=== PATIENT | female | born 1985 | race Caucasian/White ===

== ENCOUNTER 2023-01-23 20:47 | Outpatient (REF) | payer BC, SELFPAY ==
[2023-01-29 14:09] LABS: Age Gdln ACOG Testing Note (.); HPV Aptima Negative (Negative); IGP, Aptima HPV, rfx 16/18,45 Note (.)
== END 2023-01-23 20:48 | disposition home or self-care (01) ==
LOC: LAB 20:47
PROVIDERS: Visit Provider Obstetrics & Gynecology
DX: Z01.419 Encounter for gynecological examination (general) (routine) without abnormal findings (principal)
CPT/HCPCS: 87624; G0145

== ENCOUNTER 2023-07-28 11:04 | Outpatient (OUT) | payer BC, SELFPAY ==
--- NOTE | 2023-07-28 11:12 | MM_ITS ---
Patient Name: SE WOLF MR#: [id number] : 1985 Exam Date: 07/28/2023 Ordering Doctor: DR Ariel Craig . RADIOLOGY REPORT PROCEDURE: MM TOMOSYNTHESIS SCREENING BI COMPARISON: None. INDICATIONS: Screening Calculator Name NCI Breast Cancer Risk Assessment Tool 5 Year Breast Cancer Risk 0.60% Lifetime Breast Cancer Risk 11.10% Personal Breast Cancer No Personal Ovarian Cancer No Treatments None Family Cancers None LOCATION: [facility] BREAST COMPOSITION: The breasts are heterogeneously dense,which may obscure small masses. FINDINGS: DIAGNOSTIC CATEGORY 2--BENIGN FINDING: Scattered benign-appearing calcifications are present. Scattered benign-appearing lymph nodes are present. RIGHT BREAST: No significant suspicious finding. LEFT BREAST: No significant suspicious finding. RECOMMENDATIONS: ROUTINE MAMMOGRAM AND CLINICAL EVALUATION IN 12 MONTHS. PLEASE NOTE: A NORMAL MAMMOGRAM DOES NOT EXCLUDE THE POSSIBILITY OF BREAST CANCER. A CLINICALLY SUSPICIOUS PALPABLE LUMP SHOULD BE BIOPSIED. Dictated by: Deandre Tse MD on 07/28/2023 at 14:05 Approved by: Deandre Tse MD on 07/28/2023 at 14:06
== END 2023-07-28 11:05 | disposition home or self-care (01) ==
LOC: MAMMO 11:06
PROVIDERS: PCP Family Medicine; Visit Provider Obstetrics & Gynecology
DX: Z12.31 Encounter for screening mammogram for malignant neoplasm of breast (principal)
CPT/HCPCS: 77063; 77067

== ENCOUNTER 2024-01-29 20:43 | Outpatient (REF) | payer BC, SELFPAY | END 2024-01-29 20:44 | disposition home or self-care (01) | LOC: LAB 20:43 | PROVIDERS: PCP Family Medicine; Visit Provider Obstetrics & Gynecology | DX: Z01.419 Encounter for gynecological examination (general) (routine) without abnormal findings (principal) | CPT/HCPCS: 88175 ==

== ENCOUNTER 2024-12-18 07:31 | Outpatient (OUT) | payer BC, SELFPAY ==
--- OUTSIDE RECORDS SUMMARY | 2024-12-18 07:33 | XMS_ITS | CCD ---
Author Organization [facility] Care Team Providers Care Cso Name Role Phone Cortez Nayak Unavailable DARNELL ROBERTSON Primary Care Physician KIARA ., DR SAENZ Admitting Unavailable KIARA ., DR SAENZ Attending Unavailable NADERER, DR MASTER Evans Primary Care Unavailable KIARA ., DR SAENZ Consulting Unavailable AICHHOLZ, CLINICAL RESEARCHER TAYLER Admitting Unavailable AICHHOLZ, CLINICAL RESEARCHER TAYLER Attending Unavailable AICHHOLZ, CLINICAL RESEARCHER TAYLER Primary Care Unavailable AICHHOLZ, CLINICAL RESEARCHER TAYLER Consulting Unavailable AICHHOLZ, CLINICAL RESEARCHER TAYLER Admitting Unavailable AICHHOLZ, CLINICAL RESEARCHER TAYLER Attending Unavailable AICHHOLZ, CLINICAL RESEARCHER TAYLER Referring Unavailable AICHHOLZ, CLINICAL RESEARCHER TAYLER Primary Care Unavailable AICHHOLZ, CLINICAL RESEARCHER TAYLER Consulting Unavailable NICOLETTE, DR DARNELL Martinez Admitting Unavailable NICOLETTE, DR DARNELL Martinez Attending Unavailable INESEREMichelle, DR MASTER Evans Primary Care Unavailable NICOLETTE, DR DARNELL Martinez Consulting Unavailable AICHHOLZ, CLINICAL RESEARCHER TAYLER Admitting Unavailable AICHHOLZ, CLINICAL RESEARCHER TAYLER Attending Unavailable AICHHOLZ, CLINICAL RESEARCHER TAYLER Referring Unavailable NADEREMichelle, DR MASTER Evans Primary Care Unavailable AICHHOLZ, CLINICAL RESEARCHER TAYLER Consulting Unavailable FAWWAD, PICKENS H Admitting Unavailable FAWWAD, PICKENS H Attending Unavailable RAMOS, DR MASTER Evans Primary Care Unavailable FAWWAD, PICKENS H Consulting Unavailable Ramesh Paniagua Primary Care Physician [phone] Ramesh Paniagua MD Primary Care Provider Ramesh Paniagua Attending Unavailable HAKEEM SOLIMAN Admitting Unavailable HAKEEM SOLIMAN Attending Unavailable Ramesh Paniagua Admitting Unavailable Ramesh Paniagua Attending Unavailable Ramesh Paniagua Attending Unavailable Ramesh Paniagua Attending Unavailable Ramesh Paniagua Attending Unavailable JOURDAN HAKEEM A Attending Unavailable Ramesh Paniagua Attending Unavailable Ramesh Paniagua Attending Unavailable LETTY ALMENDAREZ Attending Unavailable LETTY ALMENDAREZ Attending Unavailable NATHAN OH Attending Unavailable NATAHN OH Referring Unavailable JOURDAN, CLINICAL RESEARCHER HAKEEM A Attending Unavailabl reyna LISAJOURDAN, CLINICAL RESEARCHER HAKEEM A Admitting UnavailMD Ramesh Cat Attending Unavailable MD Ramesh Paniagua Attending Unavailable MD Ramesh Paniagua Admitting Unavailable MD Ramesh Paniagua Attending Unavailable JOURDAN, CLINICAL RESEARCHER HAKEEM A Attending Unavailabl e JOURDAN, CLINICAL RESEARCHER HAKEEM A Attending UnavailRamesh Cat Attending Unavailable Ramesh Paniagua Admitting Unavailable Ramesh Paniagua Attending Unavailable JOURDAN, CLINICAL RESEARCHER HAKEEM A Attending Unavailabl e JOURDAN CLINICAL RESEARCHER HAKEEM A Attending Unavailabl e Allergies Allergy Classification Reported Allergen(s) Allergy Type Date of Onset Reaction(s) Facility (4 sources) methylPREDNISolone Drug Allergy 3 Unknown [facility] Work Phone: Medications Current Medications Medication Drug Class(es) Dates Sig (Normalized) Sig (Original) atorvastatin 20 mg oral tablet (8 sources) HMG-CoA Reductase Inhibitor Start: 08-10-2024 take 1 tablet by mouth once daily atorvastatin 20 mg Tab 20 mg = 1 tab(s), Oral, Daily, # 90 tab(s), Refills(s) 1, Pharmacy: [facility]/pharmacy #[id number], 162.5, cm, 08/10/24 7:11:00 EDT, Height/Length Dosing, 93.2, kg, 08/10/24 7:11:00 EDT, Weight Dosing Start Date: 08/10/24 Status: Ordered Quantity: 90.0 Unit: tab(s) Repeat number: 2 Start: 01-21-2023 take 1 tablet by aba th in the morning atorvastatin (Lipitor) 20 MG tablet Take 20 mg by mouth in the morning. 01/21/2023 Active brompheniramine maleate 0.4 mg/ml / dextromethorphan hydrobromide 2 mg/ml / pseudoephedrine hydrochloride 6 mg/ml oral solution (2 sources) alpha-Adrenergic Agonist, Uncompetitive R-dnjiwr-E-aspartate Receptor Antagonist, Sigma-1 Agonist Start: 04-28-2022 take 5 mL by mouth four times daily for cough and congestion Bromfed DM oral syrup 5 mL, Oral, QID for cough and congestion, 200 mL, Refill(s) 0, [facility]/pharmacy #[id number], 160, cm, 04/28/22 1:52:00 EST, Height/Length Dosing, 98, kg, 04/28/22 1:52:00 EST, Weight Dosing Start Date: 04/28/22 Status: Ordered cetirizine hydrochloride 10 mg oral tablet (10 sources) Histamine-1 Receptor Antagonist Start: 08-10-2024 take 1 tablet by mouth once daily cetirizine 10 mg Tab See Instructions, TAKE 1 TABLET BY MOUTH EVERY DAY, # 90 tab(s), Refills(s) 4, Pharmacy: [facility]/pharmacy #[id number], 162.5, cm, 08/10/24 7:11:00 EDT, Height/Length Dosing, 93.2, kg, 08/10/24 7:11:00 EDT, Weight Dosing Start Date: 08/10/24 Status: Ordered Quantity: 90.0 Unit: tab(s) Repeat number: 5 Start: 01-16-2023 cetirizine (Zy rTEC) 10 MG tablet Take 10 mg by mouth. 01/16/2023 Active Start: 10-12-2019 take 1 tablet by aba th every twelve hours Cetirizine HCl 10 MG 1 tablet Orally bid for 5 days Sep, Active Dexcom G7 Flash Glucose Monitoring 15 Day System (1 source) Start: 08-10-2024 Dexcom G7 Flash Glucose Monitoring 15 Day System Dexcom G7 Flash Glucose Monitoring 15 Day System, See Instructions, 6 EA, 1, Dexcome G7 Flash Glucose Monitoring 15 Day System Please change every 15 days., [facility]/pharmacy #[id number], Supply, 162.5, cm, 08/10/24 7:11:00 EDT, Height/Length Dosing, 93.2, kg, 08/10/24 7:11:00 EDT, Weight Dosing Start Date: 08/10/24 Status: Ordered Quantity: 6.0 Unit: EA Repeat number: 2 Indications: Personal history of nicotine dependence; Body mass index [BMI] 35.0-35.9, adult; Obesity, class 2; Type 2 diabetes mellitus without complications; Gastro-esophageal reflux disease without esophagitis; Polyphagia; 0.5 ML dulaglutide 9 MG/ML Auto-Injector (4 sources) GLP-1 Receptor Agonist Start: 08-10-2024 inject 4.5 mg by subcutaneous injection every week dulaglutide 4.5 mg/0.5 mL subcutaneous solution 4.5 mg, SubCutaneous, qWeek, # 12 EA, Refills(s) 0, Pharmacy: [facility]/pharmacy #[id number], 162.5, cm, 08/10/24 7:11:00 EDT, Height/Length Dosing, 93.2, kg, 08/10/24 7:11:00 EDT, Weight Dosing Start Date: 08/10/24 Status: Ordered Quantity: 12.0 Unit: EA Repeat number: 1 Start: 10-22-2023 inject 3 mg by subcu taneous injection every week Trulicity Pen 3 mg/0.5 mL subcutaneous solution 3 mg, SubCutaneous, qWeek, # 2 mL, Refills(s) 1, Pharmacy: [facility]/pharmacy #[id number], 162.5, cm, 10/22/23 8:59:00 EDT, Height/Length Dosing, 94.8, kg, 10/22/23 8:59:00 EDT, Weight Dosing Start Date: 10/22/23 Status: Ordered Start: 04-24-2023 inject 4.5 mg by sub cutaneous injection every week Trulicity Pen 4.5 mg/0.5 mL subcutaneous solution 4.5 mg, SubCutaneous, qWeek, # 12 EA, Refills(s) 0, Pharmacy: [facility]/pharmacy #[id number], 162.5, cm, 04/24/23 6:59:00 EST, Height/Length Dosing, 92.9, kg, 04/24/23 6:59:00 EST, Weight Dosing Start Date: 04/24/23 Status: Ordered Trulicity Active dulaglutide (Trulicity) 4.5 MG/0.5ML solution pen-injector (6 sources) Start: 01-16-2023 dulaglutide (Trulicity) 4.5 MG/0.5ML solution pen-injector Inject 4.5 mg under the skin. 01/16/2023 Active Flonase 0.05 mg/inh nasal spray (2 sources) Start: 05-29-2021 take 1 spray(s) nasal route twice daily Flonase 0.05 mg/inh nasal spray 1 spray(s), Nasal, BID, 16 gram, Refill(s) 0, each nostril Start Date: 05/29/21 Status: Ordered metFORMIN hydrochloride 500 mg oral tablet (10 sources) Biguanide Start: 08-10-2024 take 2 tablets by mouth twice daily MetFORMIN (Eqv-Glucophage XR) 500 mg oral tablet, extended release See Instructions, TAKE 2 TABLETS BY MOUTH TWICE A DAY, # 360 tab(s), Refills(s) 0, Pharmacy: [facility]/pharmacy #[id number], 162.5, cm, 08/10/24 7:11:00 EDT, Height/Length Dosing, 93.2, kg, 08/10/24 7:11:00 EDT, Weight Dosing Start Date: 08/10/24 Status: Ordered Quantity: 360.0 Unit: tab(s) Repeat number: 1 Start: 09-15-2023 take 2 tablets by [facility] twice daily MetFORMIN (Eqv-Glucophage XR) 500 mg oral tablet, extended release See Instructions, TAKE 2 TABLETS BY MOUTH TWICE A DAY, # 360 tab(s), Refills(s) 1, Pharmacy: [facility] STORE [id number], 162.5, cm, 07/24/23 7:03:00 EDT, Height/Length Dosing, 93.4, kg, 07/24/23 7:03:00 EDT, Weight Dosing Start Date: 09/15/23 Status: Ordered Start: 03-24-2023 take 2 tablets by [facility] twice daily Glucophage XR 500 mg Tab-ER 1,000 mg = 2 tab(s), Oral, BID, # 360 tab(s), Refills(s) 1, Pharmacy: [facility]/pharmacy #[id number], 162.5, cm, 03/20/23 7:02:00 EST, Height/Length Dosing, 94.5, kg, 03/20/23 7:02:00 EST, Weight Dosing Start Date: 03/24/23 Status: Ordered Start: 12-12-2022 take 1 tablet by [facility] every twenty-four hours in the morning metFORMIN XR (Glucophage-XR) 500 MG 24 hr tablet Take 1,000 mg by mouth in the morning and 1,000 mg before bedtime. 12/12/2022 Active metFORMIN HCl Ac tive omeprazole 40 mg delayed release oral capsule (9 sources) Proton Pump Inhibitor Start: 08-10-2024 take 1 capsule by mouth once daily omeprazole 40 mg Cap-DR See Instructions, TAKE 1 CAPSULE BY MOUTH EVERY DAY, # 90 cap(s), Refills(s) 0, Pharmacy: [facility]/pharmacy #[id number], 162.5, cm, 08/10/24 7:11:00 EDT, Height/Length Dosing, 93.2, kg, 08/10/24 7:11:00 EDT, Weight Dosing Start Date: 08/10/24 Status: Ordered Quantity: 90.0 Unit: cap(s) Repeat number: 1 Start: 12-12-2022 take 1 capsule by mo uth in the morning omeprazole (PriLOSEC) [address] capsule Take 40 mg by mouth in the morning. 03/12/2023 Active Problems Active Problems Problem Classification Problem Date Documented Date Episodic/Chronic Adjustment disorders (5 sources) Grief finding; Translations: [Stress and adjustment reaction] 01-16-2023 Chronic Administrative/socia l admission (2 sources) Patient encounter status; Translations: [Dietary counseling and surveillance] 2024 Episodic Asthma (4 sources) Unspecified asthma, uncomplicated; Translations: [Mild intermittent asthma] Onset: 05-31-2021 10-14-2022 Chronic Diabetes mellitus with complications (2 sources) Hyperglycemia due to type 2 diabetes mellitus; Translations: [Type 2 diabetes mellitus with hyperglycemia] 2024 Chronic Diabetes mellitus without complication (8 sources) Type 2 diabetes mellitus without complications; Translations: [Type 2 diabetes mellitus without complication] Onset: 05-31-2021 Chronic Disorders of lipid metabolism (11 sources) Hyperlipidemia, unspecified; Translations: [Pure hypercholesterolemia, unspecified] Onset: 05-31-2021 Chronic Esophageal disorders (3 sources) Gastroesophageal reflux disease without esophagitis 12-12-2022 Chronic Nonmalignant breast conditions (8 sources) Fibrocystic disease of breast; Translations: [Diffuse cystic mastopathy of unspecified breast] Onset: 01-29-2024 01-29-2024 Chronic Nutritional deficiencies (2 sources) Vitamin D deficiency; Translations: [Vitamin D deficiency, unspecified] 2024 Chronic Osteoarthritis (3 sources) Arthritis of joint of right shoulder region; Translations: [Primary osteoarthritis, right shoulder] Onset: 12-26-2020 Resolved: 12-26-2020 Chronic Other nutritional; endocrine; and metabolic disorders (3 sources) Calorie overload 11-11-2022 Chronic Other screening for suspected conditions (not mental disorders or infectious disease) (14 sources) Encounter for screening for malignant neoplasm of cervix; Translations: [Patient encounter status] Onset: 09-25-2021 Episodic Other upper respiratory disease (1 source) Allergic rhinitis; Translations: [Allergic rhinitis, unspecified] Chronic Other upper respiratory disease (3 sources) Seasonal allergy 01-16-2023 Chronic Other upper respiratory infections (1 source) Chronic sinusitis, unspecified; Translations: [CHRONIC SINUSITIS UNSPECIFIED] Onset: 05-31-2021 Chronic Other upper respiratory infections (1 source) Acute upper respiratory infection; Translations: [Acute upper respiratory infection, unspecified] Onset: 04-28-2022 Episodic Unclassified (3 sources) CONTACT W/AND (SUSP) EXPOS COVID-19; Translations: [CONTACT W/AND (SUSP) EXPOS COVID-19] Onset: 09-06-2021 Unclassified (2 sources) COUGH, UNSPECIFIED; Translations: [COUGH, UNSPECIFIED] Onset: 05-31-2021 Past or Other Problems Problem Classification Problem Date Documented Date Episodic/Chronic Immunizations and screening for infectious disease (1 source) Encounter for screening for human papillomavirus (HPV); Translations: [ENC SCREENING HUMAN PAPILLOMAVIRUS] Onset: 09-26-2021 Episodic Other aftercare (1 source) Other termite renewal inspector (current) drug therapy; Translations: [OTH DESIGN MAINTENANCE ENGINEER CURRENT DRUG THERAPY] Onset: 05-31-2021 Episodic Other aftercare (1 source) jail (current) use of oral hypoglycemic drugs; Translations: [DESIGN MAINTENANCE ENGINEER USE ORAL HYPOGLYCEMIC DX] Onset: 05-31-2021 Episodic Other connective tissue disease (1 source) Other shoulder lesions, right shoulder; Translations: [Tendinitis of right rotator cuff M75.81] Onset: 12-26-2020 Resolved: 12-26-2020 Episodic Other non-traumatic joint disorders (1 source) Pain in right shoulder; Translations: [Acute pain of right shoulder M25.511] Onset: 12-26-2020 Resolved: 12-26-2020 Episodic Unclassified (1 source) CONTACT W/AND (SUSP) EXPOS COVID-19; Translations: [CONTACT W/AND (SUSP) EXPOS COVID-19] Onset: 09-04-2021 Unclassified (1 source) COUGH, UNSPECIFIED; Translations: [COUGH, UNSPECIFIED] Onset: 05-29-2021 Results Test Name Value Interpretation Reference Range [facility] Family Medicine Office/Clini c Noteon 12-07-2024 Family Medicine Office/Clinic Note Family Medicine Office/Clinic Note Chief Complaint Spot on Side HPI Staff Pt presents today due to spot on side. Denies pain. History of Present Illness 39-year-old female presenting with a cyst on her right side. The cyst has been present for several months and has been manipulated multiple times by the patient and her , resulting in temporary drainage but recurrent filling. The patient reports that the cyst occasionally emits a foul odor when drained, and it has been resistant to complete evacuation despite attempts with tweezers and squeezing. The patient has not experienced significant pain from the cyst, although there is occasional bleeding when manipulated. She has not sought previous medical intervention for this issue until now. Review of Systems PHQ Score Initial Depression Screen Score: 0 SCORE - Integumentary: Reports presence of a cyst on the back with occasional foul odor and bleeding upon manipulation. Denies significant pain. Physical Exam Vitals & Measurements T: 36.9 ???C(Oral) HR: 98(Peripheral) RR: 18 BP: 120/78 SpO2: 98% HT: 159.5 cm HT: 63 in WT: 87.8 kg WT: 193.566 lb BMI: 34.51 General: alert, no acute distress Integumentary: Examination of the cyst on the right side, noted to be firm with no significant discharge upon manipulation Head: no trauma, normocephalic Neck: Trachea midline, no adenopathy, no tenderness Eye: normal conjunctiva, sclera clear Cardiovascular: regular rate and rhythm, normal peripheral perfusion Respiratory: Lungs CTA, respirations non labored Assessment/Plan 1. Epidermal cyst (L72.0) - Plan to monitor the cyst for any signs of infection or significant changes. - Discussed the option of surgical removal if the cyst becomes problematic or symptomatic. - Advised to avoid further manipulation to prevent irritation or infection. - F/U as scheduled Follow-up No qualifying data available Patient Education Epidermoid Cyst Drainage Problem List/Past Medical History Ongoing Controlled type 2 diabetes mellitus without complication, without long-term current use of insulin Excessive dietary caloric intake GERD without esophagitis Grief reaction Mild intermittent asthma without complication Mixed hyperlipidemia Seasonal allergies Stress and adjustment reaction Historical No qualifying data Procedure/Surgical History Bilateral tubal ligation, Hysterectomy. Medications #####, 0 atorvastatin 20 mg Tab, 20 mg= 1 tab(s), Oral, Daily, 1 refills cetirizine 10 mg Tab, See Instructions, 4 refills Dexcom G7 Flash Glucose Monitoring 15 Day System, See Instructions dulaglutide 4.5 mg/0.5 mL subcutaneous solution, 4.5 mg, SubCutaneous, qWeek MetFORMIN (Eqv-Glucophage XR) 500 mg oral tablet, extended release, See Instructions omeprazole 40 mg Cap-DR, See Instructions Allergies No Known Allergies Social History Alcohol Current. Beer. 1-2 times per year., 02/09/2024 Substance Abuse Never., 02/09/2024 Tobacco Former smoker, quit more than 30 days ago, quit 20 years ago Tobacco Use:. Never Smokeless Tobacco Use:. Household tobacco concerns: No., 12/07/2024 Family History Diabetes mellitus type 2: Father. Hyperlipidemia: Mother and Father. Hypertension: Mother and Father. Immunizations Vaccine Date Status Comments influenza virus vaccine, inactivated 02/10/2024 Given influenza virus vaccine, inactivated 01/16/2023 Given influenza virus vaccine, inactivated 12/29/2021 Recorded SARS-CoV-2 (COVID-19) mRNA-1273 vaccine 01/25/2021 Recorded influenza virus vaccine, inactivated 01/01/2021 Recorded SARS-CoV-2 (COVID-19) Ad26 vaccine 05/22/2020 Recorded 2022-09-26: TPV21 influenza virus vaccine, inactivated 12/22/2019 Recorded diphtheria/pertussi s, acel/tetanus adult 09/09/2019 Recorded influenza virus vaccine, inactivated 02/03/2017 Recorded influenza virus vaccine, inactivated 01/21/2014 Recorded Normal [facility] Comment on above: Result Comment: Elec tronically Signed By: HAKEEM SOLIMAN CNP\.br\Date and Time Signed: 12/07/24 16:15 EDT Family Medicine Office/Clini c Noteon 11-25-2024 Family Medicine Office/Clinic Note Family Medicine Office/Clinic Note Chief Complaint The patient presents for management of type 2 diabetes mellitus and weight concerns. HPI Staff pt is here for f/u first month diabetes Do you have any of the following symptoms? Foot Exam: Eye Exam: April 2024 Hgb A1C %: 11.8 % High (08/10/24 07:55:00) Hgb A1c POC: 6.4 % (02/10/24 07:19:00) refills needed: no History of Present Illness 39-year-old female presenting with type 2 diabetes mellitus management and weight concerns. Her blood sugar levels have been below 200 mg/dL recently, with an average of 186 mg/dL over the last 30 days and an A1c of 7.7%. She is working on dietary modifications, particularly reducing portion sizes and increasing water intake, to better manage her blood sugar levels. The patient uses a Dexcom device for continuous glucose monitoring and has set alerts for blood sugar levels exceeding 250 mg/dL, which she plans to lower to 200 mg/dL. She engages in physical activity by walking around her workplace after meals to help manage her blood sugar levels. The patient has a BMI of 34.0-34.9, indicating obesity, and she is focused on weight management through dietary changes and physical activity. She has a history of nicotine dependence but is now a former smoker. The patient reports dry skin on her feet, occasionally leading to cracks, and experiences cold feet during winter, which she manages with thick socks and slippers. Review of Systems PHQ Score Initial Depression Screen Score: 0 SCORE - Endocrine: Reports blood sugar levels below 200 mg/dL, average of 186 mg/dL over 30 days, A1c of 7.7%. - Dermatological: Reports dry skin on feet with occasional cracks. - Neurological: Denies numbness or tingling in feet. - Musculoskeletal: Reports regular physical activity by walking at work. Physical Exam Vitals & Measurements T: 36.3 ???C(Temporal Artery) HR: 102(Peripheral) RR: 18 BP: 122/68 SpO2: 96% HT: 159.5 cm HT: 63 in WT: 88.0 kg WT: 194.007 lb BMI: 34.59 General: alert, no acute distress ENMT: TM's clear, oral mucosa moist, no pharyngeal erythema or exudate Cardiovascular: regular rate and rhythm, normal peripheral perfusion Respiratory: Lungs CTA, respirations non labored Extremities: no deformity, no trauma Foot: normal sensation, pedal pulses palpable Neurological: Sensory examination of the feet was conducted, with the patient identifying touch on various parts of the feet. Diabetic Foot Exam Decreased Monofilament Sensation Foot: Left - Normal, Right - Normal Bunions/Foot Deformity: Left - Normal, Right - Normal Abnormal Pulse Foot: Left - Normal, Right - Normal Skin Lesions Foot: Left - Normal, Right - Normal Vibratory Sensation Foot: Left - Normal, Right - Normal Foot Exam Result: Normal foot exam Assessment/Plan 1. Controlled type 2 diabetes mellitus without complication, without long-term current use of insulin (E11.9: Type 2 diabetes mellitus without complications) - Continue monitoring blood glucose levels using Dexcom device. - Adjust dietary habits to reduce portion sizes and increase water intake. - Engage in regular physical activity, such as walking after meals. - Plan to lower blood sugar alert threshold from 250 mg/dL to 200 mg/dL. - Awaiting HgbA1C results Ordered: HgbA1c 2. Former smoker (Z87.891: Personal history of nicotine dependence) - Maintain smoking cessation status. 3. BMI 34.0-34.9,adult (Z68.34: Body mass index [BMI] 34.0-34.9, adult) - Focus on weight management through dietary changes and physical activity. Total time spent preparing the chart, conducting of the encounter with the patient and family and time spent documenting, reviewing, and ordering tests was 25 minutes. Follow-up No qualifying data available Problem List/Past Medical History Ongoing Controlled type 2 diabetes mellitus without complication, without long-term current use of insulin Excessive dietary caloric intake GERD without esophagitis Grief reaction Mild intermittent asthma without complication Mixed hyperlipidemia Seasonal allergies Stress and adjustment reaction Historical No qualifying data Procedure/Surgical History Bilateral tubal ligation, Hysterectomy. Medications #####, 0 atorvastatin 20 mg Tab, 20 mg= 1 tab(s), Oral, Daily, 1 refills cetirizine 10 mg Tab, See Instructions, 4 refills Dexcom G7 Flash Glucose Monitoring 15 Day System, See Instructions dulaglutide 4.5 mg/0.5 mL subcutaneous solution, 4.5 mg, SubCutaneous, qWeek MetFORMIN (Eqv-Glucophage XR) 500 mg oral tablet, extended release, See Instructions omeprazole 40 mg Cap-DR, See Instructions Allergies No Known Allergies Social History Alcohol Current. Beer. 1-2 times per year., 02/09/2024 Substance Abuse Never., 02/09/2024 Tobacco Former smoker, quit more than 30 days ago, quit 20 years ago Tobacco Use:. Never Smokeless Tobacco Use:. Household tobacco concerns: No., 11/25/2024 Former s (more content not included)... Normal [facility] Comment on above: Result Comment: Elec tronically Signed By: HAKEEM SOLIMAN CNP\.br\Date and Time Signed: 11/25/24 16:12 EDT Ambulatory Visit Summaryon 0 09-14-2024 Ambulatory Visit Summary Ambulatory Visit Summary SE [facility]OLF :1985 Visit Date:09/14/2024 Ambulatory Visit Instructions Your Diagnosis Controlled type 2 diabetes mellitus without complication, without long-term current use of insulin Non-smoker BMI 35.0-35.9,adult Your Care Team Attending Physician - HAKEEM SOLIMAN CNP Primary Care Physician - Ramesh Paniagua MD This Is Your Medications List metformin (MetFORMIN (Eqv-Glucophage XR) 500 mg oral tablet, extended release) Contact prescribing physician if questions or concerns Misc Prescription (#####) Misc Prescription (DexPeerform G7 Flash Glucose Monitoring 15 Day System) atorvastatin (atorvastatin 20 mg Tab) cetirizine (cetirizine 10 mg Tab) dulaglutide (dulaglutide 4.5 mg/0.5 mL subcutaneous solution) omeprazole (omeprazole 40 mg Cap-DR) Procedures Performed Bilateral tubal ligation, Hysterectomy. Discharge Vitals Heart Rate (Peripheral) 95 Blood Pressure 122/76 Height 159.5 cm Height 63 in Weight 89.8 kg Weight 197.975 lb BMI 35.3 What to do next Scheduled Follow-Up Appointments 2024 3:40 PM EDT With: HAKEEM SOLIMAN CNP Where: [facility] [address] [address]- Medications What How Much When Why Instructions Unchanged metformin (MetFORMIN (Eqv-Glucophage XR) 500 mg oral tablet, extended release) See instructions TAKE 2 TABLETS BY MOUTH TWICE A DAY Pickup at [facility]/pharmacy #[id number] Unchanged atorvastatin (atorvastatin 20 mg Tab) 1 Tablets By Mouth Every day Contact prescribing physician if questions or concerns Unchanged cetirizine (cetirizine 10 mg Tab) See instructions TAKE 1 TABLET BY MOUTH EVERY DAY Contact prescribing physician if questions or concerns Unchanged dulaglutide (dulaglutide 4.5 mg/ 0.5 mL subcutaneous solution) 4.5 Milligram Subcutaneous Every week Contact prescribing physician if questions or concerns Unchanged Misc Prescription (#####) 0 6 EA, 0 Refill(s) Contact prescribing physician if questions or concerns Unchanged Misc Prescription (Dexcom G7 Flash Glucose Monitoring 15 Day System) See instructions Excessive dietary caloric intake Former smoker BMI 35.0-35.9,adult Class 2 severe obesity due to excess calories with serious comorbidity and body mass index (BMI) of 35.0 to 35.9 in adult Controlled type 2 diabetes mellitus without complication, without long-term current use of insulin GERD without esophagitis Dexcome G7 Flash Glucose Monitoring 15 Day System Please change every 15 days. Contact prescribing physician if questions or concerns Unchanged omeprazole (omeprazole 40 mg Cap-DR) See instructions TAKE 1 CAPSULE BY MOUTH EVERY DAY Contact prescribing physician if questions or concerns Pharmacy Information [facility]/pharmacy #[id number]: [address], [place] [id number] [phone] Allergies No Known Allergies Problems Ongoing - Any problem that you are currently receiving treatment for. Controlled type 2 diabetes mellitus without complication, without long-term current use of insulin Excessive dietary caloric intake GERD without esophagitis Grief reaction Mild intermittent asthma without complication Mixed hyperlipidemia Seasonal allergies Stress and adjustment reaction Patient Survey You may receive a survey via text or e-mail asking about your office visit. Please share your experience with us by completing your survey. We appreciate your feedback and thank you for choosing us for your care. Patient Portal You may access all of your results and other medical record information on our secure patient portal. If you are not signed up for this yet, please contact [employer] at [phone] to get signed up today. Language Information Language assistance services are available as needed. [facility] Family Medicine Office/Clini c Noteon 09-14-2024 Family Medicine Office/Clinic Note Family Medicine Office/Clinic Note Chief Complaint FMLA paperwork needs filled out The patient presents for diabetes management and BMI evaluation. HPI Staff Se is a 39 year old female presenting for FMLA paperwork filled out Concerns: Refills: metformin needs renewed History of Present Illness 39-year-old female presenting with diabetes management and BMI evaluation. The patient has a history of diabetes mellitus, with a recent A1c level that was not optimal at 11.8%, prompting a review of her management plan. She has made significant lifestyle changes, including reducing her blood glucose levels to 142 mg/dL, and has not experienced levels above 250 mg/dL recently per CGM The patient reports previous poor dietary habits, including consuming two cups of hot cocoa daily, which she has since addressed. The patient has been prescribed metformin, but there was an issue with the pharmacy requiring authorization for a refill. She has not been on insulin, despite a previous suggestion by another physician, due to her improved glucose control. The patient has a BMI of 35.0-35.9, indicating obesity, which is a factor in her diabetes management. She is a non-smoker, which is beneficial for her overall health management. Review of Systems PHQ Score Initial Depression Screen Score: 0 SCORE - Endocrine: Reports improved blood glucose control, denies recent hyperglycemic episodes. - General: Denies smoking. Physical Exam Vitals & Measurements HR: 95(Peripheral) BP: 122/76 SpO2: 98% HT: 159.5 cm HT: 63 in WT: 197.975 lb WT: 89.8 kg BMI: 35.3 General: alert, no acute distress Cardiovascular: regular rate and rhythm, normal peripheral perfusion Respiratory: Lungs CTA, respirations non labored Extremities: no deformity, no trauma Neurological: oriented x 4, LOC appropriate for age speech normal Assessment/Plan 1. Controlled type 2 diabetes mellitus without complication, without long-term current use of insulin (E11.9: Type 2 diabetes mellitus without complications) - Continue metformin therapy and monitor blood glucose levels regularly- refilled at this appointment - Continue CGM- patient will call if she needs refills of the Dex-Com - FMLA papers completed and faxed to [employer] - Schedule follow-up appointment in three months to reassess A1c levels and overall diabetes management. 2. Non-smoker (Z78.9: Other specified health status) - Continue to encourage non-smoking status as part of overall health maintenance. 3. BMI 35.0-35.9,adult (Z68.35: Body mass index [BMI] 35.0-35.9, adult) - Plan to monitor weight and encourage lifestyle modifications to reduce BMI. Orders: metformin, See Instructions, TAKE 2 TABLETS BY MOUTH TWICE A DAY, # 360 tab(s), Refills(s) 0, Pharmacy: [facility]/pharmacy #[id number], 159.5, cm, 09/14/24 15:21:00 EDT, Height/Length Dosing, 89.8, kg, 09/14/24 15:21:00 EDT, Weight Dosing Follow-up No qualifying data available Patient Education Continuous Glucose Monitoring, Adult Problem List/Past Medical History Ongoing Controlled type 2 diabetes mellitus without complication, without long-term current use of insulin Excessive dietary caloric intake GERD without esophagitis Grief reaction Mild intermittent asthma without complication Mixed hyperlipidemia Seasonal allergies Stress and adjustment reaction Historical No qualifying data Procedure/Surgical History Bilateral tubal ligation, Hysterectomy. Medications #####, 0 atorvastatin 20 mg Tab, 20 mg= 1 tab(s), Oral, Daily, 1 refills cetirizine 10 mg Tab, See Instructions, 4 refills Dexcom G7 Flash Glucose Monitoring 15 Day System, See Instructions, 1 refills dulaglutide 4.5 mg/0.5 mL subcutaneous solution, 4.5 mg, SubCutaneous, qWeek MetFORMIN (Eqv-Glucophage XR) 500 mg oral tablet, extended release, See Instructions omeprazole 40 mg Cap-DR, See Instructions Allergies No Known Allergies Social History Alcohol Current. Beer. 1-2 times per year., 02/09/2024 Substance Abuse Never., 02/09/2024 Tobacco Former smoker, quit more than 30 days ago, quit 20 years ago Tobacco Use:. Never Smokeless Tobacco Use:. Household tobacco concerns: No., 09/14/2024 Former smokeless tobacco user, quit more than 30 days ago Smokeless Tobacco Use:. Cigarettes, 04/28/2022 Family History Diabetes mellitus type 2: Father. Hyperlipidemia: Mother and Father. Hypertension: Mother and Father. Immunizations Vaccine Date Status Comments influenza virus vaccine, inactivated 02/10/2024 Given influenza virus vaccine, inactivated 01/16/2023 Given influenza virus vaccine, inactivated 12/29/2021 Recorded SARS-CoV-2 (COVID-19) mRNA-1273 vaccine 01/25/2021 Recorded influenza virus vaccine, inactivated 01/01/2021 Recorded SARS-CoV-2 (COVID-19) Ad26 vaccine 05/22/2020 Recorded 2022-09-26: TPV21 influenza virus vaccine, inactivated 12/22/2019 Recorded diphtheria/pertussi s, acel/tetanus adult 09/09/2019 Recorded influenza virus vaccine, (more content not included)... Normal [facility] Comment on above: Result Comment: Elec tronically Signed By: HAKEEM SOLIMAN CNP\Date and Time Signed: 09/14/24 16:01 EDT Ambulatory Visit Summaryon 0 08-24-2024 Ambulatory Visit Summary Ambulatory Visit Summary SE WOLF :1985 Visit Date:08/24/2024 Ambulatory Visit Instructions Your Care Team Attending Physician - Ramesh Paniagua MD Primary Care Physician - Ramesh Paniagua MD This Is Your Medications List [facility] [place], [place] Prescription (#####) Mis Prescription (DexPeerform G7 Flash Glucose Monitoring 15 Day System) atorvastatin (atorvastatin 20 mg Tab) cetirizine (cetirizine 10 mg Tab) dulaglutide (dulaglutide 4.5 mg/0.5 mL subcutaneous solution) metformin (MetFORMIN (Eqv-Glucophage XR) 500 mg oral tablet, extended release) omeprazole (omeprazole 40 mg Cap-DR) Procedures Performed Bilateral tubal ligation, Hysterectomy. Discharge Vitals Temperature (Temporal Artery) 36.5 ???C Heart Rate (Peripheral) 107 Blood Pressure 126/88 Height 159.5 cm Height 63 in Weight 93.3 kg Weight 205.691 lb BMI 36.67 What to do next Scheduled Follow-Up Appointments Friday 3:20 PM EST With: Ramesh Paniagua MD Where: [place] [phone]- Medications What How Much When Why Instructions Unchanged atorvastatin (atorvastatin 20 mg Tab) 1 Tablets By Mouth Every day Unchanged cetirizine (cetirizine 10 mg Tab) See instructions TAKE 1 TABLET BY MOUTH EVERY DAY Unchanged dulaglutide (dulaglutide 4.5 mg/ 0.5 mL subcutaneous solution) 4.5 Milligram Subcutaneous Every week Unchanged metformin (MetFORMIN (Eqv-Glucophage XR) 500 mg oral tablet, extended release) See instructions TAKE 2 TABLETS BY MOUTH TWICE A DAY Unchanged Misc Prescription (#####) 0 6 EA, 0 Refill(s) Unchanged Misc Prescription (Dexcom G7 Flash Glucose Monitoring 15 Day System) See instructions Excessive dietary caloric intake Former smoker BMI 35.0-35.9,adult Class 2 severe obesity due to excess calories with serious comorbidity and body mass index (BMI) of 35.0 to 35.9 in adult Controlled type 2 diabetes mellitus without complication, without long-term current use of insulin GERD without esophagitis Dexcome G7 Flash Glucose Monitoring 15 Day System Please change every 15 days. Unchanged omeprazole (omeprazole 40 mg Cap-DR) See instructions TAKE 1 CAPSULE BY MOUTH EVERY DAY Allergies No Known Allergies Problems Ongoing - Any problem that you are currently receiving treatment for. Controlled type 2 diabetes mellitus without complication, without long-term current use of insulin Excessive dietary caloric intake GERD without esophagitis Grief reaction Mild intermittent asthma without complication Mixed hyperlipidemia Seasonal allergies Stress and adjustment reaction Patient Survey You may receive a survey via text or e-mail asking about your office visit. Please share your experience with us by completing your survey. We appreciate your feedback and thank you for choosing us for your care. [facility] Family Medicine Office/Clini c Noteon 08-24-2024 Family Medicine Office/Clinic Note Family Medicine Office/Clinic Note Chief Complaint Fu to bloodwork and blood sugars Persistent elevation in blood glucose levels. HPI Staff To discuss labs and Blood sugars. CHRISTOPHER due today Patient is here for follow up on Diabetes. How often are you checking your blood sugars? 1 times per day What are your average readings? 200 Paresthesias, Ulcerations or sores? no Lisinopril, aspirin, statin therapy? Yes Foot Exam: NO Eye Exam: yes, beginning of year Last A1c: Hgb A1C %: 11.8 % High (08/10/24 07:55:00) Hgb A1c POC: 6.4 % (02/10/24 07:19:00) Questions/Concerns: Here for follow up on GERD. Melena? no Dysphagia? no Weight loss? no Persistent vomiting? no Have you ever had an EGD? no Refill needed?: _ Patient is here for follow up on hyperlipidemia: Do you have side effects from the medication? no Refill needed?: yes Yearly Lipid labs: Chol: 159 mg/dL (08/10/24 07:55:00) HDL: 43 mg/dL (08/10/24 07:55:00) LDL Direct: 103 mg/dL (08/10/24 07:55:00) Tri mg/dL High (08/10/24 07:55:00) VLDL: 39 mg/dL (08/10/24 07:55:00) History of Present Illness - The patient is a 39-year-old female presenting with uncontrolled blood glucose levels secondary to Type 2 Diabetes Mellitus. - Blood glucose levels have been persistent and rising, despite attempts to manage with available medication. - The patient has struggled to adhere to the prescribed 4.5 mg dose of Trulicity, having to resort to lesser doses due to supply issues at her pharmacy. - Past attempts to use Jardiance for glucose management were halted because of recurrent yeast infections. - Her management efforts have been impacted by periods of depression, but a recent reduction in job-related stress is expected to facilitate improved management. - The patient emphasizes success in management when medication is correctly administered in conjunction with diet and exercise. Review of Systems PHQ Score Initial Depression Screen Score: 0 SCORE Physical Exam Vitals & Measurements T: 36.5 ???C(Temporal Artery) HR: 107(Peripheral) BP: 126/88 SpO2: 98% HT: 159.5 cm HT: 63 in WT: 205.691 lb WT: 93.3 kg BMI: 36.67 General: alert, no acute distress ENMT: oral mucosa moist Cardiovascular: Regular rate and rhythm, normal peripheral perfusion Respiratory: Lungs clear to auscultation, respirations non labored Extremities: no deformity, no trauma Neurological: oriented x 4, level of consciousness appropriate for age, CN II-XII intact, motor strength equal & normal bilaterally, speech normal Abdomen: Soft, Non-tender, Non-distended, + Bowel sounds Assessment/Plan 1. Type 2 diabetes mellitus without complications (E11.9) - Ensure regular access and administration of 4.5 mg Trulicity dosage. - Advise on dietary modifications focusing on high-protein, low-carbohydrate intake. - Encourage consistent physical activity to support weight loss and glucose control. - Avoid Jardiance due to past adverse effects. - Regular monitoring needed, particularly with the use of a newly acquired glucose sensor. 2. Depression, unspecified (F32.A) - Maintain counseling and support interventions. - Monitor depressive symptoms, considering medication review if needed. - Lifestyle improvement expected with recent reduction in job-related stress. - 39-year-old female with history of Type 2 Diabetes Mellitus presenting with uncontrolled blood glucose levels. - Issues with receiving prescribed Trulicity dosage from the pharmacy, necessitating the use of lower doses. - Discontinued use of Jardiance due to yeast infections. - Depressive episodes and stress from work noted as influencing glycemic control but are improving with a recent job change. During our conversation, I discussed the challenges with managing the patient's Type 2 Diabetes Mellitus, especially due to inconsistent access to her prescribed dose of Trulicity. Switching Trulicity dosages has been necessary because of supply issues, which we discussed could impact her glucose levels. We went over the negative experiences with Jardiance due to yeast infections and agreed to avoid its use. We talked about the importance of maintaining a specific diet and incorporating exercise to manage her diabetes effectively. We also addressed how her mood has affected her health behaviors and noted a positive recent job change that may reduce her stress and improve self-care. The patient was informed about the importance of consistently monitoring glucose levels and the goal of losing 10 pounds over the next three months. - Ensure you get the correct 4.5 mg dose of Trulicity to manage diabetes more effectively. - Follow a high-protein, low-carbohydrate diet. - Engage in regular physical activity to support your health goals. - Use the glucose monitoring sensor you received to track blood sugar levels. - Continue attending counseling sessions to address depression. - Aim for a 10-pound weight loss over the next thre (more content not included)... Normal [facility] Comment on above: Result Comment: Elec tronically Signed By: Siva ALMAZAN, Ramesh Flores.amisha\Date and Time Signed: 08/24/24 15:46 EDT Ambulatory Visit Summaryon 0 08-10-2024 Ambulatory Visit Summary Ambulatory Visit Summary SE WOLF :1985 Visit Date:08/10/2024 Ambulatory Visit Instructions Your Diagnosis Excessive dietary caloric intake Former smoker BMI 35.0-35.9,adult Class 2 severe obesity due to excess calories with serious comorbidity and body mass index (BMI) of 35.0 to 35.9 in adult Controlled type 2 diabetes mellitus without complication, without long-term current use of insulin GERD without esophagitis Your Care Team Attending Physician - Ramesh Paniagua MD Primary Care Physician - Ramesh Paniagua MD This Is Your Medications List Misc Prescription (Dexcom G7 Flash Glucose Monitoring 15 Day System) atorvastatin (atorvastatin 20 mg Tab) cetirizine (cetirizine 10 mg Tab) dulaglutide (dulaglutide 4.5 mg/0.5 mL subcutaneous solution) metformin (MetFORMIN (Eqv-Glucophage XR) 500 mg oral tablet, extended release) omeprazole (omeprazole 40 mg Cap-DR) Procedures Performed Bilateral tubal ligation, Hysterectomy. Discharge Vitals Temperature (Oral) 36.3 ???C Heart Rate (Peripheral) 90 Respiratory Rate 20 Blood Pressure 118/82 Height 162.5 cm Height 64 in Weight 93.2 kg Weight 205.471 lb BMI 35.29 What to do next Scheduled Follow-Up Appointments Friday 3:20 PM EST With: Ramesh Paniagua MD Where: [place] [phone]- Medications What How Much When Why Instructions New Misc Prescription (Dexcom G7 Flash Glucose Monitoring 15 Day System) See instructions Excessive dietary caloric intake Former smoker BMI 35.0-35.9,adult Class 2 severe obesity due to excess calories with serious comorbidity and body mass index (BMI) of 35.0 to 35.9 in adult Controlled type 2 diabetes mellitus without complication, without long-term current use of insulin GERD without esophagitis Refills: 1 Dexcome G7 Flash Glucose Monitoring 15 Day System Please change every 15 days. Pickup at [facility]/pharmacy #[id number] Unchanged atorvastatin (atorvastatin 20 mg Tab) 1 Tablets By Mouth Every day Pickup at [facility]/pharmacy #[id number] Unchanged cetirizine (cetirizine 10 mg Tab) See instructions TAKE 1 TABLET BY MOUTH EVERY DAY Pickup at [facility]/pharmacy #[id number] Unchanged dulaglutide (dulaglutide 4.5 mg/ 0.5 mL subcutaneous solution) 4.5 Milligram Subcutaneous Every week Pickup at [facility]/pharmacy #[id number] Unchanged metformin (MetFORMIN (Eqv-Glucophage XR) 500 mg oral tablet, extended release) See instructions TAKE 2 TABLETS BY MOUTH TWICE A DAY Pickup at [facility]/pharmacy #6191 Unchanged omeprazole (omeprazole 40 mg Jimmy-DR) See instructions TAKE 1 CAPSULE BY MOUTH EVERY DAY Pickup at [facility]/pharmacy #[id number] [id number] [address], [place] [id number] [phone] Allergies No Known Allergies Problems Ongoing - Any problem that you are currently receiving treatment for. Controlled type 2 diabetes mellitus without complication, without long-term current use of insulin Excessive dietary caloric intake GERD without esophagitis Grief reaction Mild intermittent asthma without complication Mixed hyperlipidemia Seasonal allergies Stress and adjustment reaction Patient Survey You may receive a survey via text or e-mail asking about your office visit. Please share your experience with us by completing your survey. We appreciate your feedback and thank you for choosing us for your care. Normal [facility] CBC w/ Auto Diffon 5 Basophils/100 WBC (Bld) 0.8 % Normal 0.0-2.0 [facility] Comment on above: Performed By: #### 2 [id number] #### [facility] [address] [place] [address] Basophils/Leukocytes Auto (Bld) [Pure # fraction] 0.1 E9/L Normal 0.0-0.2 [facility] Comment on above: Performed By: #### 2 [id number] #### [facility] [address] [place] [address] Eosinophils (Bld) [#/Vol] 0.1 E9/L Normal 0.0-0.5 [facility] Comment on above: Performed By: #### 2 [id number] #### [facility] [address] [place] [address] Eosinophils/100 WBC (Bld) 2.2 % Normal 0.0-8.0 [facility] Comment on above: Performed By: #### 2 [id number] #### [facility] [address] [place] [address] Erythrocyte distribution width (RBC) [Ratio] 13.4 % Normal 10.9-14.2 [facility] Comment on above: Performed By: #### 2 [id number] #### [facility] [address] [place] [address] Hematocrit (Bld) [Volume fraction] 43.5 % Normal 34.0-46.0 [facility] Comment on above: Performed By: #### 2 [id number] #### [facility] [address] [place] [address] Hemoglobin (Bld) [Mass/Vol] 15.0 g/dL Normal 12.0-16.0 [facility] Comment on above: Performed By: #### 2 [id number] #### [facility] [address] [place] [address] Lymphocytes (Bld) [#/Vol] 1.9 E9/L Normal 1.0-4.0 [facility] Comment on above: Performed By: #### 2 [id number] #### [facility] [address] [place] [address] Lymphocytes/100 WBC (Bld) 32.4 % Normal 14.0-50.0 [facility] Comment on above: Performed By: #### 2 [id number] #### [facility] [address] [place] [address] MCH (RBC) [Entitic mass] 30.4 pg Normal 27.0-34.0 [facility] Comment on above: Performed By: #### 2 [id number] #### [facility] [address] [place] [address] MCHC (RBC) [Mass/Vol] 34.5 g/dL Normal 31.4-36.0 [facility] Comment on above: Performed By: #### 2 [id number] #### [facility] [address] [place] [address] MCV (RBC) [Entitic vol] 88.2 fL Normal 80.0-100.0 [facility] Comment on above: Performed By: #### 2 [id number] #### [facility] [address] [place] [address] Monocytes (Bld) [#/Vol] 0.5 E9/L Normal 0.2-1.0 [facility] Comment on above: Performed By: #### 2 [id number] #### [facility] [address] [place] [address] Neutrophils (Bld) [#/Vol] 3.4 E9/L Normal 2.0-7.5 [facility] Comment on above: Performed By: #### 2 [id number] #### [facility] [address] [place] [address] Neutrophils/100 WBC (Bld) 56.9 % Normal 36.0-75.0 [facility] Comment on above: Performed By: #### 2 [id number] #### [facility] [address] [place] [address] Platelet 415.0 E9/L Normal 150.0-500.0 [facility] Comment on above: Performed By: #### 2 [id number] #### [facility] [address] [place] [address] Platelet mean volume (Bld) [Entitic vol] 6.8 fL Normal 6.4-10.8 [facility] Comment on above: Performed By: #### 2 [id number] #### [facility] [address] [place] [address] RBC (Bld) [#/Vol] 4.9 E12/L Normal 4.3-5.9 [facility] Comment on above: Performed By: #### 2 [id number] #### [facility] [address] [place] [address] WBC corrected for nucl RBC Auto (Bld) [#/Vol] 6.0 E9/L Normal 4.0-11.0 [facility] Comment on above: Performed By: #### 2 [id number] #### [facility] [address] [place] [address] CHEMISTRYOrdered By: Elaine Reinoso on 08-10-2024 Albumin DL <= 20 mg/L (U) [Mass/Vol] mg/dL Normal 0.0 - 1.9 mg/dL [facility] Albumin/Creatinine DL <= 20 mg/L (U) [Mass ratio] NOT CALCULATED Invalid Interpretation Code 0.0 - 30.0 [facility] Comment on above: Interpretive Data: 3 0-300 mg/g Cr indicates an increased risk for diabetic nephropathy. >300 mg/g Cr is consistent with clinical nephropathy. U Creatinine 53.7 mg/dL Invalid Interpretation Code [facility] CHEMISTRYOrdered By: SYSTEM SYSTEM on 08-10-2024 Albumin [Mass/Vol] 4.1 g/dL Normal 3.3 - 5.0 gm/dL R emisol Chem Albumin/Globulin [Mass ratio] 2.0 {ratio} Normal 1.1 - 2.2 [facility] ALP [Catalytic activity/Vol] 66 [iU]/d Normal 21 - 98 Int._Unit/L [facility] ALT No additional P-5'-P [Catalytic activity/Vol] 51 [iU]/d High 6 - 46 Int._Unit/L [facility] Anion gap [Moles/Vol] 11 mmol/L Normal 6 - 16 mEq/L R emisol Chem AST [Catalytic activity/Vol] 32 [iU]/d Normal 5 - 43 Int._Unit/L [facility] Bilirubin [Mass/Vol] 0.5 mg/dL Normal 0.0 - 1.1 mg/dL [facility] Calcium [Mass/Vol] 9.2 mg/dL Normal 8.9 - 11. 1 mg/dL [facility] Chloride [Moles/Vol] 102 mmol/L Normal 101 - 1 11 mmol/L [facility] Cholesterol [Mass/Vol] 159 mg/dL Normal 120 - 200 mg/dL Remisol Chem Cholesterol in HDL [Mass/Vol] 43 mg/dL Invalid Interpretation Code Rem[facility] Chem Comment on above: Result Comment: '>= 60 LOW RISK' '<= 40 HIGH RISK' Cholesterol in LDL [Mass/Vol] 103 mg/dL Normal <=129mg/dL [facility] Chem Cholesterol in VLDL [Mass/Vol] 39 mg/dL Normal 7 - 40 mg/dL [facility] CO2 [Moles/Vol] 24 mmol/L Normal 21 - 31 mmol/L Remis ol Chem Creatinine [Mass/Vol] 0.6 mg/dL Normal 0.5 - 1.3 mg/d L Rem[facility] Chem GFR/1.73 sq M.predicted MDRD (S/P/Bld) [Vol rate/Area] 115 mL/min/1.73 m2 Normal >=59mL/min/1.73 m2 [facility] Chem Globulin (S) [Mass/Vol] 2.1 g/dL Normal 1.4 - 4.0 gm/dL [facility] Glucose [Mass/Vol] 349 mg/dL High 55 - 199 mg/dL Re misol Chem Potassium [Moles/Vol] 4.4 mmol/L Normal 3.5 - 5.3 mmol/L [facility] Chem Protein [Mass/Vol] 6.2 g/dL Normal 6.0 - 7.8 gm/dL R emisol Chem Sodium [Moles/Vol] 133 mmol/L Low 135 - 145 mmol/L [facility] Triglyceride [Mass/Vol] 195 mg/dL High <=149mg/dL [facility] Chem Urea nitrogen [Mass/Vol] 13 mg/dL Normal 5 - 21 mg/dL [facility] Chem Urea nitrogen/Creatinine [Mass ratio] 22 mg/mg High 10 - 20 [facility] Chem CHEMISTRYOrdered By: Rhea Carlisle on 08-10-2024 HbA1c (Bld) [Mass fraction] 11.8 % High <=5.9% [facility] ChemAutoSS CMPon 08-10-2024 Albumin [Mass/Vol] 4.1 g/dL Normal 3.3-5.0 [facility] Comment on above: Performed By: #### 2 [id number] #### [facility] [address] [place] [address] Albumin/Globulin (S) [Mass conc ratio] 2.0 Normal 1.1-2.2 [facility] Comment on above: Performed By: #### 2 [id number] #### [facility] [address] [place] [address] ALP [Catalytic activity/Vol] 66 Int._Unit/L Normal 21-98 [facility] Comment on above: Performed By: #### 2 [id number] #### [facility] [address] [place] [address] ALT No additional P-5'-P [Catalytic activity/Vol] 51 Int._Unit/L High 6-46 [facility] Comment on above: Performed By: #### 2 [id number] #### [facility] [address] [place] [address] Anion gap [Moles/Vol] 11 mmol/L Normal 6-16 [facility] Comment on above: Performed By: #### 2 [id number] #### [facility] [address] [place] [address] AST [Catalytic activity/Vol] 32 Int._Unit/L Normal 5-43 [facility] Comment on above: Performed By: #### 2 [id number] #### [facility] [address] [place] [address] Bilirubin [Mass/Vol] 0.5 mg/dL Normal 0.0-1.1 [facility] Comment on above: Performed By: #### 2 [id number] #### [facility] [address] [place] [address] Calcium [Mass/Vol] 9.2 mg/dL Normal 8.9-11.1 [facility] Comment on above: Performed By: #### 2 [id number] #### [facility] [address] [place] [address] Chloride [Moles/Vol] 102 mmol/L Normal 101-111 [facility] Comment on above: Performed By: #### 2 [id number] #### [facility] [address] [place] [address] CO2 [Moles/Vol] 24 mmol/L Normal 21-31 [facility] Comment on above: Performed By: #### 2 [id number] #### [facility] [address] [place] [address] Creatinine [Mass/Vol] 0.6 mg/dL Normal 0.5-1.3 [facility] Comment on above: Performed By: #### 2 [id number] #### [facility] [address] [place] [address] Globulin (S) [Mass/Vol] 2.1 g/dL Normal 1.4-4.0 [facility] Comment on above: Performed By: #### 2 [id number] #### [facility] [address] [place] [address] Glucose [Mass/Vol] 349 mg/dL High 55-199 [facility] Comment on above: Performed By: #### 2 [id number] #### [facility] [address] [place] [address] Potassium [Moles/Vol] 4.4 mmol/L Normal 3.5-5.3 [facility] Comment on above: Performed By: #### 2 [id number] #### [facility] [address] [place] [address] Protein [Mass/Vol] 6.2 g/dL Normal 6.0-7.8 [facility] Comment on above: Performed By: #### 2 [id number] #### [facility] [address] [place] [address] Sodium [Moles/Vol] 133 mmol/L Low 135-145 [facility] Comment on above: Performed By: #### 2 [id number] #### [facility] [address] [place] [address] Urea nitrogen [Mass/Vol] 13 mg/dL Normal 5-21 [facility] Comment on above: Performed By: #### 2 [id number] #### [facility] [address] [place] [address] Urea nitrogen/Creatinine [Mass ratio] 22 No Units High 10-20 [facility] Comment on above: Performed By: #### 2 [id number] #### [facility] [address] [place] [address] Family Medicine Office/Clini c Noteon 08-10-2024 Family Medicine Office/Clinic Note Family Medicine Office/Clinic Note Chief Complaint Seeking guidance on glucose monitoring and management HPI Staff 6m follow up Patient is here for follow up on Diabetes. How often are you checking your blood sugars? What are your average readings? _ Foot Exam: Eye Exam: 06/22/2024 Last A1c: February 10 2024 (6.4) GCM sample provided at [facility]. is doing this with no problems Questions/Concerns: refills for Trulicity History of Present Illness - The patient is a 39-year-old female presenting with type 2 diabetes management issues. - Reports glucose levels above 250 mg/dL and 20-point discrepancies in measurements between devices. - Previous difficulty maintaining the device use attributed to equipment limitations. - Expresses commitment to glucose monitoring without frequent finger-pricking. - GERD symptoms exacerbated by cinnamon use; managed primarily through dietary adjustments. - Dietary attempts at glycemic response management noted without consistent results. Review of Systems PHQ Score Initial Depression Screen Score: 0 SCORE Physical Exam Vitals & Measurements T: 36.3 ???C(Oral) HR: 90(Peripheral) RR: 20 BP: 118/82 SpO2: 100% HT: 64 in HT: 162.5 cm WT: 205.471 lb WT: 93.2 kg BMI: 35.29 General: alert, no acute distress ENMT: oral mucosa moist Cardiovascular: Regular rate and rhythm, normal peripheral perfusion Respiratory: Lungs clear to auscultation, respirations non labored Extremities: no deformity, no trauma Neurological: oriented x 4, level of consciousness appropriate for age, CN II-XII intact, motor strength equal & normal bilaterally, speech normal Abdomen: Soft, Non-tender, Non-distended, + Bowel sounds Assessment/Plan 1. Excessive dietary caloric intake (R63.2: Polyphagia) - Diet and exercise advised - Follow up PRN. Ordered: Misc Prescription, Dexcom G7 Flash Glucose Monitoring 15 Day System, See Instructions, 6 EA, 1, Dexcome G7 Flash Glucose Monitoring 15 Day System Please change every 15 days., [facility] #[id number], Supply, 162.5, cm, 08/10/24 7:11:00 EDT, Height/Length Dosing, 93.2, kg,... CBC w/ Auto Diff Comprehensive Metabolic Panel HgbA1c Lipid Panel Urine Microalbumin/Creati nine Ratio 2. Former smoker (Z87.891: Personal history of nicotine dependence) - Please continue to not smoke. Ordered: Misc Prescription, Dexcom G7 Flash Glucose Monitoring 15 Day System, See Instructions, 6 EA, 1, Dexcome G7 Flash Glucose Monitoring 15 Day System Please change every 15 days., [id number], Supply, 162.5, cm, 08/10/24 7:11:00 EDT, Height/Length Dosing, 93.2, kg,... CBC w/ Auto Diff Comprehensive Metabolic Panel HgbA1c Lipid Panel Urine Microalbumin/Creati nine Ratio 3. BMI 35.0-35.9,adult (Z68.35: Body mass index [BMI] 35.0-35.9, adult) - BMI education added to the chart. Ordered: Misc Prescription, Dexcom G7 Flash Glucose Monitoring 15 Day System, See Instructions, 6 EA, 1, Dexcome G7 Flash Glucose Monitoring 15 Day System Please change every 15 days., [id number], Supply, 162.5, cm, 08/10/24 7:11:00 EDT, Height/Length Dosing, 93.2, kg,... CBC w/ Auto Diff Comprehensive Metabolic Panel HgbA1c Lipid Panel Urine Microalbumin/Creati nine Ratio 4. Class 2 severe obesity due to excess calories with serious comorbidity and body mass index (BMI) of 35.0 to 35.9 in adult (E66.812: Obesity, class 2) - Dietary counseling conducted. Monitor food glycemic response. Ordered: Misc Prescription, Dexcom G7 Flash Glucose Monitoring 15 Day System, See Instructions, 6 EA, 1, Dexcome G7 Flash Glucose Monitoring 15 Day System Please change every 15 days., [id number], Supply, 162.5, cm, 08/10/24 7:11:00 EDT, Height/Length Dosing, 93.2, kg,... CBC w/ Auto Diff Comprehensive Metabolic Panel HgbA1c Lipid Panel Urine Microalbumin/Creati nine Ratio 5. Controlled type 2 diabetes mellitus without complication, without long-term current use of insulin (E11.9: Type 2 diabetes mellitus without complications) - Continuous glucose device ordered. Labs to be done. - Will check A1c today. - Follow up in 3 months Ordered: Misc Prescription, Dexcom G7 Flash Glucose Monitoring 15 Day System, See Instructions, 6 EA, 1, Dexcome G7 Flash Glucose Monitoring 15 Day System Please change every 15 days., [id number], Supply, 162.5, cm, 08/10/24 7:11:00 EDT, Height/Length Dosing, 93.2, kg,... CBC w/ Auto Diff Comprehensive Metabolic Panel HgbA1c Lipid Panel Urine Microalbumin/Creati nine Ratio 6. GERD without esophagitis (K21.9: Gastro-esophageal reflux disease without esophagitis) - Diet adjustments - Continue on PPI - Well controlled. Ordered: Misc Prescription, Dexcom G7 Flash Glucose Monitoring 15 Day System, See Instructions, 6 EA, 1, Dexcome G7 Flash Glucose Monitoring 15 Day System Please change every 15 days., [id number], Supply, 162.5, cm, 08/10/24 7:11:00 EDT, Height/Length Dosing, 93.2, kg,... CBC w/ Auto Diff C (more content not included)... Normal [facility] Comment on above: Result Comment: Elec tronically Signed By: Siva ALMAZAN, Ramesh Landrybr\Date and Time Signed: 08/10/24 07:43 EDT HEMATOLOGYOrdered By: SYSTEM SYSTEM on 08-10-2024 Basophils/100 WBC (Bld) 0.8 % Normal 0.0 - 2.0 % Remisol Heme Basophils/Leukocytes Auto (Bld) [Pure # fraction] 0.1 E9/L Normal 0.0 - 0.2 E9/L [facility] Eosinophils (Bld) [#/Vol] 0.1 E9/L Normal 0.0 - 0.5 E9/L [facility] Eosinophils/100 WBC (Bld) 2.2 % Normal 0.0 - 8.0 % [facility] Erythrocyte distribution width (RBC) [Ratio] 13.4 % Normal 10.9 - 14.2 % [facility] Hematocrit (Bld) [Volume fraction] 43.5 % Normal 34.0 - 46.0 % [facility]e Hemoglobin (Bld) [Mass/Vol] 15.0 g/dL Normal 12.0 - 16.0 gm/dL [facility] Lymphocytes (Bld) [#/Vol] 1.9 E9/L Normal 1.0 - 4.0 E9/L [facility] Lymphocytes/100 WBC (Bld) 32.4 % Normal 14.0 - 50.0 % [facility]e MCH (RBC) [Entitic mass] 30.4 pg Normal 27.0 - 34.0 pg Remisol Heme MCHC (RBC) [Mass/Vol] 34.5 g/dL Normal 31.4 - 36.0 gm/dL [facility]e MCV (RBC) [Entitic vol] 88.2 fL Normal 80.0 - 100.0 fL [facility]e Monocytes (Bld) [#/Vol] 0.5 E9/L Normal 0.2 - 1.0 E9/L [facility] Monocytes/100 WBC (Bld) 7.7 % Normal 4.0 - 14.0 % [facility] Neutrophils (Bld) [#/Vol] 3.4 E9/L Normal 2.0 - 7.5 E9/L [facility] Neutrophils/100 WBC (Bld) 56.9 % Normal 36.0 - 75.0 % [facility] Platelet 415.0 E9/L Normal 150.0 - 500.0 E9/L [facility] Platelet mean volume (Bld) [Entitic vol] 6.8 fL Normal 6.4 - 10.8 fL [facility] Heme RBC (Bld) [#/Vol] 4.9 E12/L Normal 4.3 - 5.9 E12/L Re misol Heme WBC corrected for nucl RBC Auto (Bld) [#/Vol] 6.0 E9/L Normal 4.0 - 11.0 E9/L Rem[facility] Heme [id number] 08-10-2024 HbA1c (Bld) [Mass fraction] 11.8 % High <=5.9 [facility] Comment on above: Performed By: #### 7 [id number] #### [facility] [address] [place] [address] Lipid Panelon 08-10-2024 Cholesterol [Mass/Vol] 159 mg/dL Normal 120-200 [facility] Comment on above: Performed By: #### 2 [id number] #### [facility] [address] [place] [address] Cholesterol in HDL [Mass/Vol] 43 mg/dL Invalid Interpretation Code [facility] Comment on above: Result Comment: '>= 60 LOW RISK' '<= 40 HIGH RISK' Performed By: #### 2 [id number] #### [facility] [address] [place] [address] Cholesterol in LDL [Mass/Vol] 103 mg/dL Normal <=129 [facility] Comment on above: Performed By: #### 2 [id number] #### [facility] [address] [place] [address] Cholesterol in VLDL [Mass/Vol] 39 mg/dL Normal 7-40 [facility] Comment on above: Performed By: #### 2 [id number] #### [facility] [address] [place] [address] Triglyceride [Mass/Vol] 195 mg/dL High <=149 [facility] Comment on above: Performed By: #### 2 [id number] #### [facility] [address] [place] [address] U MA/Cr Ratioon 08-10-2024 Albumin DL <= 20 mg/L (U) [Mass/Vol] mg/dL Normal 0.0-1.9 [facility] Comment on above: Performed By: #### 1 [id number] #### [facility] [address] [place] [address] Albumin/Creatinine DL <= 20 mg/L (U) [Mass ratio] NOT CALCULATED Invalid Interpretation Code .0-30.0 [facility] Comment on above: Result Comment: 30-3 00 mg/g Cr indicates an increased risk for diabetic nephropathy. >300 mg/g Cr is consistent with clinical nephropathy. Performed By: #### 1 [id number] #### [facility] [address] [place] [address] U Creatinine 53.7 mg/dL Invalid Interpretation Code [facility] Comment on above: Performed By: #### 1 [id number] #### [facility] [address] [place] [address] eGFRon 08-10-2024 GFR/1.73 sq M.predicted MDRD (S/P/Bld) [Vol rate/Area] 115 mL/min/1.73 m2 Normal >=59 [facility] Comment on above: Performed By: #### 1 [id number] #### [facility] [address] [place] [address] Glucose (Bld) [Mass/Vol]on 1 2-16-2024 Glucose Blood, POC 271 mg/dL [facility] Ambulatory Visit Summaryon 1 04-11-2023 Ambulatory Visit Summary Ambulatory Visit Summary SE WOLF :1985 Visit Date:02/10/2024 Ambulatory Visit Instructions Your Diagnosis Controlled type 2 diabetes mellitus without complication, without long-term current use of insulin BMI 35.0-35.9,adult Former smoker Gastro-esophageal reflux disease without esophagitis Unspecified asthma, uncomplicated Encounter for immunization Your Care Team Attending Physician - Ramesh Paniagua MD Primary Care Physician - Ramesh Paniagua MD This Is Your Medications List atorvastatin (atorvastatin 20 mg Tab) cetirizine (cetirizine 10 mg Tab) dulaglutide (dulaglutide 4.5 mg/0.5 mL subcutaneous solution) metformin (MetFORMIN (Eqv-Glucophage XR) 500 mg oral tablet, extended release) omeprazole (omeprazole 40 mg Cap-DR) Procedures Performed Bilateral tubal ligation, Hysterectomy. Discharge Vitals Temperature (Temporal Artery) 36.7 ???C Heart Rate (Peripheral) 72 Respiratory Rate 16 Blood Pressure 120/78 Height 162.5 cm Height 64 in Weight 92.5 kg Weight 203.927 lb BMI 35.03 What to do next Scheduled Follow-Up Appointments Friday. 2024 7:15 AM EDT With: Ramesh Paniagua MD Where: [place] [id number]- Medications What How Much When Instructions Unchanged atorvastatin (atorvastatin 20 mg Tab) TAKE 1 TABLET BY MOUTH EVERY DAY Unchanged cetirizine (cetirizine 10 mg Tab) See instructions TAKE 1 TABLET BY MOUTH EVERY DAY Unchanged dulaglutide (dulaglutide 4.5 mg/ 0.5 mL subcutaneous solution) 4.5 Milligram Subcutaneous Every week Unchanged metformin (MetFORMIN (Eqv-Glucophage XR) 500 mg oral tablet, extended release) See instructions TAKE 2 TABLETS BY MOUTH TWICE A DAY Unchanged omeprazole (omeprazole 40 mg Cap-DR) See instructions TAKE 1 CAPSULE BY MOUTH EVERY DAY Medications and Immunizations Administered Given Fluzone TIV PF , 0.5 mL, IntraMuscular. For: Controlled type 2 diabetes mellitus without complication, without long-term current use of insulin, BMI 35.0-35.9,adult, Former smoker influenza virus vaccine, inactivated, IntraMuscular Allergies No Known Allergies Problems Ongoing - Any problem that you are currently receiving treatment for. Controlled type 2 diabetes mellitus without complication, without long-term current use of insulin Excessive dietary caloric intake GERD without esophagitis Grief reaction Mild intermittent asthma without complication Mixed hyperlipidemia Seasonal allergies Stress and adjustment reaction Patient Survey You may receive a survey via text or e-mail asking about your office visit. Please share your experience with us by completing your survey. We appreciate your feedback and thank you for choosing us for your care. Normal [facility] Family Medicine Office/Clini c Noteon 02-10-2024 Family Medicine Office/Clinic Note Family Medicine Office/Clinic Note HPI Staff Se is a 38 year old female presenting for 3 month follow up DM Do you have any of the following symptoms? Foot Exam: none Eye Exam: Apr 2023 Last A1C: Hgb A1C %: 11 % High (10/22/23 09:40:00) Hgb A1c POC: 9.9 % (06/05/23 12:05:00) Statin: atorvastatin 20mg questions/concerns: would like a flu shot today Needs metformin and trulicity refilled wants the 4.5 hard to get hopes in stock Sees Dr Oh in Dec. History of Present Illness The patient is a 38-year-old female presenting with concerns regarding medication management for controlled type 2 diabetes mellitus without complication. She reports having issues obtaining her diabetes medication from the pharmacy, citing difficulties with insurance and medication distribution. The patient states that the [facility] pharmacy only provides one box of her medication at a time, and she is unsure about her mail-order pharmacy options through her insurance. She recalls previous advice to explore mail away options but has not resolved this. Additionally, she mentioned managing her blood sugar levels, which she reports as approximately 125 mg/dL postprandially and about 100 mg/dL upon waking. The patient is currently on Trulicity and metformin and indicates she has one dose left of the 4.5 mg Trulicity. The patient's history includes former smoker status, controlled type 2 diabetes without complications, asthma, and acid reflux, all of which are reportedly stable at this time. Review of Systems PHQ Score Initial Depression Screen Score: 0 SCORE Physical Exam Vitals & Measurements T: 36.7 ???C(Temporal Artery) HR: 72(Peripheral) RR: 16 BP: 120/78 SpO2: 99% HT: 64 in HT: 162.5 cm WT: 92.5 kg WT: 203.927 lb BMI: 35.03 General: alert, no acute distress ENMT: oral mucosa moist Cardiovascular: Regular rate and rhythm, normal peripheral perfusion Respiratory: Lungs clear to auscultation, respirations non labored Extremities: no deformity, no trauma Neurological: oriented x 4, level of consciousness appropriate for age, CN II-XII intact, motor strength equal & normal bilaterally, speech normal Abdomen: Soft, Non-tender, Non-distended, + Bowel sounds Assessment/Plan 1. Controlled type 2 diabetes mellitus without complication, without long-term current use of insulin (E11.9: Type 2 diabetes mellitus without complications) Continued management with current medications, Trulicity and metformin. Discussed non-invasive glucose monitoring option; provided sample for demonstration. Plan to monitor A1c levels regularly and suggest contacting the insurance provider regarding mail-order pharmacy options. A1c today is 6.4. Patient is down 5 pounds. GCM sample given today. Ordered: influenza virus vaccine, inactivated, 0.5 mL, Susp-Inj, IntraMuscular, Once, Stop date 02/10/24 7:00:00 EST, Routine, Start date 02/10/24 7:00:00 EST A1c POC 01828 2. BMI 35.0-35.9,adult (Z68.35: Body mass index [BMI] 35.0-35.9, adult) Entry Level Account Representative about lifestyle modifications and weight management. Monitor BMI at regular intervals. Discuss diet, exercise plans, and set attainable goals. Ordered: influenza virus vaccine, inactivated, 0.5 mL, Susp-Inj, IntraMuscular, Once, Stop date 02/10/24 7:00:00 EST, Routine, Start date 02/10/24 7:00:00 EST A1c POC 35019 3. Former smoker (Z87.891: Personal history of nicotine dependence) Continued support to maintain smoking cessation. Discussed benefits of sustained cessation on overall health and disease management. Ordered: influenza virus vaccine, inactivated, 0.5 mL, Susp-Inj, IntraMuscular, Once, Stop date 02/10/24 7:00:00 EST, Routine, Start date 02/10/24 7:00:00 EST A1c POC 49446 4. Gastro-esophageal reflux disease without esophagitis (K21.9) Continue current management; patient reports no current issues. Reinforce lifestyle modifications that include dietary adjustments and medications as needed. Ordered: A1c POC 42573 5. Unspecified asthma, uncomplicated (J45.909) Asthma currently stable with patient denying symptoms. Reinforce adherence to preventer medications and rescue inhalers as required. Continue regular monitoring and review of asthma action plan. Ordered: A1c POC 19214 Encounter for immunization (Z23: Encounter for immunization) Reviewed vaccination status; ensure all immunizations are up to date. Scheduled to update any pending vaccinations per eligibility and guidelines. Ordered: FIRST VACCINE w/o Entry Level Account Representative Admin Charge [id number] Orders: atorvastatin, 20 mg = 1 tab(s), Oral, Daily, # 90 tab(s), Refills(s) 1, Pharmacy: [facility]/pharmacy #[id number], 162.5, cm, 02/10/24 6:50:00 EST, Height/Length Dosing, 92.5, kg, 02/10/24 6:50:00 EST, Weight Dosing dulaglutide, 4.5 mg, SubCutaneous, qWeek, # 12 EA, Refills(s) 0, Pharmacy: [facility]/pharmacy #[id number], 162.5, cm, 02/10/24 6:50:00 EST, Height/Length Dosing, 92.5, kg, 02/10/24 6:50:00 EST, Weight Dosing metformin, See Instructions, TAKE 2 TABLETS BY MOUTH TWICE A DA (more content not included)... Normal [facility] Comment on above: Result Comment: Elec tronically Signed By: Siva ALMAZAN, Ramesh Flores.br\Date and Time Signed: 02/10/24 07:27 EST IGP,APTIMA HPV,AGE GDLNon AGE GDLN ACOG TESTING Note . [facility] Comment on above: TESTS RESULT FLAG U NITS REF RANGE LAB Clinician Provided Cytology Information Source.............Vagina Other.............. No. of containers..01 ThinPrep Vial Age Raza Schaefer... 28 FLAG LEGEND: L-Low Normal,H-High Normal,LL-Alert Low,HH-Alert High <-Panic Low,>-Panic High,A-Abnormal,AA-Critical Abnormal Performed at: 01 =[address] [address] Ashwini Calderon MD, HPV APTIMA Negative Negative [facility] Comment on above: This nucleic acid am plification test detects fourteen high- risk HPV types (16,18,31,33,35,39,45,51,52,56,58,59,66,68) without differentiation. Performed at: =[address] [id number] Top Screw: Ashwini Calderon MD, Phone: [phone] Performed at: [address] [id number] Top [employer]w: Ashwini Calderon MD, Phone: [phone] IGP, APTIMA HPV, RFX 16/18,45 Note . [facility] Comment on above: TESTS RESULT FLAG UN ITS REF RANGE LAB DIAGNOSIS: 02 NEGATIVE FOR INTRAEPITHELIAL LESION OR MALIGNANCY. Specimen adequacy: 02 Satisfactory for evaluation. Performed by: 02 Norah Tse, Drawing Machine Operator (ASCP) . 02 Note: Note 02 The Pap smear is a screening test designed to aid in the detection of premalignant and malignant conditions of the uterine cervix. It is not a diagnostic procedure and should not be used as the sole means of detecting cervical cancer. Both false-positive and false-negative reports do occur. Test Methodology: Note 02 This liquid based ThinPrep(R) pap test was screened with the use of an image guided system. HPV Genotype Reflex Note 02 Criteria not met, HPV Genotype not performed. FLAG LEGEND: L-Low Normal,H-High Normal,LL-Alert Low,HH-Alert High <-Panic Low,>-Panic High,A-Abnormal,AA-Critical Abnormal Performed at: [address] [phone] Ashwini Calderon MD, SPATULA-ALONE VAGINA [facility] Ambulatory Visit Summaryon 0 10-22-2023 Ambulatory Visit Summary Ambulatory Visit Summary SE WOLF :1985 Visit Date:10/22/2023 Ambulatory Visit Instructions Your Diagnosis Uncontrolled diabetes mellitus with hypoglycemia without coma Former smoker BMI 35.0-35.9,adult Your Care Team Attending Physician - HAKEEM SOLIMAN CNP Primary Care Physician - Ramesh Paniagua MD This Is Your Medications List atorvastatin (atorvastatin 20 mg Tab) cetirizine (cetirizine 10 mg Tab) metformin (MetFORMIN (Eqv-Glucophage XR) 500 mg oral tablet, extended release) omeprazole (omeprazole 40 mg Cap-DR) Procedures Performed Bilateral tubal ligation, Hysterectomy. Discharge Vitals Temperature (Temporal Artery) 36.4 ?C Heart Rate (Peripheral) 84 Respiratory Rate 20 Blood Pressure 120/22 Height 162.5 cm Height 64 in Weight 94.8 kg Weight 208.56 lb BMI 35.9 What to do next Scheduled Follow-Up Appointments Friday 7:00 AM EST With: Siva ALMAZAN, Ramesh Yu Where: [place] [id number]- Medications What How Much When Instructions Unchanged atorvastatin (atorvastatin 20 mg Tab) TAKE 1 TABLET BY MOUTH EVERY DAY Unchanged cetirizine (cetirizine 10 mg Tab) See instructions TAKE 1 TABLET BY MOUTH EVERY DAY Unchanged metformin (MetFORMIN (Eqv-Glucophage XR) 500 mg oral tablet, extended release) See instructions TAKE 2 TABLETS BY MOUTH TWICE A DAY Unchanged omeprazole (omeprazole 40 mg Cap-DR) See instructions TAKE 1 CAPSULE BY MOUTH EVERY DAY Allergies No Known Allergies Problems Ongoing - Any problem that you are currently receiving treatment for. Controlled type 2 diabetes mellitus without complication, without long-term current use of insulin Excessive dietary caloric intake GERD without esophagitis Grief reaction Mild intermittent asthma without complication Mixed hyperlipidemia Seasonal allergies Patient Survey You may receive a survey via text or e-mail asking about your office visit. Please share your experience with us by completing your survey. We appreciate your feedback and thank you for choosing us for your care. Normal [facility] CHEMISTRYOrdered By: Jeremiah castellanos on 10-22-2023 HbA1c (Bld) [Mass fraction] 11.0 % High <=5.9% [facility] ChemAutoSS Family Medicine Office/Clini c Noteon 10-22-2023 Family Medicine Office/Clinic Note Family Medicine Office/Clinic Note HPI Staff Se is a 38 year old female presenting for 3 month follow up DM Do you have any of the following symptoms? Foot Exam: MOHSEN she thinks Eye Exam: April 2023 Hgb A1C %: 10.2 % High (05/29/23 08:33:00) Hgb A1c POC: 9.9 % (06/05/23 12:05:00) Statin: none [facility], she has been having problems with this no (4.5 dose) Pharmacy is having problems getting in, she has been taking cinnamon A1C was drawn today IO History of Present Illness 38 [address] patient of Dr. Paniagua, presents today in f/u for known diabetes. She reports she has not been able to get the Trulicity 4.5 mg and has only been taking the Trulicity 1.5 mg. She has an appointment with Dr. Oh on 11/10/2023. Her last HgbA1C was 7.7% and this was when she was actually taking the Trulicity 4.5mg. She states she has been under a great deal of stress lately because her job notified her she will need to work 12 hours shifts 6 days a week and her vacation time was denied. She reports she was told by her employer to bring in a doctor's note and they would let her off. She states she does have a counselor through [facility] but that individual can not place her off work. She states she has been crying uncontrollably at home and at work. She would prefer not to be on medication for the stress and anxiety and believes time off work will help. Review of Systems PHQ Score Initial Depression Screen Score: 0 SCORE Constitutional: no fever, no chills, no sweats, no weakness Skin: no Jaundice, no rash, no lesions, nopetechiae Respiratory: no shortness of breath, no cough, no orthopnea, no wheezing Cardiovascular: no chest pain, no palpitations, no edema Musculoskeletal: no back pain, no trauma Neurologic: no headache, no dizziness, no numbness, no weakness Psychiatric: no sleeping problems, moderate irritability, moderate mood swings/depression. Additional ROS info: Except as noted in the above Review of Systems and in the History of Present Illness all other systems have been reviewed and are negative or noncontributory. Physical Exam Vitals & Measurements T: 36.4 ?C(Temporal Artery) HR: 84(Peripheral) RR: 20 BP: 120/22 SpO2: 96% HT: 64 in HT: 162.5 cm WT: 94.8 kg WT: 208.56 lb BMI: 35.9 General: alert, no acute distress Skin: warm, dry Head: no trauma, normocephalic Neck: Trachea midline, no adenopathy, no tenderness Eye: normal conjunctiva, sclera clear Cardiovascular: regular rate and rhythm, normal peripheral perfusion Respiratory: Lungs CTA, respirations non labored Back: No tenderness, Normal ROM, Normal alignment. Extremities: no deformity, no trauma Neurological: oriented x 4, LOC appropriate for age speech normal Psychiatric: cooperative, affect appropriate for age, normal judgement, normal psychiatric thoughts. Assessment/Plan 1. Uncontrolled diabetes mellitus with hypoglycemia without coma (E11.649: Type 2 diabetes mellitus with hypoglycemia without coma) Encouraged to monitor blood sugar daily, log, and bring to next appointment metFORMIN 500 mg XR take two tablets po BID Encourage low carb diet and daily exercise Encouraged to keep appointment as scheduled with Dr. Oh f/u in 3 months Ordered: dulaglutide, 3 mg, SubCutaneous, qWeek, # 2 mL, Refills(s) 1, Pharmacy: [facility]/pharmacy #[id number], 162.5, cm, 10/22/23 8:59:00 EDT, Height/Length Dosing, 94.8, kg, 10/22/23 8:59:00 EDT, Weight Dosing HgbA1c Lab Specimen Collect [id number] 2. Stress and adjustment reaction (F43.29: Adjustment disorder with other symptoms) Encouraged to continue with counselor at [facility] Note provider for employer for patient to be off work from -11/10/2023 Encouraged to f/u with pcp if she decided she would like to try medication to help manage her stress and anxiety Ordered: Lab Specimen Collect [id number] 3. Former smoker (Z87.891: Personal history of nicotine dependence) Encouraged to continue as a non-smoker Ordered: Lab Specimen Collect [id number] 4. BMI 35.0-35.9,adult (Z68.35: Body mass index [BMI] 35.0-35.9, adult) The standard range for ages 18 and older is >=18.5 and < 25 kg/m2. Your BMI today was above this range, this falls in the overweight to obese category and there are medical benefits to weight loss. We can offer counselling, referral, and/or medical support in addressing this problem. Your BMI and weight management will be followed at subsequent visits. Ordered: Lab Specimen Collect [id number] Follow-up No qualifying data available Patient Education Type 2 Diabetes Mellitus, Diagnosis, Adult, Adyo-mn-Ajlw Adjustment Disorder, Adult Problem List/Past Medical History Ongoing Controlled type 2 diabetes mellitus without complication, without long-term current use of insulin Excessive dietary caloric intake GERD without esophagitis Grief reaction Mild intermittent asthma without complication Mixed hyperlipidemia Seasonal allergies Stress and adju (more content not included)... Normal [facility] Comment on above: Result Comment: Elec tronically Signed By: HAKEEM SOLIMAN CNP\adrienne\Date and Time Signed: 10/22/23 14:52 EDT [id number] 10-22-2023 HbA1c (Bld) [Mass fraction] 11.0 % High <=5.9 [facility] Comment on above: Performed By: #### [id number] #### [facility] [address] [place] [address] Provider Letteron 10-22-2023 Provider Letter Provider Letter October 22, [address] [place] [id number] : 1985 To Whom It May Concern, Please excuse above patient from work due to anxiety and depression. Date of Illness: From: _10-22-23 To: _11-10-23 May Return to Work On: 11-11-23 Restrictions: _ Comments: _ Sincerely, [place] [address] [facility] Outside Mammographyon 2023 Outside Mammography [id number] [facility] Ambulatory Visit Summaryon 0 07-24-2023 Ambulatory Visit Summary SE WOLF :1985 Visit Date:07/24/2023 Ambulatory Visit Instructions Your Diagnosis Controlled type 2 diabetes mellitus without complication, without long-term current use of insulin BMI 35.0-35.9,adult Class 1 obesity due to excess calories in adult Former smoker GERD without esophagitis Seasonal allergies Your Care Team Attending Physician - Ramesh Paniagua MD Primary Care Physician - Ramesh Paniagua MD This Is Your Medications List dulaglutide (Trulicity Pen 4.5 mg/0.5 mL subcutaneous solution) Contact prescribing physician if questions or concerns cetirizine (cetirizine 10 mg Tab) metformin (Glucophage XR 500 mg Tab-ER) omeprazole (omeprazole 40 mg Cap-DR) Procedures Performed Bilateral tubal ligation, Hysterectomy. Discharge Vitals Temperature (Temporal Artery) 36.7 ?C Heart Rate (Peripheral) 92 Respiratory Rate 16 Blood Pressure 110/72 Height 162.5 cm Height 64 in Weight 93.4 kg Weight 205.48 lb BMI 35.37 What to do next Scheduled Follow-Up Appointments 2023 7:15 AM EDT With: Siva ALMAZAN, Ramesh Yu Where: [facility] Normal [facility] Medicine Office/Clini c Noteon 07-24-2023 Family Medicine Office/Clinic Note HPI Staff Se is a 38 year old female presenting for 3 month follow up DM Do you have any of the following symptoms? Foot Exam: none Eye Exam: 05/12/23 Last A1C: Hgb A1C %: 10.2 % High (05/29/23 08:33:00) Hgb A1c POC: 9.9 % (06/05/23 12:05:00) Recent A1C 7.7% end June in Dr Oh's office Statin: none questions/concerns: got a magnesium lavendar cream off [employer] and been using a few weeks supposed to help with cortisol and bd sugars. History of Present Illness - Here for follow up. - Please see staff HPI Review of Systems PHQ Score Initial Depression Screen Score: 0 SCORE Physical Exam Vitals & Measurements T: 36.7 ?C(Temporal Artery) HR: 92(Peripheral) RR: 16 BP: 110/72 SpO2: 99% HT: 64 in HT: 162.5 cm WT: 93.4 kg WT: 205.48 lb BMI: 35.37 General: alert, no acute distress ENMT: oral mucosa moist, Cardiovascular: regular rate and rhythm, normal peripheral perfusion Respiratory: Lungs CTA, respirations non labored Extremities: no deformity, no trauma Neurological: oriented x 4, LOC appropriate for age, CN II-XII intact, motor strength equal & normal bilaterally, speech normal Abdomen: Soft, Nontender, Non-distended, + BS Assessment/Plan 1. Controlled type 2 diabetes mellitus without complication, without long-term current use of insulin (E11.9: Type 2 diabetes mellitus without complications) - Improved - Continue to see Endo - Reviewed meds - No issues at this time. - Discussed cinnamon as a way to improve BS - Diet and exercise is best. 2. BMI 35.0-35.9,adult (Z68.35: Body mass index [BMI] 35.0-35.9, adult) - BMI education given Ordered: azithromycin, 500 mg = 1 tab(s), Oral, Daily, # 3 tab(s), Refills(s) 0, Pharmacy: [facility]/pharmacy #[id number], 162.5, cm, 06/05/23 11:40:00 EDT, Height/Length Dosing, 92.8, kg, 06/05/23 11:40:00 EDT, Weight Dosing 3. Class 1 obesity due to excess calories in adult (E66.09: Other obesity due to excess calories) - Diet and exercise advised Ordered: azithromycin, 500 mg = 1 tab(s), Oral, Daily, # 3 tab(s), Refills(s) 0, Pharmacy: [facility]/pharmacy #[id number], 162.5, cm, 06/05/23 11:40:00 EDT, Height/Length Dosing, 92.8, kg, 06/05/23 11:40:00 EDT, Weight Dosing 4. Former smoker (Z87.891: Personal history of nicotine dependence) - Please stop smoking. 5. GERD without esophagitis (K21.9: Gastro-esophageal reflux disease without esophagitis) - Controlled - Continue on a PPI 6. Seasonal allergies (J30.2: Other seasonal allergic rhinitis) - Continue H2 karla - Stable - Continue as before. Orders: dulaglutide, 4.5 mg, SubCutaneous, qWeek, # 12 EA, Refills(s) 0, Pharmacy: [facility], 162.5, cm, 07/24/23 7:03:00 EDT, Height/Length Dosing, 93.4, kg, 07/24/23 7:03:00 EDT, Weight Dosing Follow-up No qualifying data available Problem List/Past Medical History Ongoing Controlled type 2 diabetes mellitus without complication, without long-term current use of insulin Excessive dietary caloric intake GERD without esophagitis Grief reaction Mild intermittent asthma without complication Mixed hyperlipidemia Seasonal allergies Historical No qualifying data Procedure/Surgical History Bilateral tubal ligation, Hysterectomy. Medications cetirizine 10 mg Tab, See Instructions Glucophage XR 500 mg Tab-ER, 1000 mg= 2 tab(s), Oral, BID, 1 refills omeprazole 40 mg Cap-DR, See Instructions Trulicity Pen 4.5 mg/0.5 mL subcutaneous solution, 4.5 mg, SubCutaneous, qWeek Allergies No Known Allergies Social History Alcohol Current, Beer, 04/28/2022 Substance Abuse Current, 04/28/2022 Tobacco Former smoker, quit more than 30 days ago Tobacco Use:. Never Smokeless Tobacco Use:. Cigarettes, 07/24/2023 Former smokeless tobacco user, quit more than 30 days ago Smokeless Tobacco Use:. Cigarettes, 04/28/2022 Family History Diabetes mellitus type 2: Father. Hyperlipidemia: Mother and Father. Hypertension: Mother and Father. Immunizations Vaccine Date Status Comments influenza virus vaccine, inactivated 01/16/2023 Given influenza virus vaccine, inactivated 12/29/2021 Recorded SARS-CoV-2 (COVID-19) mRNA-1273 vaccine 01/25/2021 Recorded influenza virus vaccine, inactivated 01/01/2021 Recorded SARS-CoV-2 (COVID-19) Ad26 vaccine 05/22/2020 Recorded 2022-09-26: TPV21 influenza virus vaccine, inactivated 12/22/2019 Recorded diphtheria/pertussi s, acel/tetanus adult 09/09/2019 Recorded influenza virus vaccine, inactivated 02/03/2017 Recorded influenza virus vaccine, inactivated 01/21/2014 Recorded Normal [facility] Comment on above: Result Comment: Elec tronically Signed By: Siva ALMAZAN, Ramesh Flores.br\Date and Time Signed: 07/24/23 07:19 EDT Provider Letteron 06-06-2023 Provider Letter June 06, [address] [place] [id number] : 1985 To Whom It May Concern, Please excuse above patient from work due to illness. Date of Illness: Sinusitis J32.9 From: _ 06-05-23 To: _ 06-08-23 May Return to Work On: 06-09-23 Restrictions: _ Comments: _NONE Sincerely, Family Medicine [address] [address] [facility] Ambulatory Visit Summaryon 0 06-05-2023 Ambulatory Visit Summary SE WOLF :1985 Visit Date:06/05/2023 Ambulatory Visit Instructions Your Diagnosis Sinusitis Controlled type 2 diabetes mellitus without complication, without long-term current use of insulin BMI 35.0-35.9,adult Class 1 obesity due to excess calories in adult Nonsmoker Your Care Team Attending Physician - Ramesh Paniagua MD Primary Care Physician - Ramesh Paniagua MD This Is Your Medications List azithromycin (Azithromycin 3 Day Dose Pack 500 mg oral tablet) Contact prescribing physician if questions or concerns cetirizine (cetirizine 10 mg Tab) dulaglutide (Trulicity Pen 4.5 mg/0.5 mL subcutaneous solution) metformin (Glucophage XR 500 mg Tab-ER) omeprazole (omeprazole 40 mg Cap-DR) Procedures Performed Bilateral tubal ligation, Hysterectomy. Discharge Vitals Temperature (Oral) 36.9 ?C Heart Rate (Peripheral) 96 Respiratory Rate 16 Blood Pressure 126/80 Height 162.5 cm Height 64 in Weight 92.80 kg Weight 204.16 lb BMI 35.14 What to do next Scheduled Follow-Up Appointments July. 2023 7:00 AM EDT With: Ramesh Paniagua MD Where: [facility] [place] Family Medicine Office/Clini c Noteon 06-05-2023 Family Medicine Office/Clinic Note HPI Staff Se is a 38 year old female presenting to discuss A1C results Also would like to discuss sinus pain/pressure, no fever, sinus headache, nasal congestion and nasal drainage and it's clear, feels the congestion in her chest that's draining down but no cough week ago tomorrow she started taking OTC sinus medicine and can't get rid of it, today she started with right ear pain. Been on 12 hour shifts all week and can't get any rest to get rid of it. Hgb A1C %: 10.2 % High (05/29/23 08:33:00) questions/concerns: needs her metformin refilled History of Present Illness - Here for follow up. - A1c was elevated. - Pt states her BS have improved. 7 day hx of sinusitis. Feeling tired. Not sleeping. Review of Systems PHQ Score Initial Depression Screen Score: 0 SCORE Physical Exam Vitals & Measurements T: 36.9 ?C(Oral) HR: 96(Peripheral) RR: 16 BP: 126/80 SpO2: 100% HT: 64 in HT: 162.5 cm WT: 92.80 kg WT: 204.16 lb BMI: 35.14 General: alert, no acute distress ENMT: oral mucosa moist, Cardiovascular: regular rate and rhythm, normal peripheral perfusion Respiratory: Lungs CTA, respirations non labored Extremities: no deformity, no trauma Neurological: oriented x 4, LOC appropriate for age, CN II-XII intact, motor strength equal & normal bilaterally, speech normal Abdomen: Soft, Nontender, Non-distended, + BS Assessment/Plan 1. Sinusitis (J32.9: Chronic sinusitis, unspecified) - Azithro ordered - Nasal saline - Flonase Ordered: A1c POC 11812 2. Controlled type 2 diabetes mellitus without complication, without long-term current use of insulin (E11.9: Type 2 diabetes mellitus without complications) - Improving. - Follow up with [facility] 3. BMI 35.0-35.9,adult (Z68.35: Body mass index [BMI] 35.0-35.9, adult) - BMI education given Ordered: azithromycin, 500 mg = 1 tab(s), Oral, Daily, # 3 tab(s), Refills(s) 0, Pharmacy: [facility] #[id number], 162.5, cm, 06/05/23 11:40:00 EDT, Height/Length Dosing, 92.8, kg, 06/05/23 11:40:00 EDT, Weight Dosing A1c POC 86315 4. Class 1 obesity due to excess calories in adult (E66.09: Other obesity due to excess calories) - Diet and exercise advised Ordered: azithromycin, 500 mg = 1 tab(s), Oral, Daily, # 3 tab(s), Refills(s) 0, Pharmacy: [facility]/pharm[facility] #[id number], 162.5, cm, 06/05/23 11:40:00 EDT, Height/Length Dosing, 92.8, kg, 06/05/23 11:40:00 EDT, Weight Dosing A1c POC 86690 5. Nonsmoker (Z78.9: Other specified health status) - Please continue to not smoke. Ordered: azithromycin, 500 mg = 1 tab(s), Oral, Daily, # 3 tab(s), Refills(s) 0, Pharmacy: [facility]/pharmacy #[id number], 162.5, cm, 06/05/23 11:40:00 EDT, Height/Length Dosing, 92.8, kg, 06/05/23 11:40:00 EDT, Weight Dosing A1c POC 11339 Follow-up No qualifying data available Patient Education BMI for Adults Problem List/Past Medical History Ongoing Controlled type 2 diabetes mellitus without complication, without long-term current use of insulin Excessive dietary caloric intake GERD without esophagitis Grief reaction Mild intermittent asthma without complication Mixed hyperlipidemia Seasonal allergies Sinusitis Historical No qualifying data Procedure/Surgical History Bilateral tubal ligation, Hysterectomy. Medications Azithromycin 3 Day Dose Pack 500 mg oral tablet, 500 mg= 1 tab(s), Oral, Daily cetirizine 10 mg Tab, 10 mg= 1 tab(s), Oral, Daily, 1 refills Glucophage XR 500 mg Tab-ER, 1000 mg= 2 tab(s), Oral, BID, 1 refills omeprazole 40 mg Cap-DR, 40 mg= 1 cap(s), Oral, Daily, 1 refills Trulicity Pen 4.5 mg/0.5 mL subcutaneous solution, 4.5 mg, SubCutaneous, qWeek Allergies No Known Allergies Social History Alcohol Current, Beer, 04/28/2022 Substance Abuse Current, 04/28/2022 Tobacco Former smoker, quit more than 30 days ago Tobacco Use:. Never Smokeless Tobacco Use:. Cigarettes, 06/05/2023 Former smokeless tobacco user, quit more than 30 days ago Smokeless Tobacco Use:. Cigarettes, 04/28/2022 Family History Diabetes mellitus type 2: Father. Hyperlipidemia: Mother and Father. Hypertension: Mother and Father. Immunizations Vaccine Date Status Comments influenza virus vaccine, inactivated 01/16/2023 Given influenza virus vaccine, inactivated 12/29/2021 Recorded SARS-CoV-2 (COVID-19) mRNA-1273 vaccine 01/25/2021 Recorded influenza virus vaccine, inactivated 01/01/2021 Recorded SARS-CoV-2 (COVID-19) Ad26 vaccine 05/22/2020 Recorded 2022-09-26: TPV21 influenza virus vaccine, inactivated 12/22/2019 Recorded diphtheria/pertussi s, acel/tetanus adult 09/09/2019 Recorded influenza virus vaccine, inactivated 02/03/2017 Recorded influenza virus vaccine, inactivated 01/21/2014 Recorded Lab Results Ambulatory Point of Care Results Hgb A1c POC: 9.9 % (06/05/23 12:05:00) Normal [facility] Comment on above: Result Comment: Elec tronically Signed By: Siva ALMAZAN, Ramesh Flores.br\Date and Time Signed: 06/05/23 12:19 EDT Patient Educationon 06-05-19 24 Patient Education Nutrition BMI for Adults What is BMI? Body mass index (BMI) is a number that is calculated from a person's weight and height. BMI can help estimate how much of a person's weight is composed of fat. BMI does not measure body fat directly. Rather, it is an alternative to procedures that directly measure body fat, which can be difficult and expensive. BMI can help identify people who may be at higher risk for certain medical problems. What are BMI measurements used for? BMI is used as a screening tool to identify possible weight problems. It helps determine whether a person is obese, overweight, a healthy weight, or underweight. BMI is useful for: ? Identifying a weight problem that may be related to a medical condition or may increase the risk for medical problems. ? Promoting changes, such as changes in diet and exercise, to help reach a healthy weight. BMI screening can be repeated to see if these changes are working. How is BMI calculated? BMI involves measuring your weight in relation to your height. Both height and weight are measured, and the BMI is calculated from those numbers. This can be done either in [place] ([place] or metric measurements. Note that charts and online BMI calculators are available to help you find your BMI quickly and easily without having to do these calculations yourself. To calculate your BMI in [place] ([place] measurements: 1. Measure your weight in pounds (lb). 2. Multiply the number of pounds by 703. ? For example, for a person who weighs 180 lb, multiply that number by 703, which equals 126,540. 3. Measure your height in inches. Then multiply that number by itself to get a measurement called inches squared. ? For example, for a person who is 70 inches tall, the inches squared measurement is 70 inches x 70 inches, which equals 4,900 inches squared. 4. Divide the total from step 2 (number of lb x 703) by the total from step 3 (inches squared): 126,540 ? 4,900 = 25.8. This is your BMI. To calculate your BMI in metric measurements: 1. Measure your weight in kilograms (kg). 2. Measure your height in meters (m). Then multiply that number by itself to get a measurement called meters squared. ? For example, for a person who is 1.75 m tall, the meters squared measurement is 1.75 m x 1.75 m, which is equal to 3.1 meters squared. 3. Divide the number of kilograms (your weight) by the meters squared number. In this example: 70 ? 3.1 = 22.6. This is your BMI. What do the results mean? BMI charts are used to identify whether you are underweight, normal weight, overweight, or obese. The following guidelines will be used: ? Underweight: BMI less than 18.5. ? Normal weight: BMI between 18.5 and 24.9. ? Overweight: BMI between 25 and 29.9. ? Obese: BMI of 30 or above. Keep these notes in mind: ? Weight includes both fat and muscle, so someone with a muscular build, such as an athlete, may have a BMI that is higher than 24.9. In cases like these, BMI is not an accurate measure of body fat. ? To determine if excess body fat is the cause of a BMI of 25 or higher, further assessments may need to be done by a health care provider. ? BMI is usually interpreted in the same way for men and women. Where to find more information For more information about BMI, including tools to quickly calculate your BMI, go to these websites: ? Centers for Disease Control and Prevention: www.cdc.gov ? [place] [employer]: www.heart.org ? National Heart, Lung, and Blood [place]: www.nhlbi.nih.gov Summary ? Body mass index (BMI) is a number that is calculated from a person's weight and height. ? BMI may help estimate how much of a person's weight is composed of fat. BMI can help identify those who may be at higher risk for certain medical problems. ? BMI can be measured using [place]ian measurements or metric measurements. ? BMI charts are used to identify whether you are underweight, normal weight, overweight, or obese. This information is not intended to replace advice given to you by your health care provider. Make sure you discuss any questions you have with your health care provider. Document Revised: 11/24/2019 Document Reviewed: 10/01/2019 [employer] Patient Education ? 2022 [employer] [facility] Provider Letteron 06-05-2023 Provider Letter June 05, 2023 SE WOLF [address] [place] [id number] : 1985 To Whom It May Concern, Please excuse above patient from work due to medical. Date of Illness: From: _06-05-23 To: _06-08-23 May Return to Work On:06-09-23 Restrictions: _ NONE Comments: _ Sincerely, [address] [address] [facility] Ambulatory Visit Summaryon 0 05-29-2023 Ambulatory Visit Summary SE WOLF :1985 Visit Date:05/29/2023 Ambulatory Visit Instructions Your Diagnosis Diabetes Hyperlipidemia Your Care Team Attending Physician - Ramesh Paniagua MD Primary Care Physician - Ramesh Paniagua MD This Is Your Medications List cetirizine (cetirizine 10 mg Tab) dulaglutide (Trulicity Pen 4.5 mg/0.5 mL subcutaneous solution) metformin (Glucophage XR 500 mg Tab-ER) omeprazole (omeprazole 40 mg Cap-DR) Procedures Performed Bilateral tubal ligation, Hysterectomy. What to do next Scheduled Follow-Up Appointments July. 2023 7:00 AM EDT With: Ramesh Paniagua MD Where: [facility] CBC w/ Auto Diffon 4 Basophils/100 WBC (Bld) 0.5 % Normal 0.0-2.0 [facility] Comment on above: Performed By: #### 2 815457, [id number], 39049861, 9231711, 4997259 ####[address] [address] Basophils/Leukocytes Auto (Bld) [Pure # fraction] 0.0 E9/L Normal 0.0-0.2 [facility] Comment on above: Performed By: #### 2 020918, [id number], 85776639, 4468490, 8411192 ####[address] [address] Eosinophils (Bld) [#/Vol] 0.2 E9/L Normal 0.0-0.5 [facility] Comment on above: Performed By: #### 2 766473, 235361547, 47383675, 9645491, 8664272 ####[address] [address] Eosinophils/100 WBC (Bld) 2.3 % Normal 0.0-8.0 [facility] Comment on above: Performed By: #### 2 330195, 018322678, 92938647, 9503453, 4863136 ####[address] [address] Erythrocyte distribution width (RBC) [Ratio] 13.6 % Normal 10.9-14.2 [facility] Comment on above: Performed By: #### 2 639438, 788066711, 96802636, 9175267, 3078212 ####[address] [address] Hematocrit (Bld) [Volume fraction] 40.8 % Normal 34.0-46.0 [facility] Comment on above: Performed By: #### 2 211755, 351369566, 46753634, 1122125, 2616274 ####[address] [address] Hemoglobin (Bld) [Mass/Vol] 13.4 g/dL Normal 12.0-16.0 [facility] Comment on above: Performed By: #### 2 135865, 862371119, 85686716, 8845964, 1728658 ####[facility] [address] [place] [address] Lymphocytes (Bld) [#/Vol] 2.8 E9/L Normal 1.0-4.0 [facility] Comment on above: Performed By: #### 2 099504, 309177910, 52222082, 3127158, 8456561 ####[address] [address] Lymphocytes/100 WBC (Bld) 39.1 % Normal 14.0-50.0 [facility] Comment on above: Performed By: #### 2 777394, 120124744, 67607196, 4642387, 8024980 ####[address] [address] MCH (RBC) [Entitic mass] 29.3 pg Normal 27.0-34.0 [facility] Comment on above: Performed By: #### 2 906370, 658424928, 63086356, 2742115, 6769995 ####[address] [address] MCHC (RBC) [Mass/Vol] 32.9 g/dL Normal 31.4-36.0 [facility] Comment on above: Performed By: #### 2 670865, 696202455, 40354133, 1751316, 6494239 ####[address] [address] MCV (RBC) [Entitic vol] 89.2 fL Normal 80.0-100.0 [facility] Comment on above: Performed By: #### 2 568984, 414775181, 89653884, 3066416, 9923075 ####[address] [address] Monocytes (Bld) [#/Vol] 0.6 E9/L Normal 0.2-1.0 [facility] Comment on above: Performed By: #### 2 327072, 629519962, 62988068, 3684387, 0072452 ####[address] [place] [address] Neutrophils (Bld) [#/Vol] 3.5 E9/L Normal 2.0-7.5 [facility] Comment on above: Performed By: #### 2 588539, 115240205, 41022244, 8590261, 2415546 ####[address] [address] Neutrophils/100 WBC (Bld) 49.9 % Normal 36.0-75.0 [facility] Comment on above: Performed By: #### 2 639639, 937450208, 77616689, 5372261, 3129549 ####[address] [address] Platelet 347.0 E9/L Normal 150.0-500.0 [facility] Comment on above: Performed By: #### 2 061355, 670450745, 46718426, 8404008, 5929954 ####[address] [address] Platelet mean volume (Bld) [Entitic vol] 6.6 fL Normal 6.4-10.8 [facility] Comment on above: Performed By: #### 2 313172, 733881044, 39690799, 7199406, 4970850 ####[address] [address] RBC (Bld) [#/Vol] 4.6 E12/L Normal 4.3-5.9 [facility] Comment on above: Performed By: #### 2 885788, 831314020, 70365568, 9508841, 6745680 ####[facility] [address] [place] [address] WBC corrected for nucl RBC Auto (Bld) [#/Vol] 7.1 E9/L Normal 4.0-11.0 [facility] Comment on above: Performed By: #### 2 151156, 168833427, 92593819, 6386471, 3714373 ####[facility] [address] [place] [address] CHEMISTRYOrdered By: SYSTEM SYSTEM on 05-29-2023 Albumin DL <= 20 mg/L (U) [Mass/Vol] 0.8 mg/dL Normal 0.0 - 1.9 mg/dL [facility] Chem Albumin [Mass/Vol] 4.1 g/dL Normal 3.3 - 5.0 gm/dL R emisol Chem Albumin/Globulin [Mass ratio] 2.0 {ratio} Normal 1.1 - 2.2 [facility] ALP [Catalytic activity/Vol] 62 [iU]/d Normal 21 - 98 Int._Unit/L [facility] ALT No additional P-5'-P [Catalytic activity/Vol] 24 [iU]/d Normal 6 - 46 Int._Unit/L [facility] Anion gap [Moles/Vol] 13 mmol/L Normal 6 - 16 mEq/L R emisol Chem AST [Catalytic activity/Vol] 14 [iU]/d Normal 5 - 43 Int._Unit/L [facility] Bilirubin [Mass/Vol] 0.5 mg/dL Normal 0.0 - 1.1 mg/dL [facility] Calcium [Mass/Vol] 9.4 mg/dL Normal 8.9 - 11. 1 mg/dL [facility] Chloride [Moles/Vol] 106 mmol/L Normal 101 - 1 11 mmol/L [facility] Cholesterol [Mass/Vol] 168 mg/dL Normal 120 - 200 mg/dL [facility] Cholesterol in HDL [Mass/Vol] 46 mg/dL Invalid Interpretation Code [facility] Comment on above: Result Comment: '>= 60 LOW RISK' '<= 40 HIGH RISK' Cholesterol in LDL [Mass/Vol] 111 mg/dL Normal <=129mg/dL [facility] Cholesterol in VLDL [Mass/Vol] 20 mg/dL Normal 7 - 40 mg/dL [facility] CO2 [Moles/Vol] 23 mmol/L Normal 21 - 31 mmol/L Remis ol Chem Creatinine [Mass/Vol] 0.6 mg/dL Normal 0.5 - 1.3 mg/d L [facility] eGFR 116 mL/min/1.73 m2 Normal >=59mL/mi n/1.73 m2 [facility] Globulin (S) [Mass/Vol] 2.1 g/dL Normal 1.4 - 4.0 gm/dL [facility] Glucose [Mass/Vol] 151 mg/dL Normal 55 - 199 mg/dL Re misol Chem Potassium [Moles/Vol] 3.9 mmol/L Normal 3.5 - 5.3 mmol/L [facility] Protein [Mass/Vol] 6.2 g/dL Normal 6.0 - 7.8 gm/dL R emisol Chem Sodium [Moles/Vol] 138 mmol/L Normal 135 - 145 mmol/L [facility] Triglyceride [Mass/Vol] 101 mg/dL Normal <=149mg/dL [facility] Urea nitrogen [Mass/Vol] 8 mg/dL Normal 5 - 21 mg/dL [facility] Urea nitrogen/Creatinine [Mass ratio] 13 mg/mg Normal 10 - 20 [facility] CHEMISTRYOrdered By: Bhavani Rea on 05-29-2023 HbA1c (Bld) [Mass fraction] 10.2 % High <=5.9% [facility] ChemAutoSS CMPon 05-29-2023 Albumin [Mass/Vol] 4.1 g/dL Normal 3.3-5.0 [facility] Comment on above: Performed By: #### 2 104800, 547176653, 46570246, 4774456, 0498539 ####[facility] [address] [place] [address] Albumin/Globulin (S) [Mass conc ratio] 2.0 Normal 1.1-2.2 [facility] Comment on above: Performed By: #### 2 248686, 854593223, 25228106, 5032763, 7390278 ####[facility] [address] [place] [address] ALP [Catalytic activity/Vol] 62 Int._Unit/L Normal 21-98 [facility] Comment on above: Performed By: #### 2 614482, 724144816, 07593941, 9323430, 2189074 ####[facility] [address] [place] [address] ALT No additional P-5'-P [Catalytic activity/Vol] 24 Int._Unit/L Normal 6-46 [facility] Comment on above: Performed By: #### 2 802780, 872956685, 55566904, 7262119, 2323336 ####[facility] [address] [place] [address] Anion gap [Moles/Vol] 13 mmol/L Normal 6-16 [facility] Comment on above: Performed By: #### 2 429403, 742704107, 82165281, 4011950, 9508487 ####[address] [place] [address] AST [Catalytic activity/Vol] 14 Int._Unit/L Normal 5-43 [facility] Comment on above: Performed By: #### 2 839123, 760469252, 67585838, 2334438, 3328986 ####[facility] [address] [place] [address] Bilirubin [Mass/Vol] 0.5 mg/dL Normal 0.0-1.1 [facility] Comment on above: Performed By: #### 2 336225, 287100029, 68497777, 8924884, 0069155 ####[facility] [address] [place] [address] Calcium [Mass/Vol] 9.4 mg/dL Normal 8.9-11.1 [facility] Comment on above: Performed By: #### 2 807378, 929360078, 96846627, 9814762, 9647454 ####[facility] [address] [place] [address] Chloride [Moles/Vol] 106 mmol/L Normal 101-111 [facility] Comment on above: Performed By: #### 2 455951, 092615863, 47871352, 9470498, 5610916 ####[facility] [address] [place] [address] CO2 [Moles/Vol] 23 mmol/L Normal 21-31 [facility] Comment on above: Performed By: #### 2 826628, 132278198, 49362412, 7564562, 5960588 ####[facility] [address] [place] [address] Creatinine [Mass/Vol] 0.6 mg/dL Normal 0.5-1.3 [facility] Comment on above: Performed By: #### 2 793068, 015024906, 14191405, 1105084, 5732895 ####[facility] [address] [place] [address] Globulin (S) [Mass/Vol] 2.1 g/dL Normal 1.4-4.0 [facility] Comment on above: Performed By: #### 2 511387, 936223708, 39939321, 8336768, 7415806 ####[facility] [address] [place] [address] Glucose [Mass/Vol] 151 mg/dL Normal 55-199 [facility] Comment on above: Performed By: #### 2 860276, 048882477, 84737297, 6662538, 0491056 ####[facility] [address] [place] [address] Potassium [Moles/Vol] 3.9 mmol/L Normal 3.5-5.3 [facility] Comment on above: Performed By: #### 2 993351, 905128264, 11750561, 5557271, 2202402 ####[facility] [address] [place] [address] Protein [Mass/Vol] 6.2 g/dL Normal 6.0-7.8 [facility] Comment on above: Performed By: #### 2 043659, 664813196, 68050419, 2524133, 3772937 ####[facility] [address] [place] [address] Sodium [Moles/Vol] 138 mmol/L Normal 135-145 [facility] Comment on above: Performed By: #### 2 713058, 279675688, 84277976, 5924030, 4459786 ####[facility] [address] [place] [address] Urea nitrogen [Mass/Vol] 8 mg/dL Normal 5-21 [facility] Comment on above: Performed By: #### 2 287104, 544642736, 10576475, 2851328, 2525627 ####[facility] [address] [place] [address] Urea nitrogen/Creatinine [Mass ratio] 13 No Units Normal 10-20 [facility] Comment on above: Performed By: #### 2 462023, 033770978, 22608372, 4354481, 1521039 ####[facility] [address] [place] [address] HEMATOLOGYOrdered By: SYSTEM SYSTEM on 05-29-2023 Basophils/100 WBC (Bld) 0.5 % Normal 0.0 - 2.0 % [facility] Heme Basophils/Leukocytes Auto (Bld) [Pure # fraction] 0.0 E9/L Normal 0.0 - 0.2 E9/L [facility] Eosinophils (Bld) [#/Vol] 0.2 E9/L Normal 0.0 - 0.5 E9/L [facility] Eosinophils/100 WBC (Bld) 2.3 % Normal 0.0 - 8.0 % [facility] Erythrocyte distribution width (RBC) [Ratio] 13.6 % Normal 10.9 - 14.2 % [facility] Hematocrit (Bld) [Volume fraction] 40.8 % Normal 34.0 - 46.0 % [facility]e Hemoglobin (Bld) [Mass/Vol] 13.4 g/dL Normal 12.0 - 16.0 gm/dL [facility] Lymphocytes (Bld) [#/Vol] 2.8 E9/L Normal 1.0 - 4.0 E9/L [facility] Lymphocytes/100 WBC (Bld) 39.1 % Normal 14.0 - 50.0 % [facility] MCH (RBC) [Entitic mass] 29.3 pg Normal 27.0 - 34.0 pg Rem[facility] Heme MCHC (RBC) [Mass/Vol] 32.9 g/dL Normal 31.4 - 36.0 gm/dL [facility]e MCV (RBC) [Entitic vol] 89.2 fL Normal 80.0 - 100.0 fL [facility] Monocytes (Bld) [#/Vol] 0.6 E9/L Normal 0.2 - 1.0 E9/L [facility] Monocytes/100 WBC (Bld) 8.2 % Normal 4.0 - 14.0 % [facility] Neutrophils (Bld) [#/Vol] 3.5 E9/L Normal 2.0 - 7.5 E9/L [facility] Neutrophils/100 WBC (Bld) 49.9 % Normal 36.0 - 75.0 % [facility] Platelet 347.0 E9/L Normal 150.0 - 500.0 E9/L [facility] Platelet mean volume (Bld) [Entitic vol] 6.6 fL Normal 6.4 - 10.8 fL [facility] Heme RBC (Bld) [#/Vol] 4.6 E12/L Normal 4.3 - 5.9 E12/L Re misol Heme WBC corrected for nucl RBC Auto (Bld) [#/Vol] 7.1 E9/L Normal 4.0 - 11.0 E9/L [facility]e [id number] 05-29-2023 HbA1c (Bld) [Mass fraction] 10.2 % High <=5.9 [facility] Comment on above: Performed By: #### 2 531589, 013012538, 79043311, 7803581, 5287743 ####[facility] [address] [place] [address] Lipid Panelon 05-29-2023 Cholesterol [Mass/Vol] 168 mg/dL Normal 120-200 [facility] Comment on above: Performed By: #### 2 951048, 109198922, 50860574, 7837046, 4951622 ####[facility] [address] [place] [address] Cholesterol in HDL [Mass/Vol] 46 mg/dL Invalid Interpretation Code [facility] Comment on above: Result Comment: '>= 60 LOW RISK' '<= 40 HIGH RISK' Performed By: #### 2 597237, 353871658, 71546534, 6228584, 7473020 ####[facility] [address] [place] [address] Cholesterol in LDL [Mass/Vol] 111 mg/dL Normal <=129 [facility] Comment on above: Performed By: #### 2 567515, 045454109, 06530198, 4517145, 8282908 ####[facility] [address] [place] [address] Cholesterol in VLDL [Mass/Vol] 20 mg/dL Normal 7-40 [facility] Comment on above: Performed By: #### 2 883645, 510286746, 17648306, 7473758, 1016403 ####[facility] [address] [place] [address] Triglyceride [Mass/Vol] 101 mg/dL Normal <=149 [facility] Comment on above: Performed By: #### 2 125247, 046540903, 87205563, 2337410, 1935634 ####[facility] [address] [place] [address] Nurse Consultation Noteon Nurse Consultation Note Reason for Visit Here for lab draw Assessment/Plan Diabetes (E11.9: Type 2 diabetes mellitus without complications) Hyperlipidemia (E78.5: Hyperlipidemia, unspecified) Medications cetirizine 10 mg Tab, 10 mg= 1 tab(s), Oral, Daily, 1 refills Glucophage XR 500 mg Tab-ER, 1000 mg= 2 tab(s), Oral, BID, 1 refills omeprazole 40 mg Cap-DR, 40 mg= 1 cap(s), Oral, Daily, 1 refills Trulicity Pen 4.5 mg/0.5 mL subcutaneous solution, 4.5 mg, SubCutaneous, qWeek Allergies No Known Allergies Immunizations Vaccine Date Status Comments influenza virus vaccine, inactivated 01/16/2023 Given influenza virus vaccine, inactivated 12/29/2021 Recorded SARS-CoV-2 (COVID-19) mRNA-1273 vaccine 01/25/2021 Recorded influenza virus vaccine, inactivated 01/01/2021 Recorded SARS-CoV-2 (COVID-19) Ad26 vaccine 05/22/2020 Recorded 2022-09-26: TPV21 influenza virus vaccine, inactivated 12/22/2019 Recorded diphtheria/pertussi s, acel/tetanus adult 09/09/2019 Recorded influenza virus vaccine, inactivated 02/03/2017 Recorded influenza virus vaccine, inactivated 01/21/2014 Recorded Normal [facility] U Albuminon 05-29-2023 Albumin DL <= 20 mg/L (U) [Mass/Vol] 0.8 mg/dL Normal 0.0-1.9 [facility] Comment on above: Performed By: #### 1 [id number] ####[facility] [address] [place] [address] eGFRon 05-29-2023 eGFR 116 mL/min/1.73 m2 Normal >=59 [facility] Comment on above: Order Comment: Order added by Discern Expert. Performed By: #### 2 571878, 776556816, 93783164, 6257987, 3026140 ####[facility] [address] [place] [address] Outside Diabetes Eye Examon 05-14-2023 Outside Diabetes Eye Exam [id number]#[id number] Normal [facility] Ambulatory Visit Summaryon 0 04-24-2023 Ambulatory Visit Summary SE WOLF :1985 Visit Date:04/24/2023 Ambulatory Visit Instructions Your Diagnosis Controlled type 2 diabetes mellitus without complication, without long-term current use of insulin BMI 35.0-35.9,adult Class 1 obesity due to excess calories in adult Former smoker GERD without esophagitis Your Care Team Attending Physician - Ramesh Paniagua MD Primary Care Physician - Ramesh Paniagua MD This Is Your Medications List cetirizine (cetirizine 10 mg Tab) dulaglutide (Trulicity Pen 4.5 mg/0.5 mL subcutaneous solution) metformin (Glucophage XR 500 mg Tab-ER) omeprazole (omeprazole 40 mg Cap-DR) phentermine (phentermine 37.5 mg Tab) Procedures Performed Bilateral tubal ligation, Hysterectomy. Discharge Vitals Temperature (Temporal Artery) 37.0 ?C Heart Rate (Peripheral) 88 Respiratory Rate 16 Blood Pressure 102/68 Height 162.5 cm Height 64 in Weight 92.9 kg Weight 204.38 lb BMI 35.18 What to do next Scheduled Follow-Up Appointments 2023 7:00 AM EDT With: Where: [facility] [place] Normal [address] [place] [phone] \.br\ Medications\.br \ What How Much When Instructions\.b r\ Unchanged cetirizine (cetirizine 10 mg Tab) 1 Tablets By Mouth Every day\.br\ Unchanged dulaglutide (Trulicity Pen 4.5 mg/ 0.5 mL subcutaneous solution) 4.5 Milligram Subcutaneous Every week\.br\ Unchanged metformin (Glucophage XR 500 mg Tab-ER) 2 Tablets By Mouth 2 times a day\.br\ Unchanged omeprazole (omeprazole 40 mg Cap-DR) 1 Capsules By Mouth Every day\.br\ Unchanged phentermine (phentermine 37.5 mg Tab) 1 Tablets By Mouth Every day\.br\ Allergies\.br\ No Known Allergies\.br\ Problems\.br\ Ongoing - Any problem that you are currently receiving treatment for.\.br\ Controlled type 2 diabetes mellitus without complication, without long-term current use of insulin\.br\ Excessive dietary caloric intake\.br\ GERD without esophagitis\.br \ Grief reaction\.br\ Mild intermittent asthma without complication\.b r\ Mixed hyperlipidemia\ .br\ Seasonal allergies\.br\ Patient Survey\.br\ You may receive a survey via text or e-mail asking about your office visit. Please share your experience with us by completing your survey. We appreciate your feedback and thank you for choosing us for your care.\.br\ \.br\ [facility] Family Medicine Office/Clini c Noteon 04-24-2023 Family Medicine Office/Clinic Note HPI Staff Se is a 38 year old female presenting for one month follow up diabetes Do you have any of the following symptoms? Foot Exam: once long time ago Eye Exam: due Apr 2023 Last A1C: 11.4 POC 03/20/23 Statin: none flu: UTD 01/16/23 questions/concerns: none History of Present Illness Pt states her BS have improved. She states they are always in the 120-140. Pt states she is slowly loosing weight No issues with GERD. Review of Systems PHQ Score Initial Depression Screen Score: 0 SCORE Physical Exam Vitals & Measurements T: 37.0 ?C(Temporal Artery) HR: 88(Peripheral) RR: 16 BP: 102/68 SpO2: 98% HT: 64 in HT: 162.5 cm WT: 92.9 kg WT: 204.38 lb BMI: 35.18 General: alert, no acute distress ENMT: oral mucosa moist, Cardiovascular: regular rate and rhythm, normal peripheral perfusion Respiratory: Lungs CTA, respirations non labored Extremities: no deformity, no trauma Neurological: oriented x 4, LOC appropriate for age, CN II-XII intact, motor strength equal & normal bilaterally, speech normal Abdomen: Soft, Nontender, Non-distended, + BS Assessment/Plan 1. Controlled type 2 diabetes mellitus without complication, without long-term current use of insulin (E11.9: Type 2 diabetes mellitus without complications) - Continue on medication as before. - Follow up in 3 months - Adjust meds as needed 2. BMI 35.0-35.9,adult (Z68.35: Body mass index [BMI] 35.0-35.9, adult) - BMI education given 3. Class 1 obesity due to excess calories in adult (E66.09: Other obesity due to excess calories) - Discussed diet and exercise - Pt does not want adipex today 4. Former smoker (Z87.891: Personal history of nicotine dependence) - Please continue to not smoke. 5. GERD without esophagitis (K21.9: Gastro-esophageal reflux disease without esophagitis) Orders: dulaglutide, 4.5 mg, SubCutaneous, qWeek, # 12 EA, Refills(s) 0, Pharmacy: [facility]/pharmacy #[id number], 162.5, cm, 04/24/23 6:59:00 EST, Height/Length Dosing, 92.9, kg, 04/24/23 6:59:00 EST, Weight Dosing Follow-up No qualifying data available Patient Education BMI for Adults Problem List/Past Medical History Ongoing Controlled type 2 diabetes mellitus without complication, without long-term current use of insulin Excessive dietary caloric intake GERD without esophagitis Grief reaction Mild intermittent asthma without complication Mixed hyperlipidemia Seasonal allergies Historical No qualifying data Procedure/Surgical History Bilateral tubal ligation, Hysterectomy. Medications cetirizine 10 mg Tab, 10 mg= 1 tab(s), Oral, Daily, 1 refills Glucophage XR 500 mg Tab-ER, 1000 mg= 2 tab(s), Oral, BID, 1 refills omeprazole 40 mg Cap-DR, 40 mg= 1 cap(s), Oral, Daily, 1 refills Trulicity Pen 4.5 mg/0.5 mL subcutaneous solution, 4.5 mg, SubCutaneous, qWeek Allergies No Known Allergies Social History Alcohol Current, Beer, 04/28/2022 Substance Abuse Current, 04/28/2022 Tobacco Former smoker, quit more than 30 days ago Tobacco Use:. Never Smokeless Tobacco Use:. Cigarettes, 04/24/2023 Former smokeless tobacco user, quit more than 30 days ago Smokeless Tobacco Use:. Cigarettes, 04/28/2022 Family History Diabetes mellitus type 2: Father. Hyperlipidemia: Mother and Father. Hypertension: Mother and Father. Immunizations Vaccine Date Status Comments influenza virus vaccine, inactivated 01/16/2023 Given influenza virus vaccine, inactivated 12/29/2021 Recorded SARS-CoV-2 (COVID-19) mRNA-1273 vaccine 01/25/2021 Recorded influenza virus vaccine, inactivated 01/01/2021 Recorded SARS-CoV-2 (COVID-19) Ad26 vaccine 05/22/2020 Recorded 2022-09-26: TPV21 influenza virus vaccine, inactivated 12/22/2019 Recorded diphtheria/pertussi s, acel/tetanus adult 09/09/2019 Recorded influenza virus vaccine, inactivated 02/03/2017 Recorded influenza virus vaccine, inactivated 01/21/2014 Recorded Normal [facility] Comment on above: Result Comment: Elec tronically Signed By: Siva ALMAZAN, Ramesh Flores.br\Date and Time Signed: 04/24/23 07:20 EST Patient Educationon 04-24-19 Patient Education Nutrition BMI for Adults What is BMI? Body mass index (BMI) is a number that is calculated from a person's weight and height. BMI can help estimate how much of a person's weight is composed of fat. BMI does not measure body fat directly. Rather, it is an alternative to procedures that directly measure body fat, which can be difficult and expensive. BMI can help identify people who may be at higher risk for certain medical problems. What are BMI measurements used for? BMI is used as a screening tool to identify possible weight problems. It helps determine whether a person is obese, overweight, a healthy weight, or underweight. BMI is useful for: ? Identifying a weight problem that may be related to a medical condition or may increase the risk for medical problems. ? Promoting changes, such as changes in diet and exercise, to help reach a healthy weight. BMI screening can be repeated to see if these changes are working. How is BMI calculated? BMI involves measuring your weight in relation to your height. Both height and weight are measured, and the BMI is calculated from those numbers. This can be done either in [place] ([place] or metric measurements. Note that charts and online BMI calculators are available to help you find your BMI quickly and easily without having to do these calculations yourself. To calculate your BMI in [place] measurements: 1. Measure your weight in pounds (lb). 2. Multiply the number of pounds by 703. ? For example, for a person who weighs 180 lb, multiply that number by 703, which equals 126,540. 3. Measure your height in inches. Then multiply that number by itself to get a measurement called inches squared. ? For example, for a person who is 70 inches tall, the inches squared measurement is 70 inches x 70 inches, which equals 4,900 inches squared. 4. Divide the total from step 2 (number of lb x 703) by the total from step 3 (inches squared): 126,540 ? 4,900 = 25.8. This is your BMI. To calculate your BMI in metric measurements: 1. Measure your weight in kilograms (kg). 2. Measure your height in meters (m). Then multiply that number by itself to get a measurement called meters squared. ? For example, for a person who is 1.75 m tall, the meters squared measurement is 1.75 m x 1.75 m, which is equal to 3.1 meters squared. 3. Divide the number of kilograms (your weight) by the meters squared number. In this example: 70 ? 3.1 = 22.6. This is your BMI. What do the results mean? BMI charts are used to identify whether you are underweight, normal weight, overweight, or obese. The following guidelines will be used: ? Underweight: BMI less than 18.5. ? Normal weight: BMI between 18.5 and 24.9. ? Overweight: BMI between 25 and 29.9. ? Obese: BMI of 30 or above. Keep these notes in mind: ? Weight includes both fat and muscle, so someone with a muscular build, such as an athlete, may have a BMI that is higher than 24.9. In cases like these, BMI is not an accurate measure of body fat. ? To determine if excess body fat is the cause of a BMI of 25 or higher, further assessments may need to be done by a health care provider. ? BMI is usually interpreted in the same way for men and women. Where to find more information For more information about BMI, including tools to quickly calculate your BMI, go to these websites: ? Centers for Disease Control and Prevention: www.cdc.gov ? [place] Heart Association: www.heart.org ? National Heart, Lung, and Blood [place]: www.nhlbi.nih.gov Summary ? Body mass index (BMI) is a number that is calculated from a person's weight and height. ? BMI may help estimate how much of a person's weight is composed of fat. BMI can help identify those who may be at higher risk for certain medical problems. ? BMI can be measured using [place]ian measurements or metric measurements. ? BMI charts are used to identify whether you are underweight, normal weight, overweight, or obese. This information is not intended to replace advice given to you by your health care provider. Make sure you discuss any questions you have with your health care provider. Document Revised: 11/24/2019 Document Reviewed: 10/01/2019 [employer] Patient Education ? 2022 [employer] [facility] [employer] 04-21-2023 Forms [id number] 9C#1.00TIFF [facility] [employer] 04-17-2023 Forms [id number] E3#1.00TIFF [facility] [employer] 04-01-2023 Forms [id number] 20#1.00TIFF [facility] Ambulatory Visit Summaryon 0 03-20-2023 Ambulatory Visit Summary SE WOLF :1985 Visit Date:03/20/2023 Ambulatory Visit Instructions Your Diagnosis Controlled type 2 diabetes mellitus without complication, without long-term current use of insulin Excessive dietary caloric intake GERD without esophagitis BMI 35.0-35.9,adult Class 1 obesity due to excess calories in adult Former smoker Your Care Team Attending Physician - Ramesh Paniagua MD Primary Care Physician - Ramesh Paniagua MD This Is Your Medications List metformin (Glucophage XR 500 mg Tab-ER) phentermine (phentermine 37.5 mg Tab) Contact prescribing physician if questions or concerns cetirizine (cetirizine 10 mg Tab) dulaglutide (Trulicity Pen 4.5 mg/0.5 mL subcutaneous solution) omeprazole (omeprazole 40 mg Jimmy-) Procedures Performed Bilateral tubal ligation, Hysterectomy. Discharge Vitals Temperature (Temporal Artery) 37.1 ?C Heart Rate (Peripheral) 64 Respiratory Rate 14 Blood Pressure 118/70 Height 162.5 cm Height 64 in Weight 94.5 kg Weight 207.9 lb BMI 35.79 What to do next Scheduled Follow-Up Appointments 2023 7:00 AM EST With: Ramesh Paniagua MD Where: [facility] Normal [facility] Family Medicine Office/Clini c Noteon 03-20-2023 Family Medicine Office/Clinic Note HPI Staff Se is a 38 year old female presenting for 2 month follow up Do you have any of the following symptoms? Foot Exam: none Eye Exam: Apr 2022 due in Apr 2023 Last A1C: Jan 2023 ( dr oh) 11.0% Statin: none Weight management Sleeping well:Yes, 6-8 hours Chest pain:No Tremors:No Headaches:Yes sinus type Heart fluttering:No Blurred Vision:No Weight last visit: 95kg/210.98lbs Weight this visit: 94.5kg/207.9 flu: UTD questions/concerns: needs the adipex refilled History of Present Illness Dr. Oh did not make any changes to his Trulicity. She is on metformin 500 mg 1 pill twice a day. She was gaining weight over . She did not follow a diet during . She was told to be careful with keto diet because her cholesterol would go up. She is going back to her diet after New Year. Review of Systems PHQ Score Initial Depression Screen Score: 0 SCORE Physical Exam Vitals & Measurements T: 37.1 ?C(Temporal Artery) HR: 64(Peripheral) RR: 14 BP: 118/70 SpO2: 98% HT: 64 in HT: 162.5 cm WT: 94.5 kg WT: 207.9 lb BMI: 35.79 General: alert, no acute distress ENMT: oral mucosa moist, Cardiovascular: regular rate and rhythm, normal peripheral perfusion Respiratory: Lungs CTA, respirations non labored Extremities: no deformity, no trauma Neurological: oriented x 4, LOC appropriate for age, CN II-XII intact, motor strength equal & normal bilaterally, speech normal Abdomen: Soft, Nontender, Non-distended, + BS Assessment/Plan 1. Controlled type 2 diabetes mellitus without complication, without long-term current use of insulin (E11.9: Type 2 diabetes mellitus without complications) - She has lost 2 pounds since . I will increase her metformin to 2 pills in the morning and 2 pills in the afternoon. I will do a point of care A1c today. 2. Excessive dietary caloric intake (R63.2: Polyphagia) - Will continue the patient on Adipex. - Follow up in 1 month 3. GERD without esophagitis (K21.9: Gastro-esophageal reflux disease without esophagitis) - Controlled. - Will refill as needed 4. BMI 35.0-35.9,adult (Z68.35: Body mass index [BMI] 35.0-35.9, adult) - BMI education given 5. Class 1 obesity due to excess calories in adult (E66.09: Other obesity due to excess calories) - Diet and exercise advised 6. Former smoker (Z87.891: Personal history of nicotine dependence) - Please continue to not smoke. Orders: metformin, 1,000 mg = 2 tab(s), Oral, BID, # 360 tab(s), Refills(s) 1, Pharmacy: [facility] #[id number], 162.5, cm, 03/20/23 7:02:00 EST, Height/Length Dosing, 94.5, kg, 03/20/23 7:02:00 EST, Weight Dosing phentermine, 37.5 mg = 1 tab(s), Oral, Daily, # 30 tab(s), Refills(s) 0, Pharmacy: [facility] #[id number], 162.5, cm, 03/20/23 7:02:00 EST, Height/Length Dosing, 94.5, kg, 03/20/23 7:02:00 EST, Weight Dosing Follow up in 1 month since A1c here was 11. Follow-up No qualifying data available Patient Education BMI for Adults Problem List/Past Medical History Ongoing Controlled type 2 diabetes mellitus without complication, without long-term current use of insulin Excessive dietary caloric intake GERD without esophagitis Grief reaction Mild intermittent asthma without complication Mixed hyperlipidemia Seasonal allergies Historical No qualifying data Procedure/Surgical History Bilateral tubal ligation, Hysterectomy. Medications cetirizine 10 mg Tab, 10 mg= 1 tab(s), Oral, Daily, 1 refills Glucophage XR 500 mg Tab-ER, 1000 mg= 2 tab(s), Oral, BID, 1 refills omeprazole 40 mg Cap-DR, 40 mg= 1 cap(s), Oral, Daily, 1 refills phentermine 37.5 mg Tab, 37.5 mg= 1 tab(s), Oral, Daily Trulicity Pen 4.5 mg/0.5 mL subcutaneous solution, 4.5 mg, SubCutaneous, qWeek Allergies No Known Allergies Social History Alcohol Current, Beer, 04/28/2022 Substance Abuse Current, 04/28/2022 Tobacco Former smoker, quit more than 30 days ago Tobacco Use:. Never Smokeless Tobacco Use:. Cigarettes, 03/20/2023 Former smokeless tobacco user, quit more than 30 days ago Smokeless Tobacco Use:. Cigarettes, 04/28/2022 Family History Diabetes mellitus type 2: Father. Hyperlipidemia: Mother and Father. Hypertension: Mother and Father. Immunizations Vaccine Date Status Comments influenza virus vaccine, inactivated 01/16/2023 Given influenza virus vaccine, inactivated 12/29/2021 Recorded SARS-CoV-2 (COVID-19) mRNA-1273 vaccine 01/25/2021 Recorded influenza virus vaccine, inactivated 01/01/2021 Recorded SARS-CoV-2 (COVID-19) Ad26 vaccine 05/22/2020 Recorded 2022-09-26: TPV21 influenza virus vaccine, inactivated 12/22/2019 Recorded diphtheria/pertussi s, acel/tetanus adult 09/09/2019 Recorded influenza virus vaccine, inactivated 02/03/2017 Recorded influenza virus vaccine, inactivated 01/21/2014 Recorded Normal [facility] Comment on above: Result Comment: Elec tronically Signed By: Siva ALMAZAN, Ramesh Yu\.br\Date and Time Signed: 03/20/23 07:26 EST Patient Educationon 03-20-19 24 Patient Education Nutrition BMI for Adults What is BMI? Body mass index (BMI) is a number that is calculated from a person's weight and height. BMI can help estimate how much of a person's weight is composed of fat. BMI does not measure body fat directly. Rather, it is an alternative to procedures that directly measure body fat, which can be difficult and expensive. BMI can help identify people who may be at higher risk for certain medical problems. What are BMI measurements used for? BMI is used as a screening tool to identify possible weight problems. It helps determine whether a person is obese, overweight, a healthy weight, or underweight. BMI is useful for: ? Identifying a weight problem that may be related to a medical condition or may increase the risk for medical problems. ? Promoting changes, such as changes in diet and exercise, to help reach a healthy weight. BMI screening can be repeated to see if these changes are working. How is BMI calculated? BMI involves measuring your weight in relation to your height. Both height and weight are measured, and the BMI is calculated from those numbers. This can be done either in [place]ian ([place] or metric measurements. Note that charts and online BMI calculators are available to help you find your BMI quickly and easily without having to do these calculations yourself. To calculate your BMI in [place] ([place] measurements: 1. Measure your weight in pounds (lb). 2. Multiply the number of pounds by 703. ? For example, for a person who weighs 180 lb, multiply that number by 703, which equals 126,540. 3. Measure your height in inches. Then multiply that number by itself to get a measurement called inches squared. ? For example, for a person who is 70 inches tall, the inches squared measurement is 70 inches x 70 inches, which equals 4,900 inches squared. 4. Divide the total from step 2 (number of lb x 703) by the total from step 3 (inches squared): 126,540 ? 4,900 = 25.8. This is your BMI. To calculate your BMI in metric measurements: 1. Measure your weight in kilograms (kg). 2. Measure your height in meters (m). Then multiply that number by itself to get a measurement called meters squared. ? For example, for a person who is 1.75 m tall, the meters squared measurement is 1.75 m x 1.75 m, which is equal to 3.1 meters squared. 3. Divide the number of kilograms (your weight) by the meters squared number. In this example: 70 ? 3.1 = 22.6. This is your BMI. What do the results mean? BMI charts are used to identify whether you are underweight, normal weight, overweight, or obese. The following guidelines will be used: ? Underweight: BMI less than 18.5. ? Normal weight: BMI between 18.5 and 24.9. ? Overweight: BMI between 25 and 29.9. ? Obese: BMI of 30 or above. Keep these notes in mind: ? Weight includes both fat and muscle, so someone with a muscular build, such as an athlete, may have a BMI that is higher than 24.9. In cases like these, BMI is not an accurate measure of body fat. ? To determine if excess body fat is the cause of a BMI of 25 or higher, further assessments may need to be done by a health care provider. ? BMI is usually interpreted in the same way for men and women. Where to find more information For more information about BMI, including tools to quickly calculate your BMI, go to these websites: ? Centers for Disease Control and Prevention: www.cdc.gov ? [place] Heart Association: www.heart.org ? National Heart, Lung, and Blood [place]: www.nhlbi.nih.gov Summary ? Body mass index (BMI) is a number that is calculated from a person's weight and height. ? BMI may help estimate how much of a person's weight is composed of fat. BMI can help identify those who may be at higher risk for certain medical problems. ? BMI can be measured using [place]ian measurements or metric measurements. ? BMI charts are used to identify whether you are underweight, normal weight, overweight, or obese. This information is not intended to replace advice given to you by your health care provider. Make sure you discuss any questions you have with your health care provider. Document Revised: 11/24/2019 Document Reviewed: 10/01/2019 [employer] Patient Education ? 2022 [employer] Normal [facility] CHEMISTRYOrdered By: SYSTEM SYSTEM on 10-11-2022 25-hydroxyvitamin D3 [Mass/Vol] 41.2 ng/mL Normal 30.0 - 100.0 ng/mL FT Remisol Albumin [Mass/Vol] 4.3 g/dL Normal 3.3 - 5.0 gm/dL [facility] Remisol Anion gap [Moles/Vol] 10 mmol/L Normal 6 - 16 mEq/L [facility] Remisol Calcium [Mass/Vol] 9.6 mg/dL Normal 8.9 - 11. 1 mg/dL FT [facility]isol Chloride [Moles/Vol] 106 mmol/L Normal 101 - 1 11 mmol/L [facility] Remisol Cholesterol [Mass/Vol] 244 mg/dL High 120 - 200 mg/dL [facility] Cholesterol in HDL [Mass/Vol] 56 mg/dL Invalid Interpretation Code [facility] Cholesterol in LDL [Mass/Vol] 171 mg/dL High <=129mg/dL [facility] Cholesterol in VLDL [Mass/Vol] 30 mg/dL Normal 7 - 40 mg/dL [facility] CO2 [Moles/Vol] 25 mmol/L Normal 21 - 31 mmol/L [facility] Creatinine [Mass/Vol] 0.7 mg/dL Normal 0.5 - 1.3 mg/d L FT Remisol GFR/1.73 sq M.predicted among non-blacks MDRD (S/P/Bld) [Vol rate/Area] 113 mL/min/1.73 m2 Normal >=59mL/min/1.73 m2 [facility] Chem S Glucose [Mass/Vol] 138 mg/dL Normal 55 - 199 mg/dL [facility] Remisol Phosphate [Mass/Vol] 3.4 mg/dL Normal 1.9 - 4.6 mg/dL FT Remisol Potassium [Moles/Vol] 4.4 mmol/L Normal 3.5 - 5.3 mmol/L [facility] Remisol Sodium [Moles/Vol] 137 mmol/L Normal 135 - 145 mmol/L [facility]isol Triglyceride [Mass/Vol] 152 mg/dL High <=149mg/dL FT Remisol Urea nitrogen [Mass/Vol] 16 mg/dL Normal 5 - 21 mg/dL [facility] Urea nitrogen/Creatinine [Mass ratio] 23 mg/mg High 10 - 20 [facility] Remisol CHEMISTRYOrdered By: Laxmi Clemens on 10-11-2022 Albumin DL <= 20 mg/L (U) [Mass/Vol] 5.7 microgram/mL Normal 0.0 - 19.0 mcg/mL FT Remisol Creatinine (U) [Mass/Vol] 143.0 mg/dL Invalid Interpretation Code [facility] Remisol Microalb/Cr Ratio 4.0 mg/gm Cr Normal 0.0 - 30.0 mg/gm Cr FT Remisol GLYCOHEMOGLOBIN A1Con 2022 ADA RECOMMENDATION SEE BELOW Normal [facility] Comment on above: Result Comment: ADA RECOMMENDED LIMIT 4.0 - 6.0 ADA THERAPEUTIC TARGET < 7.0 ACTION SUGGESTED > 7.0 Performed By: #### A 1C #### [facility] [address] [place] [address] Dr. Roberto Butler Glucose [Mass/Vol] 309 mg/dL Normal [facility] Comment on above: Performed By: #### A 1C #### [facility] [address] [address] [address] Roberto Butler HbA1c (Bld) [Mass fraction] 12.4 % Critically high 4.5-6.2 [facility] Comment on above: Performed By: #### A 1C #### [facility] [address] [place] [address] Dr. Roberto Butler LIPID PROFILEon 05-17-2022 CHOL-HDL RATIO NORM SEE BELOW Normal [facility] Comment on above: Result Comment: 3.3 - 4.4 LOW RISK 4.4 - 7.1 AVERAGE RISK 7.1 - 11.0 MODERATE RISK >11.0 HIGH RISK Performed By: #### C MP, LIPID #### [facility] [address] [address] [address] Roberto Butler Cholesterol [Mass/Vol] 212 mg/dL Critically high <=200 [facility] Comment on above: Performed By: #### C MP, LIPID #### [facility] [address] [address] [address] Roberto Butler Cholesterol in HDL [Mass/Vol] 39 mg/dL Critically low 40-60 [facility] Comment on above: Performed By: #### C MP, LIPID #### [facility] [address] [address] [address] Roberto Butler Cholesterol in LDL [Mass/Vol] 139.6 mg/dL Normal [facility] Comment on above: Performed By: #### C MP, LIPID #### [facility] [address] [place] [address] Dr. Roberto Butler Cholesterol.total/Cho lesterol in HDL [Mass ratio] 5.4 {ratio} Normal [facility] Comment on above: Performed By: #### C MP, LIPID #### [facility] [address] [address] [address] Roberto Butler HDL NORMAL > or = 60 mg/dl - LOW CARDIOVASCULAR RISK <40 mg/dl - HIGH CARDIOVASCULAR RISK Normal [facility] Comment on above: Performed By: #### C MP, LIPID #### [facility] [address] [address] [address] Roberto Butler LDL CALC NORMAL SEE BELOW Normal [facility] Comment on above: Result Comment: <100 mg/dl OPTIMAL 100 - 129 mg/dl NEAR OR ABOVE OPTIMAL 130 - 159 mg/dl BORDERLINE HIGH 160 - 189 mg/dl HIGH >190 mg/dl VERY HIGH Performed By: #### C MP, LIPID #### [facility] [address] [address] [address] Roberto Butler Triglyceride [Mass/Vol] 167 mg/dL Critically high <=150 [facility] Comment on above: Performed By: #### C MP, LIPID #### [facility] [address] [address] [address] Roberto Butler VLDL CALC 33.4 mg/dL Normal [facility] Comment on above: Performed By: #### C MP, LIPID #### [facility] [address] [place] [address] Dr. Roberto Butler PROF 14(COMP METB)on 023 Albumin [Mass/Vol] 3.9 g/dL Normal 3.4-5.0 [facility] Comment on above: Performed By: #### C MP, LIPID #### [facility] [address] [place] [address] Dr. Roberto Butler Albumin/Globulin [Mass ratio] 1.3 {ratio} Normal [facility] Comment on above: Performed By: #### C MP, LIPID #### [facility] [address] [place] [address] Dr. Roberto Butler ALP [Catalytic activity/Vol] 84 U/L Normal 46-116 [facility] Comment on above: Performed By: #### C MP, LIPID #### [facility] [address] [place] [address] Dr. Roberto Butler ALT [Catalytic activity/Vol] 50 U/L Normal 14-59 [facility] Comment on above: Performed By: #### C MP, LIPID #### [facility] [address] [place] [address] Dr. Roberto Butler Anion gap [Moles/Vol] 13.9 mmol/L Normal [facility] Comment on above: Performed By: #### C MP, LIPID #### [facility] [address] [place] [address] Dr. Roberto Butler AST [Catalytic activity/Vol] 16 U/L Normal 15-37 [facility] Comment on above: Performed By: #### C MP, LIPID #### [facility] [address] [place] [address] Dr. Roberto Butler Bilirubin [Mass/Vol] 0.6 mg/dL Normal 0.2-1.0 [facility] Comment on above: Performed By: #### C MP, LIPID #### [facility] [address] [place] [address] Dr. Roberto Butler Calcium [Mass/Vol] 9.6 mg/dL Normal 8.5-10.1 [facility] Comment on above: Performed By: #### C MP, LIPID #### [facility] [address] [place] [address] Dr. Roberto Butler Chloride [Moles/Vol] 104 mmol/L Normal 98-107 [facility] Comment on above: Performed By: #### C MP, LIPID #### [facility] [address] [place] [address] Dr. Roberto Butler CO2 [Moles/Vol] 27.4 mmol/L Normal 21.0-32.0 [facility] Comment on above: Performed By: #### C MP, LIPID #### [facility] [address] [place] [address] Dr. Roberto Butler Creatinine [Mass/Vol] 0.68 mg/dL Normal 0.55-1.02 [facility] Comment on above: Performed By: #### C MP, LIPID #### [facility] [address] [place] [address] Dr. Robetro Butler EGFR-AF [place] >60 Normal >=60 [facility] Comment on above: Performed By: #### C MP, LIPID #### [facility] [address] [place] [address] Dr. Roberto Butler EGFR-NON AF [place] >60 Normal >=60 [facility] Comment on above: Performed By: #### C MP, LIPID #### [facility] [address] [place] [address] Dr. Roberto Butler Globulin (S) [Mass/Vol] 3.0 g/dL Normal [facility] Comment on above: Performed By: #### C MP, LIPID #### [facility] [address] [place] [address] Dr. Roberto Butler Glucose [Mass/Vol] 326 mg/dL Critically high 74-106 [facility] Comment on above: Performed By: #### C MP, LIPID #### [facility] [address] [place] [address] Dr. Roberto Butler Potassium [Moles/Vol] 4.3 mmol/L Normal 3.5-5.1 [facility] Comment on above: Performed By: #### C MP, LIPID #### [facility] [address] [address] [address] Roberto Butler Protein [Mass/Vol] 6.9 g/dL Normal 6.4-8.2 [facility] Comment on above: Performed By: #### C MP, LIPID #### [facility] [address] [address] [address] Roberto Butler Sodium [Moles/Vol] 141 mmol/L Normal 136-145 [facility] Comment on above: Performed By: #### C MP, LIPID #### [facility] [address] [place] [address] Dr. Roberto Butler Urea nitrogen [Mass/Vol] 14.0 mg/dL Normal 7.0-18.0 [facility] Comment on above: Performed By: #### C MP, LIPID #### [facility] [address] [place] [address] Dr. Roberto Butler Urea nitrogen/Creatinine [Mass ratio] 20.6 mg/mg Normal [facility] Comment on above: Performed By: #### C MP, LIPID #### [facility] [address] [place] [address] Dr. Roberto Butler MICRO OTHER TESTSOrdered By: Mihai Reyes on 04-28-2022 Influenzae A Ag Negative (04/28/22 2:01 AM) Normal Negative [facility] Man Sero Influenzae B Ag Negative (04/28/22 2:01 AM) Normal Negative FT [facility] Rapid COV Int NEG Ctl Pass (04/28/22 2:01 AM) Normal FT Man Sero Rapid COV Int POS Ctl Pass (04/28/22 2:01 AM) Normal [facility] Man Sero SARS-CoV+SARS-CoV-2 (COVID-19) Ag IA.rapid Ql (Resp) Not Detected (04/28/22 2:01 AM) Normal Not Detected FT Man [facility] LIPID PROFILEon 12-24-2021 CHOL-HDL RATIO NORM SEE BELOW Normal [facility] Comment on above: Result Comment: 3.3 - 4.4 LOW RISK 4.4 - 7.1 AVERAGE RISK 7.1 - 11.0 MODERATE RISK >11.0 HIGH RISK Performed By: #### C MP, LIPID #### [facility] [address] [address] [address] Roberto Butler Cholesterol [Mass/Vol] 200 mg/dL Normal <=200 [facility] Comment on above: Performed By: #### C MP, LIPID #### [facility] [address] [address] [address] Roberto Butler Cholesterol in HDL [Mass/Vol] 36 mg/dL Critically low 40-60 [facility] Comment on above: Performed By: #### C MP, LIPID #### [facility] [address] [place] [address] Dr. Roberto Butler Cholesterol in LDL [Mass/Vol] 84.8 mg/dL Normal [facility] Comment on above: Performed By: #### C MP, LIPID #### [facility] [address] [place] [address] Dr. Roberto Butler Cholesterol.total/Cho lesterol in HDL [Mass ratio] 5.6 {ratio} Normal [facility] Comment on above: Performed By: #### C MP, LIPID #### [facility] [address] [place] [address] Dr. Roberto Butler HDL NORMAL > or = 60 mg/dl - LOW CARDIOVASCULAR RISK <40 mg/dl - HIGH CARDIOVASCULAR RISK Normal [facility] Comment on above: Performed By: #### C MP, LIPID #### [facility] [address] [place] [address] Dr. Roberto Butler LDL CALC NORMAL SEE BELOW Normal [facility] Comment on above: Result Comment: <100 mg/dl OPTIMAL 100 - 129 mg/dl NEAR OR ABOVE OPTIMAL 130 - 159 mg/dl BORDERLINE HIGH 160 - 189 mg/dl HIGH >190 mg/dl VERY HIGH Performed By: #### C MP, LIPID #### [facility] [address] [place] [address] Dr. Roberto Butler Triglyceride [Mass/Vol] 396 mg/dL Critically high <=150 [facility] Comment on above: Performed By: #### C MP, LIPID #### [facility] [address] [address] [address] Roberto Butler VLDL CALC 79.2 mg/dL Normal [facility] Comment on above: Performed By: #### C MP, LIPID #### [facility] [address] [address] [address] Roberto Butler PROF 14(COMP METB)on 022 Albumin [Mass/Vol] 3.7 g/dL Normal 3.4-5.0 [facility] Comment on above: Performed By: #### C MP, LIPID #### [facility] [address] [place] [address] Dr. Roberto Butler Albumin/Globulin [Mass ratio] 1.2 {ratio} Normal [facility] Comment on above: Performed By: #### C MP, LIPID #### [facility] [address] [place] [address] Dr. Roberto Butler ALP [Catalytic activity/Vol] 118 U/L Critically high 46-116 [facility] Comment on above: Performed By: #### C MP, LIPID #### [facility] [address] [place] [address] Dr. Roberto Butler ALT [Catalytic activity/Vol] 48 U/L Normal 14-59 [facility] Comment on above: Performed By: #### C MP, LIPID #### [facility] [address] [place] [address] Dr. Roberto Butler Anion gap [Moles/Vol] 12.8 mmol/L Normal [facility] Comment on above: Performed By: #### C MP, LIPID #### [facility] [address] [place] [address] Dr. Roberto Butler AST [Catalytic activity/Vol] 12 U/L Critically low 15-37 [facility] Comment on above: Performed By: #### C MP, LIPID #### [facility] [address] [place] [address] Dr. Roberto Butler Bilirubin [Mass/Vol] 0.4 mg/dL Normal 0.2-1.0 [facility] Comment on above: Performed By: #### C MP, LIPID #### [facility] [address] [address] [address] Roberto Butler Calcium [Mass/Vol] 9.1 mg/dL Normal 8.5-10.1 [facility] Comment on above: Performed By: #### C MP, LIPID #### [facility] [address] [address] [address] Roberto Butler Chloride [Moles/Vol] 101 mmol/L Normal 98-107 [facility] Comment on above: Performed By: #### C MP, LIPID #### [facility] [address] [address] [address] Roberto Butler CO2 [Moles/Vol] 24.2 mmol/L Normal 21.0-32.0 [facility] Comment on above: Performed By: #### C MP, LIPID #### [facility] [address] [place] [address] Dr. Roberto Butler Creatinine [Mass/Vol] 0.78 mg/dL Normal 0.55-1.02 [facility] Comment on above: Performed By: #### C MP, LIPID #### [facility] [address] [place] [address] Dr. Roberto Butler EGFR-AF EAST TIMORESE >60 Normal >=60 [facility] Comment on above: Performed By: #### C MP, LIPID #### [facility] [address] [place] [address] Dr. Roberto Butler EGFR-NON AF EAST [place]ESE >60 Normal >=60 [facility] Comment on above: Performed By: #### C MP, LIPID #### [facility] [address] [address] [address] Roberto Butler Globulin (S) [Mass/Vol] 3.1 g/dL Normal [facility] Comment on above: Performed By: #### C MP, LIPID #### [facility] [address] [address] [address] Roberto Butler Glucose [Mass/Vol] 337 mg/dL Critically high 74-106 [facility] Comment on above: Performed By: #### C MP, LIPID #### [facility] [address] [address] [address] Roberto Butler Potassium [Moles/Vol] 4.0 mmol/L Normal 3.5-5.1 [facility] Comment on above: Performed By: #### C MP, LIPID #### [facility] [address] [address] [address] Roberto Bulter Protein [Mass/Vol] 6.8 g/dL Normal 6.4-8.2 [facility] Comment on above: Performed By: #### C MP, LIPID #### [facility] [address] [address] [address] Roberto Butler Sodium [Moles/Vol] 134 mmol/L Critically low 136-145 [facility] Comment on above: Performed By: #### C MP, LIPID #### [facility] [address] [place] [address] Dr. Roberto Butler Urea nitrogen [Mass/Vol] 14.0 mg/dL Normal 7.0-18.0 [facility] Comment on above: Performed By: #### C MP, LIPID #### [facility] [address] [place] [address] Dr. Roberto Butler Urea nitrogen/Creatinine [Mass ratio] 17.9 mg/mg [facility] Comment on above: Performed By: #### C MP, LIPID #### [facility] [address] [place] [address] Dr. Roberto Butler PAP ACOG PANEL 2: 30 to 65on 09-28-2021 . . [facility] Comment on above: Result Comment: Perf ormed at: WB Performed By: #### C MP, LIPID #### [facility] [address] [place] [address] Dr. Roberto Butler Age Gdln ACOG Testing - [facility] Comment on above: Performed By: #### C MP, LIPID #### [facility] [address] [place] [address] Dr. Roberto Butler DIAGNOSIS: Comment [facility] Comment on above: Result Comment: NEGA TIVE FOR INTRAEPITHELIAL LESION OR MALIGNANCY. Performed at: [facility] Performed By: #### C MP, LIPID #### [facility] [address] [place] [address] Dr. Roberto Butler HPV Aptima Negative Normal Negative [facility] Comment on above: Result Comment: This nucleic acid amplification test detects fourteen high-risk HPV types (16,18,31,33,35,39,45,51,52,56,58,59,66,68) without differentiation. Performed at: =G Performed By: #### C MP, LIPID #### [facility] [address] [place] [address] Dr. Roberto Butler Methodology: Comment Normal [facility] Comment on above: Result Comment: This liquid based ThinPrep(R) pap test was screened with the use of an image guided system. Performed at: [facility] Performed By: #### C MP, LIPID #### [facility] [address] [place] [address] Dr. Roberto Butler Note: Comment Normal [facility] Comment on above: Result Comment: The Pap smear is a screening test designed to aid in the detection of premalignant and malignant conditions of the uterine cervix. It is not a diagnostic procedure and should not be used as the sole means of detecting cervical cancer. Both false-positive and false-negative reports do occur. . Performed at: WB Performed By: #### C MP, LIPID #### [facility] [address] [place] [address] Dr. Roberto Butler Performed by: Comment Normal [facility] Comment on above: Result Comment: Tommy Warren, Drawing Machine Operator (ASCP) Performed at: WB Performed By: #### C MP, LIPID #### [facility] [address] [place] [address] Dr. Roberto Butler Specimen adequacy: Comment Normal [facility] Comment on above: Result Comment: Sati sfactory for evaluation. Performed at: WB Performed By: #### C MP, LIPID #### [facility] [address] [place] [address] Dr. Roberto Butler Covid-19 PCR (CVDTB)on 08-16 SARS-CoV-2 (COVID-19) RNA WAN+probe Ql (Unsp spec) Not detected Normal NOT DETECTED [facility] Comment on above: Result Comment: This test is not yet approved or cleared by the [place] FDA. When there are no FDA-approved or cleared tests available, and other criteria are met, FDA can make tests available under an emergency access mechanism called an Emergency Use Authorization (EUA). The EUA for this test is supported by the [place] of Health and Human Service's (HHS's) declaration that circumstances exist to justify the emergency use of in vitro diagnostics for the detection and/or diagnosis of the virus that causes COVID-19. This EUA will remain in effect (meaning this test can be used) for the duration of the COVID-19 declaration justifying emergency of IVDs, unless it is terminated or revoked by FDA (after which the test may no longer be used). When diagnostic testing is negative, the possibility of a false negative should be considered in the context of a patient's recent exposures and the presence of clinical signs and symptoms consistent with SARS-CoV-2. Performed By: #### C VDTB #### [facility] [address] [place] [address] Dr. Roberto Butler CBC AUTO DIFFon 08-20-2021 BASO # 0.1 103/ul Normal 0.0-0.1 [facility] Comment on above: Performed By: #### C BC #### [facility] [address] [place] [address] Dr. Roberto Butler Basophils/100 WBC (Bld) 0.8 % Normal 0.2-2.0 [facility] Comment on above: Performed By: #### C BC #### [facility] [address] [place] [address] Dr. Roberto Butler EO # 0.1 103/ul Normal 0.0-0.7 [facility] Comment on above: Performed By: #### C BC #### [facility] [address] [place] [address] Dr. Roberto Butler Eosinophils/100 WBC (Bld) 1.8 % Normal 0.9-7.0 [facility] Comment on above: Performed By: #### C BC #### [facility] [address] [place] [address] Dr. Roberto Butler Erythrocyte distribution width (RBC) [Ratio] 12.2 % Normal 11.0-15.0 [facility] Comment on above: Performed By: #### C BC #### [facility] [address] [place] [address] Dr. Roberto Butler Hematocrit (Bld) [Volume fraction] 43.8 % Normal 36.0-48.0 [facility] Comment on above: Performed By: #### C BC #### [facility] [address] [place] [address] Dr. Roberto Butler Hemoglobin (Bld) [Mass/Vol] 14.1 g/dL Normal 12.0-16.0 [facility] Comment on above: Performed By: #### C BC #### [facility] [address] [place] [address] Dr. Roberto Butler IG # 0.03 10e3/ul Normal 0.00-0.03 [facility] Comment on above: Performed By: #### C BC #### [facility] [address] [place] [address] Dr. Roberto Butler IG % 0.4 % Normal 0.0-0.5 [facility] Comment on above: Performed By: #### C BC #### [facility] [address] [place] [address] Dr. Roberto Butler LYMPH # 2.5 103/ul Normal 1.2-3.8 [facility] Comment on above: Performed By: #### C BC #### [facility] [address] [place] [address] Dr. Roberto Butler Lymphocytes/100 WBC (Bld) 32.6 % Normal 20.5-60.0 [facility] Comment on above: Performed By: #### C BC #### [facility] [address] [place] [address] Dr. Roberto Butler MANUAL DIFF REQ NO Normal [facility] Comment on above: Performed By: #### C BC #### [facility] [address] [place] [address] Dr. Roberto Butler MCH (RBC) [Entitic mass] 29.2 pg Normal 26.7-34.0 [facility] Comment on above: Performed By: #### C BC #### [facility] [address] [place] [address] Dr. Roberto Butler MCHC (RBC) [Mass/Vol] 32.2 g/dL Normal 29.9-35.2 [facility] Comment on above: Performed By: #### C BC #### [facility] [address] [place] [address] Dr. Roberto Butler MCV (RBC) [Entitic vol] 90.7 fL Normal 81.0-99.0 [facility] Comment on above: Performed By: #### C BC #### [facility] [address] [place] [address] Dr. Roberto Butler MONO # 0.5 103/ul Normal 0.3-0.8 [facility] Comment on above: Performed By: #### C BC #### [facility] [address] [place] [address] Dr. Roberto Butler Monocytes/100 WBC (Bld) 6.8 % Normal 1.7-12.0 [facility] Comment on above: Performed By: #### C BC #### [facility] [address] [place] [address] Dr. Roberto Butler NEUT # 4.5 103/ul Normal 1.4-6.5 [facility] Comment on above: Performed By: #### C BC #### [facility] [address] [place] [address] Dr. Roberto Butler Neutrophils/100 WBC (Bld) 57.6 % Normal 43.0-75.0 [facility] Comment on above: Performed By: #### C BC #### [facility] [address] [place] [address] Dr. Roberto Butler Platelet mean volume (Bld) [Entitic vol] 8.3 fL Critically low 9.5-13.5 [facility] Comment on above: Performed By: #### C BC #### [facility] [address] [place] [address] Dr. Roberto Butler PLT 272 103/ul Normal 150-450 [facility] Comment on above: Performed By: #### C BC #### [facility] [address] [place] [address] Dr. Roberto Butler RBC 4.83 106/ul Normal 4.20-5.40 [facility] Comment on above: Performed By: #### C BC #### [facility] [address] [place] [address] Dr. Roberto Butler WBC 7.8 103/ul Normal 4.0-11.0 [facility] Comment on above: Performed By: #### C BC #### [facility] [address] [place] [address] Dr. Roberto Butler GLYCOHEMOGLOBIN A1Con 2021 ADA RECOMMENDATION SEE BELOW Normal [facility] Comment on above: Result Comment: ADA RECOMMENDED LIMIT 4.0 - 6.0 ADA THERAPEUTIC TARGET < 7.0 ACTION SUGGESTED > 7.0 Performed By: #### C MP, LIPID #### [facility] [address] [place] [address] Dr. Roberto Butler Glucose [Mass/Vol] 166 mg/dL Normal [facility] Comment on above: Performed By: #### C MP, LIPID #### [facility] [address] [place] [address] Dr. Roberto Butler HbA1c (Bld) [Mass fraction] 7.4 % Critically high 4.5-6.2 [facility] Comment on above: Performed By: #### C MP, LIPID #### [facility] [address] [place] [address] Dr. Roberto Butler LIPID PROFILEon 08-20-2021 CHOL-HDL RATIO NORM SEE BELOW Normal [facility] Comment on above: Result Comment: 3.3 - 4.4 LOW RISK 4.4 - 7.1 AVERAGE RISK 7.1 - 11.0 MODERATE RISK >11.0 HIGH RISK Performed By: #### L IPID, CMP #### [facility] [address] [place] [address] Dr. Roberto Butler Cholesterol [Mass/Vol] 229 mg/dL Critically high <=200 [facility] Comment on above: Performed By: #### L IPID, CMP #### [facility] [address] [address] [address] Roberto Butler Cholesterol in HDL [Mass/Vol] 44 mg/dL Normal 40-60 [facility] Comment on above: Performed By: #### L IPID, CMP #### [facility] [address] [address] [address] Roberto Butler Cholesterol in LDL [Mass/Vol] 154.0 mg/dL Normal [facility] Comment on above: Performed By: #### L IPID, CMP #### [facility] [address] [address] [address] Roberto Butler Cholesterol.total/Cho lesterol in HDL [Mass ratio] 5.2 {ratio} Normal [facility] Comment on above: Performed By: #### L IPID, CMP #### [facility] [address] [address] [address] Roberto Butler HDL NORMAL > or = 60 mg/dl - LOW CARDIOVASCULAR RISK <40 mg/dl - HIGH CARDIOVASCULAR RISK Normal [facility] Comment on above: Performed By: #### L IPID, CMP #### [facility] [address] [address] [address] Roberto Butler LDL CALC NORMAL SEE BELOW Normal [facility] Comment on above: Result Comment: <100 mg/dl OPTIMAL 100 - 129 mg/dl NEAR OR ABOVE OPTIMAL 130 - 159 mg/dl BORDERLINE HIGH 160 - 189 mg/dl HIGH >190 mg/dl VERY HIGH Performed By: #### L IPID, CMP #### [facility] [address] [address] [address] Roberto Butler Triglyceride [Mass/Vol] 154 mg/dL Critically high <=150 [facility] Comment on above: Performed By: #### L IPID, CMP #### [facility] [address] [address] [address] Roberto Butler VLDL CALC 30.8 mg/dL Normal [facility] Comment on above: Performed By: #### L IPID, CMP #### [facility] [address] [address] [address] Roberto Butler MICROALBUMIN, RAND URon -0 mALB 3.1 mg/L Normal <=30.0 [facility] Comment on above: Performed By: #### M ALBR #### [facility] [address] [address] [address] Roberto Butler PROF 14(COMP METB)on 022 Albumin [Mass/Vol] 3.6 g/dL Normal 3.4-5.0 [facility] Comment on above: Performed By: #### L IPID, CMP #### [facility] [address] [place] [address] Dr. Roberto Butler Albumin/Globulin [Mass ratio] 1.1 {ratio} Normal [facility] Comment on above: Performed By: #### L IPID, CMP #### [facility] [address] [place] [address] Dr. Roberto Butler ALP [Catalytic activity/Vol] 70 U/L Normal 46-116 [facility] Comment on above: Performed By: #### L IPID, CMP #### [facility] [address] [place] [address] Dr. Roberto Butler ALT [Catalytic activity/Vol] 67 U/L Critically high 14-59 [facility] Comment on above: Performed By: #### L IPID, CMP #### [facility] [address] [address] [address] Roberto Butler Anion gap [Moles/Vol] 15.8 mmol/L Normal [facility] Comment on above: Performed By: #### L IPID, CMP #### [facility] [address] [address] [address] Roberto Butler AST [Catalytic activity/Vol] 20 U/L Normal 15-37 [facility] Comment on above: Performed By: #### L IPID, CMP #### [facility] [address] [place] [address] Dr. Roberto Butler Bilirubin [Mass/Vol] 0.5 mg/dL Normal 0.2-1.0 [facility] Comment on above: Performed By: #### L IPID, CMP #### [facility] [address] [address] [address] Roberto Butler Calcium [Mass/Vol] 8.8 mg/dL Normal 8.5-10.1 [facility] Comment on above: Performed By: #### L IPID, CMP #### [facility] [address] [address] [address] Roberto Butler Chloride [Moles/Vol] 101 mmol/L Normal 98-107 [facility] Comment on above: Performed By: #### L IPID, CMP #### [facility] [address] [place] [address] Dr. Roberto Butler CO2 [Moles/Vol] 24.7 mmol/L Normal 21.0-32.0 [facility] Comment on above: Performed By: #### L IPID, CMP #### [facility] [address] [place] [address] Dr. Roberto Butler Creatinine [Mass/Vol] 0.73 mg/dL Normal 0.55-1.02 [facility] Comment on above: Performed By: #### L IPID, CMP #### [facility] [address] [place] [address] Dr. Roberto Butler EGFR-AF EAST [place]ESE >60 Normal >=60 [facility] Comment on above: Performed By: #### L IPID, CMP #### [facility] [address] [place] [address] Dr. Roberto Butler EGFR-NON AF EAST [place] >60 Normal >=60 [facility] Comment on above: Performed By: #### L IPID, CMP #### [facility] [address] [place] [address] Dr. Roberto Butler Globulin (S) [Mass/Vol] 3.2 g/dL Normal [facility] Comment on above: Performed By: #### L IPID, CMP #### [facility] [address] [place] [address] Dr. Roberto Butler Glucose [Mass/Vol] 221 mg/dL Critically high 74-106 [facility] Comment on above: Performed By: #### L IPID, CMP #### [facility] [address] [place] [address] Dr. Roberto Butler Potassium [Moles/Vol] 4.2 mmol/L Normal 3.5-5.1 [facility] Comment on above: Performed By: #### L IPID, CMP #### [facility] [address] [place] [address] Dr. Roberto Butler Protein [Mass/Vol] 6.8 g/dL Normal 6.4-8.[address] [facility] Comment on above: Performed By: #### L IPID, CMP #### [facility] [address] [place] [address] Dr. Roberto Butler Sodium [Moles/Vol] 137 mmol/L Normal 136-145 [facility] Comment on above: Performed By: #### L IPID, CMP #### [facility] [address] [place] [address] Dr. Roberto Butler Urea nitrogen [Mass/Vol] 11.0 mg/dL Normal 7.0-18.0 [facility] Comment on above: Performed By: #### L IPID, CMP #### [facility] [address] [place] [address] Dr. Roberto Butler Urea nitrogen/Creatinine [Mass ratio] 15.1 mg/mg Normal [facility] Comment on above: Performed By: #### L IPID, CMP #### [facility] [address] [place] [address] Dr. Roberto Butler UA RANDOM W/MICROSCOPICon AMORPHOUS CRYSTALS MANY Normal [facility] Comment on above: Performed By: #### C MP, LIPID #### [facility] [address] [place] [address] Dr. Roberto Butler BACTERIA TRACE Abnormal NONE SEEN [facility] Comment on above: Performed By: #### C MP, LIPID #### [facility] [address] [place] [address] Dr. Roberto Butler Bilirubin Ql (U) Negative Normal NEGATIVE [facility] Comment on above: Performed By: #### C MP, LIPID #### [facility] [address] [address] [address] Roberto Butler CAST NONE SEEN Normal NONE SEEN [facility] Comment on above: Performed By: #### C MP, LIPID #### [facility] [address] [address] [address] Roberto Butler Clarity (U) TURBID Abnormal CLEAR [facility] Comment on above: Performed By: #### C MP, LIPID #### [facility] [address] [address] [address] Roberto Butler Color (U) YELLOW Normal YELLOW [facility] Comment on above: Performed By: #### C MP, LIPID #### [facility] [address] [place] [address] Dr. Roberto Butler Crystals LM Nom (Urine sed) SEEN Abnormal NONE SEEN [facility] Comment on above: Performed By: #### C MP, LIPID #### [facility] [address] [place] [address] Dr. Roberto Butler Epithelial cells LM Ql (Urine sed) FEW Abnormal NONE SEEN /RARE [facility] Comment on above: Performed By: #### C MP, LIPID #### [facility] [address] [place] [address] Dr. Roberto Butler Glucose Ql (U) Negative Normal NEGATIVE [facility] Comment on above: Performed By: #### C MP, LIPID #### [facility] [address] [address] [address] Roberto Butler Hemoglobin Ql (U) Negative Normal NEGATIVE [facility] Comment on above: Performed By: #### C MP, LIPID #### [facility] [address] [address] [address] Roberto Butler Ketones Ql (U) TRACE Abnormal NEGATIVE [facility] Comment on above: Performed By: #### C MP, LIPID #### [facility] [address] [place] [address] Dr. Roberto Butler LEUKOCYTES Negative Normal NEGATIVE [facility] Comment on above: Performed By: #### C MP, LIPID #### [facility] [address] [address] [address] Roberto Butler MUCOUS TRACE Abnormal NONE SEEN [facility] Comment on above: Performed By: #### C MP, LIPID #### [facility] [address] [address] [address] Roberto Butler Nitrite Ql (U) Negative Normal NEGATIVE [facility] Comment on above: Performed By: #### C MP, LIPID #### [facility] [address] [place] [address] Dr. Roberto Butler pH (U) 5.5 [pH] Normal 5-9 [facility] Comment on above: Performed By: #### C MP, LIPID #### [facility] [address] [place] [address] Dr. Roberto Butler RBC 0-2 Normal 0-2 [facility] Comment on above: Performed By: #### C MP, LIPID #### [facility] [address] [place] [address] Dr. Roberto Butler SPEC GRAVITY >=1.030 Abnormal 1.005-<=1.025 [facility] Comment on above: Performed By: #### C MP, LIPID #### [facility] [address] [place] [address] Dr. Roberto Butler UA PROTEIN TRACE Normal NEGATIVE/ TRACE [facility] Comment on above: Performed By: #### C MP, LIPID #### [facility] [address] [place] [address] Dr. Roberto Butler Urobilinogen Qn (U) 0.2 {Laurita'U}/dL Normal 0.2 - 1. 0 [facility] Comment on above: Performed By: #### C MP, LIPID #### [facility] [address] [address] [address] Roberto Butler WBC NONE SEEN Normal NONE SEEN [facility] Comment on above: Performed By: #### C MP, LIPID #### [facility] [address] [place] [address] Dr. Roberto Butler XR shoulder RT min 2V*on XR shoulder RT min 2V* [facility] [place] [address] XRay Report Signed Patient: Se Wolf MR#: [id number] : 1985 Acct:[id number] Age/Sex: 35 / F ADM Date: 12/26/20 Loc: SOX Room: Type: [facility] Attending Dr: Cortez Nayak MD Ordering Provider: Cortez Nayak MD Date of Service: 12/26/20 XR/XR shoulder RT min 2V*: Acute pain of right shoulder Copies to: Cortez Nayak MD XR shoulder RT min 2V* 12/26/2020 9:12 AM SIGNS AND SYMPTOMS: Right anterior shoulder pain with pain on abduction PROTOCOL: Frontal, scapular Y, axillary, and Grashey views of the right shoulder COMPARISON: None FINDINGS: The glenohumeral joint and acromial clavicular joint are preserved. There is no evidence of fracture or dislocation. The visualized right hemithorax is grossly intact. XR/XR shoulder RT min 2V* IMPRESSION: No fracture or dislocation. No significant degenerative change. Impression dictated by: Darnell Fischer M.D.12/26/2020 1:47 PM Dictation Location: [place] [address] Transcribed By: [facility] 12/26/20 1347 Dictated By: Darnell Fischer II, MD 12/26/20 1346 Signed By: 12/26/20 1347 [facility] Vital Signs Date Time Vital Sign Value Performing Clinician Facility 2024 09:16050 Body height 160 cm Nathan Oh MD Work Phone: [facility] 2024 09:16-0500 Body mass index (BMI) [Ratio] 36.85 kg/m2 Nathan Oh MD Work Phone: [facility] 2024 09:16050 Body weight 94.35 kg Nathan Oh MD Work Phone: [facility] 2024 09:16-0500 Diastolic blood pressure 78 mm[Hg] Nathan Oh MD Work Phone: [facility] 2024 09:16-0500 Heart rate 93 /min Nathan Oh MD Work Phone: [facility] 2024 09:16-0500 Respiratory rate 18 /min Nathan Oh MD Work Phone: [facility] 2024 09:16-0500 Systolic blood pressure 104 mm[Hg] Nathan Oh MD Work Phone: [facility] 01-29-2024 08:35-0500 Body mass index (BMI) [Ratio] 35.02 kg/m2 Letty Kiara DO Work Phone: [facility] 01-29-2024 08:35-0500 Body weight 92.53 kg Letty Kiara DO Work Phone: [facility] 01-29-2024 08:35-0500 Diastolic blood pressure 78 mm[Hg] Letty Kiara DO Work Phone: [facility] 01-29-2024 08:35-0500 Systolic blood pressure 112 mm[Hg] Letty Kiara DO Work Phone: [facility] 04-28-2022 02:29-0500 Body temperature 100.58 [degF] Armin Leyda [facility] 04-28-2022 01:48-0500 Body temperature 100.4 [degF] Armin Leyda [facility] 04-28-2022 01:48-0500 Diastolic blood pressure 85 mm[Hg] Armin Leyda [facility] 04-28-2022 01:48-0500 Heart rate 123 /min Armin Leyda [facility] 04-28-2022 01:48-0500 Respiratory rate 20 /min Armin Leyda [facility] 04-28-2022 01:48-0500 SaO2% (BldA) [Mass fraction] 97 % Armin Crabtree [facility] 04-28-2022 01:48-0500 Systolic blood pressure 126 mm[Hg] Armin Crabtree [facility] 12-26-2020 10:00-0400 Body height 162.56 cm Cortez Nayak [facility] Other 12-26-2020 10:00-0400 Body mass index (BMI) [Ratio] 37.93 kg/m2 Cortez Fish [employer] [facility] Other 12-26-2020 10:00-0400 Body weight 100.25 kg Cortez Olexa [facility] Other Encounters Encounter Date Encounter Type Care Provider Facility Start: 01-31-2025 ambulatory MD Ramesh Pani[facility] ity:[facility] [place] Start: 12-07-2024 End: 12-07-2024 ambulatory CLINICAL RESEARCHER HAKEEM A JOURDAN Facility:[facility] [place] Start: 11-25-2024 End: 11-25-2024 ambulatory CLINICAL RESEARCHER HAKEEM A JOURDAN Facility:[facility] [place] Start: 09-14-2024 End: 09-14-2024 ambulatory CLINICAL RESEARCHER HAKEEM A JOURDAN Facility:[facility] [place] Start: 08-24-2024 End: 08-24-2024 ambulatory Ramesh Paniagua Facility:[facility] [place] [facility] Start: 08-10-2024 End: 08-10-2024 Lab Drop off Ramesh Paniagua [facility] Start: 08-10-2024 End: 08-10-2024 ambulatory MD Ramesh Paniagua Facility:[facility] [place] [facility] Start: 2024 End: 2024 Bamboo flowsheet Nathan Oh MD Work Phone: [facility] Start: 2024 End: 2024 Bamboo flowsheet Nathan Oh MD Work Phone: [facility] Start: 2024 End: 2024 Office outpatient visit 25 minutes Nathan Oh MD Work Phone: [facility] Comment on above: Type 2 diabetes irais itus with hyperglycemia, without long-term current use of insulin ([facility]) (Primary Dx); Vitamin D deficiency; Encounter for dietary consultation; Hyperlipemia, mixed ([facility]) Start: 2024 End: 2024 ambulatory NATHAN OH Not Available Start: 02-10-2024 End: 02-10-2024 ambulatory Ramesh Paniagua Facility:[facility] Start: 01-29-2024 End: 02-06-2024 Clinisync Result Encounter Letty Kiara DO Work Phone: [facility] External Department Unsolicited Start: 01-29-2024 End: 02-06-2024 Clinisync Result Encounter Letty Kiara DO Work Phone: [facility] External Department Unsolicited Start: 01-29-2024 End: 01-29-2024 Patient encounter procedure Letty Kiara DO Work Phone: [facility] Start: 01-29-2024 End: 01-29-2024 Periodic preventive med est patient 40-64yrs Letty Kiara DO Work Phone: [facility] Comment on above: Well woman exam with routine gynecological exam; Breast cancer screening by mammogram; Fibrocystic breast disease (FCBD), unspecified laterality; Encounter for screening mammogram for malignant neoplasm of breast Start: 01-29-2024 End: 01-29-2024 ambulatory LETTY KIARA Not Available Start: 10-22-2023 End: 10-22-2023 Lab Drop off HAKEEM SOLIMAN [facility] Start: 10-22-2023 End: 10-22-2023 ambulatory HAKEEM SOLIMAN Facility:[facility] Start: 07-24-2023 End: 07-24-2023 ambulatory Ramesh Paniagua Facility: [facility] Start: 06-05-2023 End: 06-05-2023 ambulatory Ramesh Paniagua Facility: [facility] [facility] Start: 05-29-2023 End: 05-29-2023 Lab Drop off Ramesh Paniagua [facility] Start: 05-29-2023 End: 05-29-2023 ambulatory Ramesh Paniagua Facility:[facility] Start: 04-24-2023 End: 04-24-2023 ambulatory Ramesh Paniagua Facility: [facility] Start: 04-03-2023 End: 04-03-2023 ambulatory LETTY ALMENDAREZ Not Available Start: 03-20-2023 End: 03-20-2023 ambulatory Ramesh Paniagua Facility: [facility] Start: 10-11-2022 End: 10-11-2022 Patient encounter procedure NATHAN Debra ADRIANO [facility] Start: 05-17-2022 End: 05-18-2022 ambulatory GREG BAKER Facility:[facility] Start: 04-28-2022 End: 04-28-2022 Emergency department patient visit Armin Crabtree [facility] Start: 12-24-2021 End: 12-25-2021 ambulatory GREG BAKER Facility:[facility] Start: 09-25-2021 End: 09-25-[address] LETTY ALMENDAREZ . Facility:[facility] Start: 09-04-2021 End: 09-04-2021 ambulatory SHAIKH Lemuel MATT Facility:[facility] Start: 08-20-2021 End: 08-21-2021 ambulatory GREG BAKER Facility:[facility] Start: 05-29-2021 End: 03-15-[address] DARNELL WILL Facility:[facility] Start: 12-26-2020 Office outpatient ne w 30 minutes Cortez Nayak [facility] Procedures Date Procedure Procedure Detail Performing Clinician Start: 2024 Gluc bld gluc mntr d ev cleared fda spec home use Nathan Oh MD Work Phone: Start: 01-29-2024 IGP,APTIMA HPV,AGE GDLN Letty Almendarez DO Work Phone: Start: 01-29-2024 Microscopic observat ion [Identifier] in Cervix by Cyto stain Nathan Oh MD Work Phone: Start: 07-28-2023 Mammography Letty guido DO Work Phone: Bilateral tubal ligation Jl Paniagua Comment on above: dr almendarez 2016 Hysterectomy Ramesh Paniagua Comment on above: dr almendarez 2018 Plan of Treatment Date Care Activity Detail Author Start: 01-28-2027 Screening for malignant neoplasm of cervix [facility] Start: 02-24-2025 ambulatory Ambulatory Facility:[facility] Start: 02-03-2025 End: 02-03-2025 Patient encounter procedure 02/03/2025 8:30 AM EST Office Visit [facility] [address] [place] [address] Letty Almendarez, DO [address] [place], [place] [id number] [facility] Start: 08-30-2024 End: 08-30-2024 Patient encounter procedure 08/30/2024 9:20 AM EDT Office Visit [facility] [address] [place] [id number] Nathan Oh MD [address] [place] [address] [facility] Start: 07-27-2024 Screening for malignant neoplasm of breast Mammogram [facility] Start: 2024 End: 2025 25-hydroxyvitamin D3 [Mass/volume] in Serum or Plasma Vitamin D 25 hydroxy Total Lab Routine Type 2 diabetes mellitus with hyperglycemia, without long-term current use of insulin ([facility]) Expected: 2024 (Approximate), Expires: 2025 [facility] Work Phone: Comment on above: Expected: 2024 (Approximate), Expires: 2025 Start: 2024 End: 2025 Lipid 1996 panel - Serum or Plasma Lipid panel Lab Routine Type 2 diabetes mellitus with hyperglycemia, without long-term current use of insulin ([facility]) Expected: 2024 (Approximate), Expires: 2025 [facility] Comment on above: Expected: 2024 (Approximate), Expires: 2025 Start: 2024 End: 2025 Microalbumin/Creatini ne panel in random Urine Microalbumin / creatinine urine ratio Lab Routine Type 2 diabetes mellitus with hyperglycemia, without long-term current use of insulin ([facility]) Expected: 2024 (Approximate), Expires: 2025 [facility] Comment on above: Expected: 2024 (Approximate), Expires: 2025 Start: 2024 End: 2025 Renal function panel Renal function panel Lab Routine Type 2 diabetes mellitus with hyperglycemia, without long-term current use of insulin ([facility]) Expected: 2024 (Approximate), Expires: 2025 [facility] Comment on above: Expected: 2024 (Approximate), Expires: 2025 Start: 2024 End: 2024 Patient encounter procedure [facility] Comment on above: Type 2 diabetes irais itus with hyperglycemia, without long-term current use of insulin ([facility]) Start: 01-29-2024 End: 03-30-2025 MG Breast - bilateral Screening Bilateral screening mammogram Imaging Routine Fibrocystic breast disease (FCBD), unspecified laterality Encounter for screening mammogram for malignant neoplasm of breast Expected: 01/29/2024 (Approximate), Expires: 03/30/2025 [facility] Comment on above: Expected: 01/29/2024 (Approximate), Expires: 03/30/2025 Start: 11-16-2023 Influenza vaccination Influenza Vacc ine (#1) [facility] Start: 2013 Screening for malignant neoplasm of cervix [facility] Start: 2004 Screening for malignant neoplasm of cervix Pap Smear [facility] THIN PREP TIS PAP AN D HR HPV DNA THIN PREP TIS PAP AND HR HPV DNA Pathology and Cytology Routine Well woman exam with routine gynecological exam Ordered: 01/29/2024 [facility] Work Phone: Comment on above: Ordered: 01/29/2024 Immunizations Immunization Date Immunization Notes Care Provider Jose ballesteros 02-10-2024 influenza, seasonal, injectable, preservative free; Translations: [Fluzone TIV PF ] Ramesh Paniagua [facility] 01-16-2023 influenza, injectabl e, quadrivalent, preservative free Rameshedwin Paniagua [facility] 01-16-2023 influenza virus vaccine, unspecified formulation Letty Kiarasusana KIMBALL Work Phone: [facility] 12-29-2021 influenza virus vaccine, unspecified formulation [facility] 01-25-2021 SARS-CoV-2 (COVID-19 ) mRNA-1273 vaccine AHMAD ADRIANO [facility] 01-01-2021 influenza virus vaccine, unspecified formulation [employer] ADRIAN[facility] 05-22-2020 SARS-CoV-2 (COVID-19 ) Ad26 vaccine, recombinant [employer] ADRIAN[facility] Comment on above: Result Comment: 2022: [id number] 12-22-2019 influenza virus vaccine, unspecified formulation NATHAN OH [facility] 12-22-2019 Influenza, injectabl e, Madin Rema Canine Kidney, preservative free, quadrivalent Nathan Oh MD Work Phone: [facility] 09-09-2019 tetanus toxoid, reduced diphtheria toxoid, and acellular pertussis vaccine, adsorbed NATHAN OH [facility] 02-03-2017 influenza virus vaccine, unspecified formulation NATHAN OH [facility] 02-03-2017 influenza, high dose seasonal, preservative-free Nathan Oh MD Work Phone: [facility] 05-23-2016 KENALOG - 10 mg Cortez Olexa [facility] Other 01-21-2014 influenza virus vaccine, unspecified formulation NATHAN OH [facility] 01-21-2014 influenza, injectabl e, quadrivalent, contains preservative Nathan Oh MD Work Phone: [facility] Payers Date Payer Category Payer Private Health Insurance [id number] 2017 [facility] er [id number] 1983 Unknown [id number] 2.840.1.686649.3.579 .2.593 1983 Unknown [id number] 2.840.1.947159.3.579 .2.593 1983 Unknown [id number] 2.840.1.763517.3.579 .2.593 1983 Unknown [id number] 2.840.1.860953.3.579 .2.593 1983 Unknown [id number] 2.840.1.019022.3.579 .2593 1983 Unknown [id number] 840.1.740981.3.579 .2.593 1983 Unknown [id number] 840.1.756980.3.579 .272 1983 Unknown [id number] 2840.1.734564.3.579 .272 1983 Unknown [id number] 840.1.783745.3.579 .2727 1983 Unknown [id number] 840.1.678375.3.579 .2.727 1983 Unknown [id number] 840.1.365876.3.579 .272 1983 Unknown [id number] 840.1.981564.3.579 .2.727 1983 Unknown [id number] 840.1.212575.3.579 .272 1983 Unknown [id number] 2840.1.870014.3.579 .2.727 1983 Unknown [id number] 2840.1.673514.3.579 .2727 1983 Unknown [id number] 2.16.840.1.124002.3.579 .2.1259 1983 Unknown [id number] 2.16.840.1.836765.3.579 .2.1259 1983 Unknown [id number] 2.16.840.1.096959.3.579 .2.1259 1983 Unknown [id number] 2.16.840.1.730553.3.579 .2.727 1983 Unknown [id number] 2.16.840.1.542370.3.579 .2.727 1983 Unknown [id number] 2.16.840.1.040478.3.579 .2.727 1983 Unknown [id number] 2.16.840.1.739439.3.579 .2.727 1983 Unknown [id number] 2.16.840.1.195706.3.579 .2.727 1983 Unknown [id number] 2.16.840.1.443502.3.579 .2.727 1983 Unknown [id number] 2.16.840.1.480694.3.579 .2.727 1985 Unknown [id number] 2.16.840.1.728080.3.579 .2.727 [address] [address] [id number] 2.16.840.1.203698.19 Social History Date Type Detail Facility Start: 01-10-2023 End: 04-01-2023 Sex Assigned At [facility] Start: 04-28-2022 Tobacco smoking status Former smokeless tobacco user, quit more than 30 days ago [facility] Comment on above: radha Start: 04-24-2023 End: 08-10-2024 Tobacco smoking status Ex-smoker (finding) [facility] [place] Comment on above: densulma End: 03-17-2005 History of tobacco use Current smoker [facility] End: 03-17-2005 History of tobacco use Cigarette Smoker [facility] Start: 01-29-2024 End: 02-09-2024 Alcoholic beverage intake Current drinker of alcohol (finding) [facility] Start: 01-10-2023 End: 04-01-2023 History of Social function [facility] How often to you hav e a drink containing alcohol? 2-4 times a month [facility] How many standard drinks containing alcohol do you have on a typical day? 1 or 2 [facility] How often do you hav e 6 or more drinks on 1 occasion? Never [facility] Start: 01-10-2023 Alcohol Comment Occasional alcohol u se [facility] Start: 1985 Sex assigned at Not on file N [facility] Healthcare Sexual Orientation [facility] Start: 06-28-2009 Sex Female (finding) [facility] Functional Status Date Assessment Result Facility 04-28-2022 Functional Status N/A [facility] Clinical Notes 12-26-2020 to 12-07-2024 Nathan Oh MD - 2024 9:10 AM Aníbal Comer LPN - 01/29/2024 8:30 AM EST Note Date & Type Note Facility 12-07-2024 Note Patient Education Dermatology Epidermoid Cyst Drainage Epidermoid cyst drainage is a procedure to drain a fluid-filled sac that forms under your skin (epidermoid cyst). This type of cyst is filled with a thick, oily substance that is secreted by your skin glands. Epidermoid cysts are usually painless. You can often move the cyst under your skin. Sometimes an epidermoid cyst gets inflamed. It may become red, swollen, and painful. In this case, you may need this procedure to drain the cyst and provide relief from the discomfort caused by an inflamed cyst. Cysts that are treated only with drainage often come back (recur). You may need to have the cyst completely removed after healing from this procedure. Tell a health care provider about: ??? Any allergies you have. ??? All medicines you are taking, including vitamins, herbs, eye drops, creams, and vzws-oll-srzhnas medicines. ??? Any problems you or family members have had with anesthetic medicines. ??? Any blood disorders you have. ??? Any surgeries you have had. ??? Any medical conditions you have. ??? Whether you are or may be . What are the risks? Generally, this is a safe procedure. However, problems may occur, including: ??? Cyst recurrence. ??? Infection. ??? Bleeding. ??? Allergic reactions to medicines. What happens before the procedure? Ask your health care provider about: ? Changing or stopping your regular medicines. This is especially important if you are taking diabetes medicines or blood thinners. ? Taking medicines such as aspirin and ibuprofen. These medicines can thin your blood. Do not take these medicines unless your health care provider tells you to take them. ? Taking xhot-olj-llrwwuc medicines, vitamins, herbs, and supplements. ??? Ask your mayra care provider what steps will be taken to help prevent infection. This may include washing your skin with a germ-killing soap. What happens during the procedure? The skin around the cyst will be injected with a numbing medicine (local anesthetic). ??? An incision will be made over the cyst, and the wall of the cyst will be opened. ??? A spreading instrument will be used to open up the cyst. ??? The contents of the cyst will be removed with suction or irrigation. ??? A thin strip of gauze packing may be placed in the cyst to keep it open and draining. ??? The incision will be left open, and the cyst will be covered with a bandage (dressing). The procedure may vary among health care providers and hospitals. What can I expect after the procedure? After the procedure, it is common to have: ??? Soreness. ??? Blood-tinged fluid draining from the cyst. This drainage may stain your dressing. Follow these instructions at home: Medicines ??? Take kwfj-nec-uackumd and prescription medicines only as told by your health care provider. ??? If you were prescribed an antibiotic medicine, take it as told by your health care provider. Do not stop taking the antibiotic even if you start to feel better. Incision care ??? Follow instructions from your health care provider about how to take care of your incision. Make sure you: ? Wash your hands with soap and water for at least 20 seconds before and after you change your dressing. If soap and water are not available, use hand glass furnace operator. ? Change your dressing as told by your health care provider. ? Do not remove the packing. Do not try to put it back in if it falls out. ? You may need to return to your health care provider in a few days to have the packing removed. ? After your packing is removed, follow instructions from your health care provider about how to keep your incision area clean. ??? Check your incision area every day for signs of infection. Check for: ? Redness, swelling, or pain. ? More fluid or blood. ? Warmth. ? Pus or a bad smell. General instructions ??? Return to your normal activities as told by your health care provider. Ask your health care provider what activities are safe for you. ??? Do not take baths, swim, or use a hot tub until your health care provider approves. Ask your health care provider if you may take showers. ??? You may need to return to your health care provider to have the cyst removed after you heal from the drainage procedure. ??? Keep all follow-up visits. This is important. Contact a health care provider if: ??? You have chills or a fever. ??? Blood soaks through your dressing. ??? You have any signs of infection, especially spreading redness or increased pus coming from the cyst. Summary ??? Epidermoid cyst drainage is a procedure to drain a fluid-filled sac that forms underneath your skin. ??? If an epidermoid cyst gets inflamed, you may need to have a procedure to drain the cyst and relieve the discomfort caused by an inflamed cyst. During epidermoid cyst drainage, you will get local anesthesia so the cyst can be opened and the content (more content not included)... [facility] 09-14-2024 Note Patient Education Endocrinology Continuous Glucose Monitoring, Adult Continuous glucose monitoring (CGM) is a way to check your blood sugar (or blood glucose) level at any time. A CGM system includes a sensor that attaches to the skin of your belly or arm. The sensor reads the amount of glucose in the fluid between the cells under your skin. Every few minutes throughout the day and night, the sensor wirelessly sends signals to a glucose monitor that records and saves the readings. With most CGM systems, you also need to do a finger stick twice each day to make sure your finger stick reading matches the reading from your CGM device. CGM reduces the number of times you need to do a finger stick throughout the day. CGM lets you to see your glucose levels in real time. This information can help you make decisions about your diet, physical activity, and diabetes medicine. With most monitors, you also need to do a finger stick and check your blood sugar level using a regular glucose monitor before making any medicine decisions. Your health care provider may prescribe a CGM system if: ??? You have type 1 diabetes. ??? You have type 2 diabetes and use insulin. ??? Your diabetes needs to be under tight control. ??? You do not always have awareness of the warning symptoms of low blood sugar. ??? You often have episodes of high blood sugar (hyperglycemia) or low blood sugar (hypoglycemia). Options for CGM systems There are several options for CGM systems. Some include monitors that: ??? You carry or wear. ??? Attach to and control an insulin pump. ??? Send readings to your smartphone, tablet, or health care provider. ??? Set off an alarm if you have low blood sugar or high blood sugar. Work with your health care provider and nurse educator to find the best option for you. Before you start using a CGM system at home, you will be trained in how to use it. Using a CGM can help you improve the results of your A1C test, which shows your average blood sugar levels for the past 3 months. Using a CGM also can help you avoid hyperglycemia or hypoglycemia. Let your health care provider know if you do not understand how to use your CGM system or have questions. What are the risks? Generally, these devices are safe to use. However, it is possible that the insertion site may become irritated or infected. Tips for using a CGM system: ??? Follow the instructions for your device carefully. Instructions are different for different systems. ??? Make sure you understand how to place the CGM sensors and set up the monitor before you start using it at home. Most devices require that you replace the CGM sensor every 3 to 7 days, depending on the model. ??? Work closely with your health care provider and nurse educator to learn about your CGM and make sure you are using your CGM system safely and effectively. ??? Do not take baths, swim, or use a hot tub unless your health care provider approves. CGM sensors are usually waterproof and can be left on in the bath or shower. CGM monitors are usually not waterproof. These should be kept dry. Follow these instructions at home: ??? Follow your diabetes treatment plan to keep your blood sugar within your target range. ??? Take action when the CGM alarm alerts you of high or low blood sugar levels. ??? Check your CGM system insertion site every day for signs of infection. Check for: ? Redness, swelling, or pain. ? Fluid or blood. ? Warmth. ? Pus or a bad smell. ??? Keep all follow-up visits as told by your health care provider. This is important. Where to find more information ??? National Institutes of Health, Continuous Glucose Monitoring: niddk.nih.gov Contact a health care provider if: ??? You are not sure how to use your CGM system or how to interpret the readings. ??? You have finger sticks that do not match your monitor readings. ??? Your CGM often alerts you of hyperglycemia or hypoglycemia. ??? You have a fever. Get help right away if: ??? You have signs of infection at your insertion site. ??? You have symptoms of hyperglycemia or hypoglycemia that do not get better with treatment. Summary ??? Continuous glucose monitoring (CGM) is a way to check your blood sugar (or bloodglucose) level at any time. ??? A CGM system includes a sensor that attaches to the skin of your belly or arm and a monitor to view the readings. ??? CGM lets you to see your blood sugar levels in real time. This information can help you make decisions about your diet, physical activity, and diabetes medicine. ??? Let your health care provider or nurse educator know if you do not understand how to use your CGM system or have questions. This information is not intended to replace advice given to you by your health care provider. Make sure you discuss any questions you have with your health care provider. Document Revised: 02/03/2023 Document Reviewed: 02/03/2023 Paul Carbajal (more content not included)... [facility] 2024 History of Present illness Narrative Se Wolf is a 39 y.o. female Nathan Oh MD presents with chief complaint of Diabetes and Follow-up (AIC 6.4% 02/15/24) HPI: IM : 02/2024 follow up visit on 2024 A1c 6.4 with her PCP on 02/2024, bg 271 in the office, on metformin 1000 am and 1000 mg pm, Trulicity 4.5 mg once weekly. IM : 10/2023 follow up visit on 11/10/2023 A1c 11 with her PCP, bg 324 in the office, on metformin 500 am and 1000 mg pm, Trulicity on and off with multiple different doses. IM : 06/2023 follow up visit on 07/07/2023 A1c 7.7, bg 146, on metformin 500 am and 1000 mg pm, Trulicity 4.5 mg weekly. IM : 02/2023 follow up visit on 02/17/2023 A1c 11, bg 306, on metformin 500 am and 1000 mg pm, Trulicity 4.5 mg weekly by her PCP, had vacation with bad eating habit. IM : 10/2022 follow up visit on 10/21/2022 A1c 7, bg 150, on metformin 500 am and 1000 mg pm, Trulicity 3 mg weekly, lab TC 244, TG 152, HDL 56, LDL 171, AL/CR 4, VIT D 41, C peptide 3.4 New patient : 06/2022 This is considered patient since I saw her more than 3 years ago. She is following with nowadays. Currently, on metformin 1000 twice a day. Trulicity increased recently to 3 mg and A1c last month 12. Blood sugar in our office 279. She is afraid about her weight. She used to get on keto and was very much watching her diet. Last time in 2019 205 lbs and now 210 and she states she has higher level before. She is afraid about adding medication. She was started on Farxiga, but she is afraid to start that, did not start it yet. Used to be on statin and blood pressure medication, gave her muscle aching so she stopped it. Interim history: 08/2018 Follow-up visit 09/03/18 for type 2 diabetes. A1c in the office 5.7, blood sugar 94. Log book meter showing between 80-130. Labs done in 08/2018 - kidney function within normal limits, total cholesterol 186, HDL 38, LDL 132, albumin/creatinine 4.8, vitamin D 23, C-peptide 3.6. She is following Keto diet and she lost almost 20 pounds and she is more energetic at this time. HPI: 06/02 New patient sent from Dr. Letty Almendarez and his nurse practitioner, VON Red for uncontrolled diabetes. A1c in 04/2018 10.6 and now is 9.4. Blood sugar is 117. Currently she is on metformin 1000 twice a day and Jardiance, not sure of the dose, daily. She has chronic yeast infection from that. Her airborne electronics analyst sent her to me. She has diabetes for 4 years after her second . She has two kids, 7 and 4 years old. She does not have high blood pressure. Only on metformin and Jardiance now. Kidney function within normal limits. Creatinine 0.7. Blood sugar on labs in April was 441. SUBJECTIVE: MEDICATIONS: Current Outpatient Medications Medication Instructions atorvastatin (LIPITOR) 20 mg, Daily cetirizine (ZYRTEC) 10 mg metFORMIN XR (GLUCOPHAGE-XR) 1,000 mg, 2 times daily omeprazole (PRILOSEC) 40 mg, Daily Trulicity 4.5 mg ALLERGIES: No Known Allergies Past Medical History: Diagnosis Date Bilateral headaches Diabetes (CMS/HCC) Diabetes mellitus ([facility]) Dietary counseling and surveillance Encounter for gynecological examination (general) (routine) without abnormal findings Hyperlipidemia (CMS/[facility]) Left lateral knee pain Obesity (BMI 30-39.9) Type 2 diabetes mellitus with hyperglycemia ([facility]) Vitamin D deficiency Past Surgical History: Procedure Laterality Date ENDOMETRIAL ABLATION 2018 HYSTERECTOMY 2019 TUBAL LIGATION 2017 WISDOM TOOTH EXTRACTION 2000 wisdom teeth REVIEW OF SYMPTOMS: Diet and exercise reviewed with the patient OBJECTIVE: Constitutional: Afebrile @ home; no weakness or night sweats SKIN: No change in skin color; no itching, rash or lesions; no hair loss; HEENT: No HAs or injury; no dizziness; No difficulty with vision; no eye pain, discharge or lesions; no hearing loss or difficulty; no nasal discharge, NECK: No pain, limitation of motion, lumps or swollen glands RESP: No cough, wheezing or difficulty breathing. No CP with breathing; CARDIO: No CP , SOB or fatigue, No edema, palpitations or dyspnea with exertion GI: No N/V/D or abd. pain; good appetite with no recent change. No heart burn, liver or gallbladder disease; no rectal bleeding or pain : No urinary pain , frequency or odor. MUSCULOSKELETAL: No muscle pain or cramps; no extremity weakness.No joint pain, stiffness, swelling or limitation of movement NEUROLOGY: No H/O seizures, stroke or fainting. No weakness, tremors. Hematology: No bleeding problems or excessive bruising ENDOCRINE: No increase in hunger, thirst or urination; admits compliance to medical management plan Feet: numbness tingling yes , ulcers or skin break no No results found for: HGBA1C Lab Results Component Value Date GLU 271 2024 Visit Vitals BP 104/78 Pulse 93 Resp 18 Ht 5' 3 Wt 208 lb BMI 36.85 kg/m Smoking Status Former BSA 2.05 m ASSESSMENT AND PLAN: Assessment/Plan Diagnoses and all orders for this visit: Type 2 diabetes mellitus with hyperglycemia, without long-term current use of insulin ([facility]) - POCT glucose manually resulted - Vitamin D 25 hydroxy Total; Future - Microalbumin / creatinine urine ratio; Future - Lipid panel; Future - Renal function panel; Future Continue with Trulicity 4.5 mg once weekly, metformin 1000 twice a day. Vitamin D deficiency Encounter for dietary consultation Diet and exercise reviewed with the patient Hyperlipemia, mixed ([facility]) Follow up in about 6 months (around 08/30/2024). documented in this encounter [facility] 02-10-2024 Note Patient Education Nutrition BMI for Adults Body mass index (BMI) is a number found using a person's weight and height. BMI can help tell how much of a person's weight is made up of fat. BMI does not measure body fat directly. It is used instead of tests that directly measure body fat, which can be difficult and expensive. What are BMI measurements used for? BMI is useful to: ??? Find out if your weight puts you at higher risk for medical problems. ??? Help recommend changes, such as in diet and exercise. This can help you reach a healthy weight. BMI screening can be done again to see if these changes are working. How is BMI calculated? Your height and weight are measured. The BMI is found from those numbers. This can be done with U.[place] or metric measurements. Note that charts and online BMI calculators are available to help you find your BMI quickly and easily without doing these calculations. To calculate your BMI in [place] measurements: 1. Measure your weight in pounds (lb). 2. Multiply the number of pounds by 703. ??? So, for an adult who weighs 150 lb, multiply that number by 703: 150 x 703, which equals 105,450. 3. Measure your height in inches. Then multiply that number by itself to get a measurement called inches squared. ??? So, for an adult who is 70 inches tall, the inches squared measurement is 70 inches x 70 inches, which equals 4,900 inches squared. 4. Divide the total from step 2 (number of lb x 703) by the total from step 3 (inches squared): 105,450 ? 4,900 = 21.5. This is your BMI. To calculate your BMI in metric measurements: 1. Measure your weight in kilograms (kg). ??? For this example, the weight is 70 kg. 2. Measure your height in meters (m). Then multiply that number by itself to get a measurement called meters squared. ??? So, for an adult who is 1.75 m tall, the meters squared measurement is 1.75 m x 1.75 m, which equals 3.1 meters squared. 3. Divide the number of kilograms (your weight) by the meters squared number. In this example: 70 ? 3.1 = 22.6. This is your BMI. What do the results mean? BMI charts are used to see if you are underweight, normal weight, overweight, or obese. The following guidelines will be used: ??? Underweight: BMI less than 18.5. ??? Normal weight: BMI between 18.5 and 24.9. ??? Overweight: BMI between 25 and 29.9. ??? Obese: BMI of 30 or above. BMI is a tool and cannot diagnose a condition. Talk with your health care provider about what your BMI means for you. Keep these notes in mind: ??? Weight includes fat and muscle. Someone with a muscular build, such as an athlete, may have a BMI that is higher than 24.9. In cases like these, BMI is not a correct measure of body fat. ??? If you have a BMI of 25 or higher, your provider may need to do more testing to find out if excess body fat is the cause. ??? BMI is measured the same way for males and females. Females usually have more body fat than males of the same height and weight. Where to find more information For more information about BMI, including tools to quickly find your BMI, go to: ??? Centers for Disease Control and Prevention: cdc.gov ??? [place] Heart Association: heart.org ??? National Heart, Lung, and Blood [place]: nhlbi.nih.gov This information is not intended to replace advice given to you by your health care provider. Make sure you discuss any questions you have with your health care provider. Document Revised: 11/21/2022 Document Reviewed: 11/14/2022 [employer] Patient Education ? 2023 [employer]. [facility] 01-29-2024 History of Present illness Narrative Reason for Appointment: Patient ID: Se Wolf is a 38 y.o. female who presents for Well Women Visit Patient presents today for Annual Exam. MEDICATIONS Current Outpatient Medications Medication Instructions atorvastatin (LIPITOR) 20 mg, Oral, Daily cetirizine (ZYRTEC) 10 mg, Oral metFORMIN XR (GLUCOPHAGE-XR) 1,000 mg, Oral, 2 times daily omeprazole (PRILOSEC) 40 mg, Oral, Daily Trulicity 4.5 mg, Subcutaneous ALLERGIES Allergies Allergen Reactions Methylprednisolone Unknown PROBLEMS Active Ambulatory Problems Diagnosis Date Noted No Active Ambulatory Problems Resolved Ambulatory Problems Diagnosis Date Noted No Resolved Ambulatory Problems Past Medical History: Diagnosis Date Bilateral headaches Diabetes (CMS/HCC) Diabetes mellitus (CMS/HCC) Encounter for gynecological examination (general) (routine) without abnormal findings Hyperlipidemia (CMS/HCC) Left lateral knee pain Obesity (BMI 30-39.9) HISTORY PAST MEDICAL HISTORY SOCIAL HISTORY Past Medical History: Diagnosis Date Bilateral headaches Diabetes (CMS/HCC) Diabetes mellitus (CMS/HCC) Encounter for gynecological examination (general) (routine) without abnormal findings Hyperlipidemia (CMS/HCC) Left lateral knee pain Obesity (BMI 30-39.9) Social History Tobacco Use Smoking status: Former Current packs/day: 0.00 Types: Cigarettes Quit date: 2005 Years since quittin.8 Smokeless tobacco: Not on file Substance Use Topics Alcohol use: Yes Comment: Occasional alcohol use Drug use: Never FAMILY HISTORY Family History Problem Relation Name Age of Onset Hypertension Mother Hyperlipidemia Mother Hyperlipidemia Father Hypertension Father Diabetes Father SURGICAL HISTORY Past Surgical History: Procedure Laterality Date ENDOMETRIAL ABLATION 2018 HYSTERECTOMY 2019 TUBAL LIGATION 2017 WISDOM TOOTH EXTRACTION 2000 wisdom teeth REVIEW OF SYSTEMS Review of Systems: Review of Systems All other systems reviewed and are negative. OBJECTIVE Objective: Physical Exam Constitutional: Appearance: Normal appearance. She is well-developed. Genitourinary: Vulva normal. Vaginal cuff intact. Cervix is absent. Uterus is absent. Breasts: Breasts are soft. Right: Normal. Left: Normal. Cardiovascular: Rate and Rhythm: Normal rate and regular rhythm. Abdominal: General: Bowel sounds are normal. There is no distension. Palpations: Abdomen is soft. Tenderness: There is no abdominal tenderness. There is no guarding or rebound. Musculoskeletal: General: No swelling. Normal range of motion. Right lower leg: No edema. Left lower leg: No edema. Neurological: Mental Status: She is alert and oriented to person, place, and time. Skin: General: Skin is warm and dry. Psychiatric: Mood and Affect: Mood normal. Behavior: Behavior normal. Vitals and nursing note reviewed. Exam conducted with a recycler forklift driver truck driver present. Vitals: Estimated body mass index is 35.02 kg/m as calculated from the following: Height as of 18: 5' 4 . Weight as of this encounter: 204 lb. BP: 112/78 No LMP recorded. ASSESSMENT & PLAN ICD-10-CM 1. Well woman exam with routine gynecological exam Z01.419 THIN PREP TIS PAP AND HR HPV DNA 2. Breast cancer screening by mammogram Z12.31 Annual: Patient presents today for an annual exam. Patient states she is doing well and has no complaints. Pap was obtained without difficulty and patient given mammogram order to have scheduled/obtained. Answered patients questions in regards to ovaries after hysterectomy. Follow Up: Patient is to return in one year for annual unless needed otherwise. Documented by Nicole Comer LPN on behalf of: Letty Almendarez DO documented in this encounter [facility] 10-22-2023 Note Patient Education Endocrinology Type 2 Diabetes Mellitus, Diagnosis, Adult Type 2 diabetes (type 2 diabetes mellitus) is a long-term (chronic) disease. It may happen when there is one or both of these problems: ? The pancreas does not make enough insulin. ? The body does not react in a normal way to insulin that it makes. Insulin lets sugars go into cells in your body. If you have type 2 diabetes, sugars cannot get into your cells. Sugars build up in the blood. This causes high blood sugar. What are the causes? The exact cause of this condition is not known. What increases the risk? ? Having type 2 diabetes in your family. ? Being overweight or very overweight. ? Not being active. ? Your body not reacting in a normal way to the insulin it makes. ? Having higher than normal blood sugar over time. ? Having a type of diabetes when you were . ? Having a condition that causes small fluid-filled sacs on your ovaries. What are the signs or symptoms? At first, you may have no symptoms. You will get symptoms slowly. They may include: ? More thirst than normal. ? More hunger than normal. ? Needing to pee more than normal. ? Losing weight without trying. ? Feeling tired. ? Feeling weak. ? Seeing things blurry. ? Dark patches on your skin. How is this treated? This condition may be treated by a diabetes expert. You may need to: ? Follow an eating plan made by a food expert (dietitian). ? Get regular exercise. ? Find ways to deal with stress. ? Check blood sugar as often as told. ? Take medicines. Your doctor will set treatment goals for you. Your blood sugar should be at these levels: ? Before meals: 80?130 mg/dL (4.4?7.2 mmol/L). ? After meals: below 180 mg/dL (10 mmol/L). ? Over the last 2?3 months: less than 7%. Follow these instructions at home: Medicines ? Take your diabetes medicines or insulin every day. ? Take medicines as told to help you prevent other problems caused by this condition. You may need: ? Aspirin. ? Medicine to lower cholesterol. ? Medicine to control blood pressure. Questions to ask your doctor ? Should I meet with a nurse educator? ? What medicines do I need, and when should I take them? ? What will I need to treat my condition at home? ? When should I check my blood sugar? ? Where can I find a support group? ? Who can I call if I have questions? ? When is my next doctor visit? General instructions ? Take [id number] and prescription medicines only as told by your doctor. ? Keep all follow-up visits. Where to find more information For help and guidance and more information about diabetes, please go to: ? [place] Diabetes Association (ADA): www.diabetes.org ? [place] [employer] of Diabetes Care and Education Specialists (ADCES): www.diabeteseducator.org ? International Diabetes Federation (IDF): www.idf.org Contact a doctor if: ? Your blood sugar is at or above 240 mg/dL (13.3 mmol/L) for 2 days in a row. ? You have been sick for 2 days or more, and you are not getting better. ? You have had a fever for 2 days or more, and you are not getting better. ? You have any of these problems for more than 6 hours: ? You cannot eat or drink. ? You feel like you may vomit. ? You vomit. ? You have watery poop (diarrhea). Get help right away if: ? Your blood sugar is lower than 54 mg/dL (3 mmol/L). ? You feel mixed up (confused). ? You have trouble thinking clearly. ? You have trouble breathing. ? You have medium or large ketone levels in your pee. These symptoms may be an emergency. Get help right away. Call your local emergency services (911 in the [place] ? Do not wait to see if the symptoms will go away. ? Do not drive yourself to the hospital. Summary ? Type 2 diabetes is a long-term disease. Your pancreas may not make enough insulin, or your body may not react in a normal way to insulin that it makes. ? This condition is treated with an eating plan, lifestyle changes, and medicines. ? Your doctor will set treatment goals for you. These will help you keep your blood sugar in a healthy range. ? Keep all follow-up visits. This information is not intended to replace advice given to you by your health care provider. Make sure you discuss any questions you have with your health care provider. Document Revised: 05/28/2021 Document Reviewed: 05/28/2021 [employer] Patient Education ? 2022 [employer] Mental and Behavioral Health Adjustment Disorder, Adult Adjustment disorder is a group of symptoms that can develop after a stressful life event, such as the loss of a job or a serious physical illness. The symptoms can affect how you feel, think, and act. They may also interfere with your relationships. Adjustment disorder increases your risk of suicide and substance abuse. If adjustment disorder is not managed early, it can make medical conditions that you already have worse. If the (more content not included)... [facility] 04-28-2022 Evaluation + Plan note Extrac yelena from: Title:ED Note Author:Armin Crabtree DO Date :04/28/22 Acute URI (J06.9: Acute uppe r respiratory infection, unspecified) Orders: acetaminophen, 650 mg = 2 tab(s), Tab, Oral, Once, Stop date 04/28/22 1:59:00 EST, STAT, Start date 04/28/22 1:59:00 EST, 04/28/22 1:59:00 EST brompheniramine/dextromethorphan/PSE, 5 mL, Syrup, Oral, Once, Stop date 04/28/22 2:41:00 EST, STAT, Start date 04/28/22 2:41:00 EST brompheniramine/dextromethorphan/PSE, 5 mL, Oral, QID for cough and congestion, 200 mL, Refill(s) 0, [facility]/pharmacy #[id number], 160, cm, 04/28/22 1:52:00 EST, Height/Length Dosing, 98, kg, 04/28/22 1:52:00 EST, Weight Dosing Influenza A&B Ag Rapid COVID Antigen ([facility]) [facility]02-12-2023 Hospital Discharge instructions Patient Education 04/28/2022 02:58:03 Upper Respiratory Infection, Adult Upper Respiratory Infection, Adult An upper respiratory infection (URI) is a common viral infection of the nose, throat, and upper airpassages that lead to the lungs. The most common type of URI is the common cold. URIs usually get better on their own, without medical treatment. What are the causes? A URI is caused by a virus. You may catch a virus by: Breathing in droplets from an infected person's cough or sneeze. Touching something that has been exposed to the virus (contaminated) and then touching your mouth, nose, or eyes. What increases the risk? You are more likely to get a URI if: You are very young or very old. It is jeff or winter. You have close contact with others, such as at a daycare, school, or health care facility. You smoke. You have long-term (chronic) heart or lung disease. You have a weakened disease-fighting (immune) system. You have nasal allergies or asthma. You are experiencing a lot of stress. You work in an area that has poor air circulation. You have poor nutrition. What are the signs or symptoms? A URI usually involves some of the following symptoms: Runny or stuffy (congested) nose. Sneezing. Cough. Sore throat. Headache. Fatigue. Fever. Loss of appetite. Pain in your forehead, behind your eyes, and over your cheekbones (sinus pain). Muscle aches. Redness or irritation of the eyes. Pressure in the ears or face. How is this diagnosed? This condition may be diagnosed based on your medical history and symptoms, and a physical exam. Your health care provider may use a cotton swab to take a mucus sample from your nose (nasal swab). This sample can be tested to determine what virus is causing the illness. How is this treated? URIs usually get better on their own within 7 10 days. You can take steps at home to relieve your symptoms. Medicines cannot cure URIs, but your health care provider may recommend certain medicines to help relieve symptoms, such as: Utzq-hnj-ichikqb cold medicines. Cough suppressants. Coughing is a type of defense against infection that helps to clear the respiratory system, so take these medicines only as recommended by your health care provider. Fever-reducing medicines. Follow these instructions at home: Activity Rest as needed. If you have a fever, stay home from work or school until your fever is gone or until your health care provider says you are no longer contagious. Your health care provider may have you wear a face mask to prevent your infection from spreading. Relieving symptoms Gargle with a salt-water mixture 3 4 times a day or as needed. To make a salt- water mixture, completely dissolve 1 tsp of salt in 1 cup of warm water. Use a cool-mist humidifier to add moisture to the air. This can help you breathe more easily. Eating and drinking Drink enough fluid to keep your urine pale yellow. Eat soups and other clear broths. General instructions Take zqqh-fbm-eypdhyd and prescription medicines only as told by your health care provider. These include cold medicines, fever reducers, and cough suppressants. Do not use any products that contain nicotine or tobacco, such as cigarettes and e-cigarettes. If you need help quitting, ask your health care provider. Stay away from secondhand smoke. Stay up to date on all immunizations, including the yearly (annual) flu vaccine. Keep all follow-up visits as told by your health care provider. This is important. How to prevent the spread of infection to others URIs can be passed from person to person (are contagious). To prevent the infection from spreading: ?Wash your hands often with soap and water. If soap and water are not available, use hand glass furnace operator. ?Avoid touching your mouth, face, eyes, or nose. ?Cough or sneeze into a tissue or your sleeve or elbow instead of into your hand or into the air. Contact a health care provider if: You are getting worse instead of better. You have a fever or chills. Your mucus is brown or red. You have yellow or brown discharge coming from your nose. You have pain in your face, especially when you bend forward. You have swollen neck glands. You have pain while swallowing. You have white areas in the back of your throat. Get help right away if: You have shortness of breath that gets worse. You have severe or persistent: ?Headache. ?Ear pain. ?Sinus pain. ?Chest pain. You have chronic lung disease along with any of the following: ?Wheezing. ?Prolonged cough. ?Coughing up blood. ?A change in your usual mucus. You have a stiff neck. You have changes in your: ?Vision. ?Hearing. ?Thinking. ?Mood. Summary An upper respiratory infection (URI) is a common infection of the nose, throat, and upper air passages that lead to the lungs. A URI is caused by a virus. URIs usually get better on their own within 7 10 days. Medicines cannot cure URIs, but your health care provider may recommend certain medicines to help relieve symptoms. This information is not intended to replace advice given to you by your health care provider. Make sure you discuss any questions you have with your health care provider. Document Released: 08/27/2001 Document Revised: 03/11/2019 Document Reviewed: 10/17/2017 [employer] Patient Education 2020 [employer]. Follow Up Care 04/28/2022 01:46:16 With:DARNELL ROBERTSON Address: [address] [address] Business (1) When:05/03/2022 [facility]10-12-2021 Evaluation note* Encounter Date Diagnosis Assessment Notes Treatment Notes Treatment Clinical Notes Dec, Acute pain of right shoulder (ICD-10 - M25.511) Dec, Arthritis of right acromioclavicular joint (ICD-10 - M19.011) This is pain secondary to AC arthritis and cuff tendonitis. We discussed the importance of maintaining shoulder motion and demonstrated motion exercise in flexion, internal and external rotation. We discussed the use of non-steroidal anti-inflammatory medication. Discussed limiting strenuous use of the shoulder which will aggravate symptoms. Discussed that occasional intra-articular cortisone injection may be helpful. Patient instructed on gentle motion and strength exercise. Patient instructed on use of occasional heat to area and motion exercise. Dec, Tendinitis of right rotator cuff (ICD-10 - M75.81) [facility] Other Evaluation + Plan note Future Appointments Appointment Date:07/24/2023 07:00:00 AM Scheduled Provider:Ramesh Paniagua MD Location:[facility] Appointment Type: Open Future Scheduled Tests Laboratory* HgbA1c 04/24/23 * Microalbumin Level Urine 04/24/23 * CBC w/ Auto Diff 04/24/23 * Comprehensive Metabolic Panel 04/24/23 * Lipid [facility]ments Appointment Date:02/10/2024 07:00:00 AM Scheduled Provider:Ramesh Paniagua MD Location:[facility] Appointment Type: Open Future Scheduled Tests Laboratory* HgbA1c 04/24/23 * Microalbumin Level Urine 04/24/23 * CBC w/ Auto Diff 04/24/23 * Comprehensive Metabolic Panel 04/24/23 * Lipid Panel 04/24/23 [facility] Evaluation + Plan note Future Appointments Appointment Date:10/14/2022 07:00:00 AM Scheduled Provider:Ramesh Paniagua MD Location:[facility] Appointment Type: New Patient - Adult Diagnostic Tests Pending * C-Peptide [facility]11/22 [facility] Future App[facility]ments Appointment Date:01/31/2025 03:20:00 PM Scheduled Provider:Ramesh Paniagua MD Location:[facility] Appointment Type: Preventative Visit [facility] evaluation note* Diagnosis Well woman exam with routine gynecological exam Routine gynecological examination Breast cancer screening by mammogram Fibrocystic breast disease (FCBD), unspecified laterality Encounter for screening mammogram for malignant neoplasm of breast documented [facility]* Diagnosis Type 2 diabetes mellitus with hyperglycemia, without long-term current use of insulin ([facility])- Primary Vitamin D deficiency Encounter for dietary consultation Hyperlipemia, mixed ([facility]) Mixed hyperlipidemia documented in this encounter [facility] N[facility]ative - Reported* Type Description Date Medical History diabetes mallitus Surgical History wisdom teeth Surgical History tubal ligation Surgical History uterine ablassion Surgical History hysterectomy [facility] Other Hospital course Narrative No data available for this section [facility] No data available for this section [facility] No data available for this section [facility] Summary Purpose Family History No Family History Records FoundNo Family History Records Found No data available for this section No data available for this section No Family History Records FoundNo Family History Records Found No data available for this section No Family History Records FoundNo Family History Records FoundNo Family History Records FoundNo Family History Records FoundNo Family History Records FoundNo Family History Records FoundNo Family History Records Found Advance Directives No Advanced Directives Records FoundNo Advanced Directives Records FoundNo Advanced Directives Records FoundNo Advanced Directives Records FoundNo Advanced Directives Records FoundNo Advanced Directives Records FoundNo Advanced Directives Records FoundNo Advanced Directives Records FoundNo Advanced Directives Records FoundNo Advanced Directives Records FoundNo Advanced Directives Records Found Additional Source Comments INFORMATION SOURCE (unrecogn ized section and content) DATE CREATED AUTHOR 01/01/2021 [facility] DATE CREATED AUTHOR AUTHOR'S ORGANIZ ATION 05/22/2022 [facility] DATE CREATED AUTHOR AUTHOR'S ORGANIZ ATION 02/11/2024 [facility] DATE CREATED AUTHOR AUTHOR'S ORGANIZ ATION 03/02/2024 [facility] DATE CREATED AUTHOR AUTHOR'S ORGANIZ ATION 08/12/2024 [facility] DATE CREATED AUTHOR AUTHOR'S ORGANIZ ATION 08/13/2024 [facility] DATE CREATED AUTHOR AUTHOR'S ORGANIZ ATION 12/08/2024 [facility] REASON FOR VISIT (unrecogniz ed section and content) Reason Comments Well Women Visit Reason Comments Diabetes Follow-up AIC 6.4% 02/15/24 Patient Care team informatio n (unrecognized section and content) Cso Relationship Specialty Start Date End Date Ramesh Paniagua MD [address] [place] [address] PCP - General Family Medicine 11/11/23 Cso Relationship Specialty Start Date End Date Ramesh Paniagua MD [address] [place] [address] PCP - General Family Medicine 11/11/23 Cso Relationship Specialty Start Date End Date Ramesh Paniagua MD [address], [place] [id number] PCP - General Family Medicine 11/11/23 Cso Relationship Specialty Start Date End Date Ramesh Paniagua MD [address] [place] [address] PCP - General Family Medicine 11/11/23 FOR RECORDS PERTAINING TO PATIENTS WHO ARE OR HAVE BEEN ENROLLED IN A CHEMICAL DEPENDENCY/SUBSTANCEABUSE PROGRAM, SOME INFORMATION MAY BE OMITTED. This clinical summary was aggregated from multiple sources. Caution should be exercised in using it in the provision of clinical care. This summary normalizes information from multiple sources, and as a consequence, information in this document may materially change the coding, format and clinical context of patient data. In addition, data may be omitted in some cases. CLINICAL DECISIONS SHOULD BE BASED ON THE PRIMARY CLINICAL RECORDS. [employer]. provides no warranty or guarantee of the accuracy or completeness of information in this document.
== END 2024-12-18 07:32 | disposition home or self-care (01) ==
LOC: LAB 07:31
PROVIDERS: PCP Nurse Practitioner Family; Visit Provider Nurse Practitioner Family
DX: E11.9 Type 2 diabetes mellitus without complications (principal)
CPT/HCPCS: 36415; 83036